=== PATIENT | male | born 1935 | race Caucasian/White ===

== ENCOUNTER → 2017-03-07 | Outpatient (CLI) | payer MEDICARE ==
[2017-03-07 09:18] LABS: Basophils % (A) 0 %; CH 29.8; CHCM 32.2; Eosinophils % (A) 1 %; HCT 52.6 % (39.0-53.0); HDW 2.39; HGB 16.6 gm/dL (13.0-17.5); Luc # (Auto) 0.13; Luc % (Auto) 2; Lymphocytes # (A) 1.4 k/uL (1.0-4.8); Lymphocytes % (A) 19 %; MCH 29.3 pg (25.0-35.0); MCHC 31.6 g/dL (31.0-37.0); MCV 92.7 fL (80.0-100.0); Monocytes # (A) 0.4 k/uL (0-1.0); Monocytes % (A) 5 %; Neutrophils # (A) 5.4 k/uL (1.3-7.7); Neutrophils % (A) 73 %; RBC 5.68 m/uL (4.30-5.90); RDW 13.8 % (11.5-15.5); WBC 7.3 k/uL (3.8-10.6); WBC (Perox) 7.26
[2017-03-07 09:40] LABS: ALT 34 U/L (21-72); AST 24 U/L (17-59); Alkaline Phosphatase 90 U/L (38-126); Anion Gap 11 mmol/L; Blood Urea Nitrogen 15 mg/dL (9-20); Calcium 9.5 mg/dL (8.4-10.2); Carbon Dioxide 22 mmol/L (22-30); Chloride 106 mmol/L (98-107); Cholesterol 239 mg/dL (<200); Glucose 111 mg/dL (74-99); HDL Cholesterol 60 mg/dL (40-60); Non-African American GFR(MDRD) >60 (>60 ml/min/1.73 sqM); Potassium 4.6 mmol/L (3.5-5.1); Sodium 139 mmol/L (137-145); Total Bilirubin 0.7 mg/dL (0.2-1.3); Triglycerides 100 mg/dL (<150)
== END | disposition home or self-care (01) ==
LOC: LABWHC1 08:35
PROVIDERS: ATTEND Internal Medicine
DX: E78.5 Hyperlipidemia, unspecified (principal)
CPT/HCPCS: 36415; 80053; 80061; 84439; 84443; 85025

== ENCOUNTER → 2018-10-01 | Outpatient (CLI) | payer MEDICARE ==
[2018-10-01 10:12] LABS: Basophils # (A) 0.1 k/uL (0-0.2); Basophils % (A) 1 %; Eosinophils # (A) 0.5 k/uL (0-0.7); Eosinophils % (A) 5 %; HCT 51.3 % (39.0-53.0); HGB 16.7 gm/dL (13.0-17.5); Lymphocytes # (A) 1.9 k/uL (1.0-4.8); Lymphocytes % (A) 19 %; MCH 30.2 pg (25.0-35.0); MCHC 32.5 g/dL (31.0-37.0); MCV 92.8 fL (80.0-100.0); Mean Platelet Volume 6.9; Monocytes # (A) 0.7 k/uL (0-1.0); Monocytes % (A) 7 %; Neutrophils # (A) 6.6 k/uL (1.3-7.7); Neutrophils % (A) 67 %; Platelet Count 245 k/uL (150-450); RBC 5.53 m/uL (4.30-5.90); RDW 14.1 % (11.5-15.5); WBC 9.9 k/uL (3.8-10.6)
[2018-10-01 16:06] LABS: Albumin 4.1 g/dL (3.80-4.90); Albumin/Globulin Ratio 1.71 (1.20-2.10); Anion Gap 8.7 mmol/L (4.00-12.00); Calcium 8.8 mg/dL (8.7-10.3); Carbon Dioxide 26.3 mmol/L (21.6-31.8); Globulin 2.4 g/dL (2.1-3.7); LDL Cholesterol,Calculated 124.6 mg/dL (0.0-131.0); Potassium 4.1 mmol/L (3.5-5.5); Total Bilirubin 0.7 mg/dL (0.3-1.2); Total Protein 6.5 g/dL (6.2-8.2); VLDL Calculation 24.4 mg/dL (5.00-40.00)
[2018-10-01 16:13] LABS: T4, Free (Free Thyroxine) 1.1 ng/dL (0.80-1.80)
== END ==
LOC: LABWHC1 08:21
PROVIDERS: ATTEND Internal Medicine
DX: Z00.00 Encounter for general adult medical examination without abnormal findings (principal); E78.5 Hyperlipidemia, unspecified; I10 Essential (primary) hypertension
CPT/HCPCS: 36415; 80053; 80061; 84439; 84443; 85025

== ENCOUNTER → 2019-10-07 | Outpatient (CLI) | payer MEDICARE ==
[2019-10-07 08:58] LABS: Basophils % (A) 1 %; Eosinophils # (A) 0.3 k/uL (0-0.7); Eosinophils % (A) 4 %; HCT 50.7 % (39.0-53.0); HGB 16.6 gm/dL (13.0-17.5); Lymphocytes # (A) 1.8 k/uL (1.0-4.8); Lymphocytes % (A) 24 %; MCH 30.6 pg (25.0-35.0); MCHC 32.7 g/dL (31.0-37.0); MCV 93.6 fL (80.0-100.0); Mean Platelet Volume 7.4; Monocytes # (A) 0.4 k/uL (0-1.0); Monocytes % (A) 6 %; Neutrophils # (A) 4.6 k/uL (1.3-7.7); Neutrophils % (A) 63 %; Platelet Count 238 k/uL (150-450); RBC 5.42 m/uL (4.30-5.90); RDW 13.6 % (11.5-15.5); WBC 7.2 k/uL (3.8-10.6)
[2019-10-07 16:09] LABS: African American GFR (CKD) 96.4 (60.0-200.0); Albumin 4.5 g/dL (3.80-4.90); Albumin/Globulin Ratio 1.96 (1.60-3.17); Anion Gap 10.3 mmol/L (4.00-12.00); Calcium 9.3 mg/dL (8.7-10.3); Carbon Dioxide 23.7 mmol/L (21.6-31.8); Chol/HDL Ratio 4.13; Globulin 2.3 g/dL (1.6-3.3); Non-African American GFR(CKD) 83.2 (60.0-200.0); Potassium 4.3 mmol/L (3.5-5.5); Total Bilirubin 0.6 mg/dL (0.2-1.2); Total Protein 6.8 g/dL (6.2-8.2)
[2019-10-07 16:17] LABS: T4, Free (Free Thyroxine) 1.1 ng/dL (0.80-1.80)
== END ==
LOC: LABWHC1 08:15
PROVIDERS: ATTEND Internal Medicine
DX: Z00.00 Encounter for general adult medical examination without abnormal findings (principal); I10 Essential (primary) hypertension; E78.5 Hyperlipidemia, unspecified
CPT/HCPCS: 36415; 80053; 80061; 84439; 84443; 85025

== ENCOUNTER 2019-12-12 15:28 | Emergency (ER) | payer MEDICARE ==
[2019-12-12 15:38] VITALS: BP 155/80; PULSE 88; TEMP 98
[2019-12-12] MEDS ORDERED: LIDOCAINE 1% INJ 10MG/ML (20 ML MDV) SQ ONE (15:54)
[2019-12-12] MEDS ORDERED: DIPH,PERTUS(ACELL)TETVAC-LF 0.5 ML VIAL IM ONE (15:54)
--- NOTE | 2019-12-12 16:34 | ED ---
Wound/Laceration HPI - General Chief Complaint: Wound/Laceration Stated Complaint: Cheek laceration Time Seen by Provider: 12/12/19 15:44 Source: patient Mode of arrival: ambulatory Limitations: no limitations - History of Present Illness Initial Comments: Patient is an 84-year-old male presenting to emergency Department with complaints of a small laceration on the right side of his cheek. Patient states he was sawing some wood when a piece flew off and hit him on the right side of his cheek, just underneath his right eye. He states there was no foreign objects in his right eye. He has no other injuries at this time. He denies being on blood thinners. He is controlled at this time with a bandage. Patient is unsure of his last tetanus vaccine but admits it has been close to 20 years. Patient has no other complaints. Upon arrival to the ER his vital signs are stable. - Related Data Home Medications Medication Instructions Recorded Confirmed Albuterol Sulfate [Proair Hfa] 2 puff INHALATION BID 04/08/14 08/01/16 Fluticasone Propionate [Flovent 1 puff INHALATION DIRECTED PRN 04/08/14 08/01/16 Diskus] Fluticasone/Salmeterol [Advair 1 puff INHALATION BID 04/08/14 08/01/16 100-50 Diskus] Montelukast [Singulair] 10 mg PO HS 04/08/14 08/01/16 Tamsulosin HCl 0.4 mg PO DAILY 04/08/14 08/01/16 Ferrous Sulfate [Feosol] 325 mg PO BID 07/31/16 07/31/16 Naproxen Sodium [Aleve] 220 mg PO HS PRN 07/31/16 08/01/16 diphenhydrAMINE [Benadryl] 50 mg PO HS PRN 07/31/16 08/01/16 Allergies Allergy/AdvReac Type Severity Reaction Status Date / Time No Known Allergies Allergy Verified 07/31/16 10:31 Review of Systems ROS Statement: Those systems with pertinent positive or pertinent negative responses have been documented in the HPI. ROS Other: All systems not noted in ROS Statement are negative. Past Medical History Past Medical History: Asthma, Prostate Disorder Additional Past Medical History / Comment(s): spouse states "was passing blood with stools,hx hemorrhoids",HIATAL HERNIA, SARCOIDOSIS,enlarged prostate History of Any Multi-Drug Resistant Organisms: None Reported Past Surgical History: Appendectomy, Orthopedic Surgery Additional Past Surgical History / Comment(s): RT ROTATOR CUFF, LYMPH NODE BX Past Anesthesia/Blood Transfusion Reactions: No Reported Reaction Past Psychological History: No Psychological Hx Reported Smoking Status: Never smoker Past Alcohol Use History: None Reported Past Drug Use History: None Reported - Past Family History Mother Family Medical History: No Reported History Father Family Medical History: No Reported History General Exam - General Exam Comments Initial Comments: GENERAL: Well-appearing, well-nourished and in no acute distress. HEAD: Atraumatic, normocephalic. EYES: Pupils equal round and reactive to light, extraocular movements intact, sclera anicteric, conjunctiva are normal. ENT: TMs normal, nares patent, oropharynx clear without exudates. Moist mucous membranes. NECK: Normal range of motion, supple without lymphadenopathy or JVD. LUNGS: Breath sounds clear to auscultation bilaterally and equal. No wheezes rales or rhonchi. HEART: Regular rate and rhythm without murmurs, rubs or gallops. ABDOMEN: Soft, nontender, normoactive bowel sounds. No guarding, no rebound. No masses appreciated. EXTREMITIES: Normal range of motion, no pitting or edema. NEUROLOGICAL: Normal speech, normal gait. PSYCH: Normal mood, normal affect. SKIN: Warm, Dry, normal turgor, no rashes. Patient has a 0.5 cm laceration to the lateral aspect of the right cheek below the right eye. Bleeding is controlled at this time. Limitations: no limitations Course Vital Signs 12/12/19 12/12/19 15:34 16:35 Temperature 98.0 F Pulse Rate 88 Respiratory 18 16 Rate Blood Pressure 155/80 O2 Sat by Pulse 96 Oximetry Procedures - Laceration Laceration #1 Consent Obtained: verbal consent Indication: laceration Site: face (Right cheek) Size (cm): 0 (0.5) Description: linear Depth: simple, single layer Anesthetic Used: lidocaine 1% Anesthesia Technique: local infiltration Amount (mls): 2 Pre-repair: irrigated extensively Type of Sutures: nylon Size of Sutures: 5-0 Number of Sutures: 1 Technique: simple, interrupted Patient Tolerated Procedure: well Medical Decision Making - Medical Decision Making Patient is an 84-year-old male presenting with a 0.5 cm laceration to his right cheek after a piece of wood flew at home from his saw. He has no other injuries. Wound was irrigated and closed with one, 5 0-0 suture. Patient tolerated procedure well. Patient's tetanus vaccine was also updated today. Patient will have suture removed in 7-10 days. Return parameters were discussed with the patient and he verbalized understanding. He is stable for discharge. Disposition Clinical Impression: Laceration of right cheek without complication Disposition: HOME SELF-CARE Condition: Stable Instructions (If sedation given, give patient instructions): Care For Your Stitches (ED) Additional Instructions: Please return to the Emergency Department if symptoms worsen or any other concerns. Stitch needs to be removed in 7-10 days. Keep wound covered while working. Is patient prescribed a controlled substance at d/c from ED?: No Referrals: Mitesh Chris MD [Primary Care Provider] - 1-2 days
[2019-12-12 16:39] VITALS: RESP 16
== END 2019-12-12 16:35 | disposition home or self-care (01) ==
LOC: EC 15:28
DX: S01.411A Laceration without foreign body of right cheek and temporomandibular area, initial encounter (principal); Z23 Encounter for immunization; J45.909 Unspecified asthma, uncomplicated; Z79.899 Other long term (current) drug therapy; Z79.51 Long term (current) use of inhaled steroids; W20.8XXA Other cause of strike by thrown, projected or falling object, initial encounter
CPT/HCPCS: 99282; 90471; 12011; 90715; J2001

== ENCOUNTER 2019-12-31 16:13 | Inpatient (IN) | payer MEDICARE ==
[2019-12-31] MEDS ORDERED: PANTOPRAZOLE 40 MG/10 ML VIAL IVP STA (16:22)
--- NOTE | 2019-12-31 16:50 | ED ---
General Adult HPI - General Chief complaint: GI Bleed Stated complaint: poss GI bleed Time Seen by Provider: 12/31/19 16:22 Source: patient, RN notes reviewed, old records reviewed Mode of arrival: ambulatory Limitations: no limitations - History of Present Illness Initial comments: 84 yo male presenting with rectal bleeding. Patient had 5 episodes over the past 24 hours of rectal bleeding describes as very dark red, black. Denies significant abdominal pain. No history of peptic ulcer disease. Patient believes his last colonoscopy was approximately 5 years ago and reports this was normal. He is not on any anticoagulation or antiplatelet medication. No vomiting. No fever. No dyspnea. - Related Data Home Medications Medication Instructions Recorded Confirmed Albuterol Sulfate [Proair Hfa] 2 puff INHALATION BID 04/08/14 08/01/16 Fluticasone Propionate [Flovent 1 puff INHALATION DIRECTED PRN 04/08/14 08/01/16 Diskus] Fluticasone/Salmeterol [Advair 1 puff INHALATION BID 04/08/14 08/01/16 100-50 Diskus] Montelukast [Singulair] 10 mg PO HS 04/08/14 08/01/16 Tamsulosin HCl 0.4 mg PO DAILY 04/08/14 08/01/16 Ferrous Sulfate [Feosol] 325 mg PO BID 07/31/16 07/31/16 Naproxen Sodium [Aleve] 220 mg PO HS PRN 07/31/16 08/01/16 diphenhydrAMINE [Benadryl] 50 mg PO HS PRN 07/31/16 08/01/16 Allergies Allergy/AdvReac Type Severity Reaction Status Date / Time No Known Allergies Allergy Verified 12/31/19 16:18 Review of Systems ROS Statement: Those systems with pertinent positive or pertinent negative responses have been documented in the HPI. ROS Other: All systems not noted in ROS Statement are negative. Past Medical History Past Medical History: Asthma, Hyperlipidemia, Prostate Disorder Additional Past Medical History / Comment(s): spouse states "was passing blood with stools,hx hemorrhoids",HIATAL HERNIA, SARCOIDOSIS,enlarged prostate, History of Any Multi-Drug Resistant Organisms: None Reported Past Surgical History: Appendectomy, Orthopedic Surgery Additional Past Surgical History / Comment(s): RT ROTATOR CUFF, LYMPH NODE BX Past Anesthesia/Blood Transfusion Reactions: No Reported Reaction Past Psychological History: No Psychological Hx Reported Smoking Status: Never smoker Past Alcohol Use History: None Reported Past Drug Use History: None Reported - Past Family History Mother Family Medical History: No Reported History Father Family Medical History: No Reported History General Exam Limitations: no limitations General appearance: alert, in no apparent distress Head exam: Present: atraumatic, normocephalic Eye exam: Present: normal appearance, PERRL ENT exam: Present: normal exam, mucous membranes dry Neck exam: Present: normal inspection. Absent: tenderness, meningismus Respiratory exam: Present: normal lung sounds bilaterally. Absent: respiratory distress, wheezes Cardiovascular Exam: Present: normal rhythm, tachycardia GI/Abdominal exam: Present: soft. Absent: distended, tenderness, guarding Rectal exam: Present: black stool, bloody stool, hemorrhoids (No active bleeding from hemorrhoids) Extremities exam: Present: normal inspection, normal capillary refill Neurological exam: Present: alert, oriented X3, CN II-XII intact. Absent: motor sensory deficit Psychiatric exam: Present: normal affect, normal mood Skin exam: Present: warm, dry, intact. Absent: cyanosis, diaphoretic Course Vital Signs 12/31/19 12/31/19 12/31/19 16:14 16:18 17:18 Temperature 97.5 F L Pulse Rate 110 H 90 85 Respiratory 18 20 Rate Blood Pressure 123/73 O2 Sat by Pulse 94 L 97 96 Oximetry 12/31/19 12/31/19 12/31/19 17:21 17:30 18:00 Temperature Pulse Rate 87 90 Respiratory Rate Blood Pressure 128/90 105/81 O2 Sat by Pulse 95 96 96 Oximetry 12/31/19 12/31/19 18:18 18:30 Temperature Pulse Rate 83 85 Respiratory Rate Blood Pressure 126/69 O2 Sat by Pulse 97 96 Oximetry Medical Decision Making - Medical Decision Making 84-year-old male with GI bleed, 5 episodes of dark red to black stool over the past 24 hours. No anticoagulation. Vital signs do reveal some tachycardia, stable blood pressure. Patient has had no bleeding while in the emergency department. He is started on proton pump inhibitor as some of the stool is melanotic. He's admitted to Dr. Quiñonez service with both press service reader and pulmonology on consult. Currently his hemoglobin is stable, initial CBC did show from cytopenia with a platelet count of 8, this was immediately repeated and was a lab abnormality patient has normal platelets. Hemoglobin will be tren ded. - Lab Data Result diagrams: 12/31/19 17:45 12/31/19 17:15 Lab Results 12/31/19 12/31/19 12/31/19 Range/Units 16:40 16:48 16:48 WBC 3.6 L (3.8-10.6) k/uL RBC 4.69 (4.30-5.90) m/uL Hgb 14.4 (13.0-17.5) gm/dL Hct 43.4 (39.0-53.0) % MCV 92.5 (80.0-100.0) fL MCH 30.7 (25.0-35.0) pg MCHC 33.2 (31.0-37.0) g/dL RDW 13.3 (11.5-15.5) % Plt Count 8 L* (150-450) k/uL Neutrophils % 58 % Lymphocytes % 30 % Monocytes % 6 % Eosinophils % 5 % Basophils % 0 % Neutrophils # 2.1 (1.3-7.7) k/uL Lymphocytes # 1.1 (1.0-4.8) k/uL Monocytes # 0.2 (0-1.0) k/uL Eosinophils # 0.2 (0-0.7) k/uL Basophils # 0.0 (0-0.2) k/uL Manual Slide Review Performed PT (9.0-12.0) sec INR (<1.2) APTT (22.0-30.0) sec Sodium (137-145) mmol/L Potassium (3.5-5.1) mmol/L Chloride (98-107) mmol/L Carbon Dioxide (22-30) mmol/L Anion Gap mmol/L BUN (9-20) mg/dL Creatinine (0.66-1.25) mg/dL Est GFR (CKD-EPI)AfAm (>60 ml/min/1.73 sqM) Est GFR (CKD-EPI)NonAf (>60 ml/min/1.73 sqM) Glucose (74-99) mg/dL Plasma Lactic Acid Gareth (0.7-2.0) mmol/L Calcium (8.4-10.2) mg/dL Magnesium (1.6-2.3) mg/dL Total Bilirubin (0.2-1.3) mg/dL AST (17-59) U/L ALT (4-49) U/L Alkaline Phosphatase (38-126) U/L Total Protein (6.3-8.2) g/dL Albumin (3.5-5.0) g/dL Stool Occult Blood Positive (Negative) Blood Type Blood Type Confirm A Negative Blood Type Recheck Bld Type Recheck Status Antibody Screen Spec Expiration Date 12/31/19 12/31/19 12/31/19 Range/Units 16:48 16:48 17:15 WBC (3.8-10.6) k/uL RBC (4.30-5.90) m/uL Hgb (13.0-17.5) gm/dL Hct (39.0-53.0) % MCV (80.0-100.0) fL MCH (25.0-35.0) pg MCHC (31.0-37.0) g/dL RDW (11.5-15.5) % Plt Count (150-450) k/uL Neutrophils % % Lymphocytes % % Monocytes % % Eosinophils % % Basophils % % Neutrophils # (1.3-7.7) k/uL Lymphocytes # (1.0-4.8) k/uL Monocytes # (0-1.0) k/uL Eosinophils # (0-0.7) k/uL Basophils # (0-0.2) k/uL Manual Slide Review PT (9.0-12.0) sec INR (<1.2) APTT (22.0-30.0) sec Sodium 136 L (137-145) mmol/L Potassium 4.5 (3.5-5.1) mmol/L Chloride 105 (98-107) mmol/L Carbon Dioxide 25 (22-30) mmol/L Anion Gap 6 mmol/L BUN 16 (9-20) mg/dL Creatinine 0.78 (0.66-1.25) mg/dL Est GFR (CKD-EPI)AfAm >90 (>60 ml/min/1.73 sqM) Est GFR (CKD-EPI)NonAf 84 (>60 ml/min/1.73 sqM) Glucose 117 H (74-99) mg/dL Plasma Lactic Acid Gareth 1.6 (0.7-2.0) mmol/L Calcium 9.1 (8.4-10.2) mg/dL Magnesium 2.0 (1.6-2.3) mg/dL Total Bilirubin 0.6 (0.2-1.3) mg/dL AST 25 (17-59) U/L ALT 20 (4-49) U/L Alkaline Phosphatase 74 (38-126) U/L Total Protein 6.8 (6.3-8.2) g/dL Albumin 3.9 (3.5-5.0) g/dL Stool Occult Blood (Negative) Blood Type A Negative Blood Type Confirm Blood Type Recheck No Previous Record Bld Type Recheck Status CABO Indicated Antibody Screen NEGATIVE Spec Expiration Date 01/03/2020 - 234712/31/19 12/31/19 Range/Units 17:45 18:05 WBC 7.4 (3.8-10.6) k/uL RBC 4.75 (4.30-5.90) m/uL Hgb 14.4 (13.0-17.5) gm/dL Hct 43.5 (39.0-53.0) % MCV 91.6 (80.0-100.0) fL MCH 30.4 (25.0-35.0) pg MCHC 33.1 (31.0-37.0) g/dL RDW 13.3 (11.5-15.5) % Plt Count 230 D (150-450) k/uL Neutrophils % 63 % Lymphocytes % 24 % Monocytes % 7 % Eosinophils % 4 % Basophils % 0 % Neutrophils # 4.7 (1.3-7.7) k/uL Lymphocytes # 1.8 (1.0-4.8) k/uL Monocytes # 0.5 (0-1.0) k/uL Eosinophils # 0.3 (0-0.7) k/uL Basophils # 0.0 (0-0.2) k/uL Manual Slide Review PT 10.8 (9.0-12.0) sec INR 1.1 (<1.2) APTT 24.5 (22.0-30.0) sec Sodium (137-145) mmol/L Potassium (3.5-5.1) mmol/L Chloride (98-107) mmol/L Carbon Dioxide (22-30) mmol/L Anion Gap mmol/L BUN (9-20) mg/dL Creatinine (0.66-1.25) mg/dL Est GFR (CKD-EPI)AfAm (>60 ml/min/1.73 sqM) Est GFR (CKD-EPI)NonAf (>60 ml/min/1.73 sqM) Glucose (74-99) mg/dL Plasma Lactic Acid Gareth (0.7-2.0) mmol/L Calcium (8.4-10.2) mg/dL Magnesium (1.6-2.3) mg/dL Total Bilirubin (0.2-1.3) mg/dL AST (17-59) U/L ALT (4-49) U/L Alkaline Phosphatase (38-126) U/L Total Protein (6.3-8.2) g/dL Albumin (3.5-5.0) g/dL Stool Occult Blood (Negative) Blood Type Blood Type Confirm Blood Type Recheck Bld Type Recheck Status Antibody Screen Spec Expiration Date Critical Care Time Critical Care Time: Yes Total Critical Care Time: 35 Disposition Clinical Impression: Melena, Hematochezia Disposition: ADMITTED IP TO THIS [facility] Condition: Stable Is patient prescribed a controlled substance at d/c from ED?: No Referrals: Mitesh Chris MD [Primary Care Provider] - 1-2 days Decision to Admit Reason: Admit from EC Decision Date: 12/31/19 Decision Time: 18:38
[2019-12-31 17:23] LABS: Basophils % (A) 0 %; Eosinophils # (A) 0.2 k/uL (0-0.7); Eosinophils % (A) 5 %; HCT 43.4 % (39.0-53.0); HGB 14.4 gm/dL (13.0-17.5); Lymphocytes # (A) 1.1 k/uL (1.0-4.8); Lymphocytes % (A) 30 %; MCH 30.7 pg (25.0-35.0); MCHC 33.2 g/dL (31.0-37.0); MCV 92.5 fL (80.0-100.0); Mean Platelet Volume 15.1; Monocytes # (A) 0.2 k/uL (0-1.0); Monocytes % (A) 6 %; Neutrophils # (A) 2.1 k/uL (1.3-7.7); Neutrophils % (A) 58 %; RBC 4.69 m/uL (4.30-5.90); RDW 13.3 % (11.5-15.5); WBC 3.6 k/uL (3.8-10.6)
[2019-12-31 17:32] LABS: Platelet Count 8 k/uL (150-450)
[2019-12-31 17:50] LABS: ALT 20 U/L (4-49); AST 25 U/L (17-59); African American GFR (CKD) >90 (>60 ml/min/1.73 sqM); Albumin 3.9 g/dL (3.5-5.0); Alkaline Phosphatase 74 U/L (38-126); Anion Gap 6 mmol/L; Blood Urea Nitrogen 16 mg/dL (9-20); Calcium 9.1 mg/dL (8.4-10.2); Carbon Dioxide 25 mmol/L (22-30); Chloride 105 mmol/L (98-107); Glucose 117 mg/dL (74-99); Non-African American GFR(CKD) 84 (>60 ml/min/1.73 sqM); Potassium 4.5 mmol/L (3.5-5.1); Sodium 136 mmol/L (137-145); Total Bilirubin 0.6 mg/dL (0.2-1.3); Total Protein 6.8 g/dL (6.3-8.2)
[2019-12-31 18:00] LABS: Basophils % (A) 0 %; Eosinophils # (A) 0.3 k/uL (0-0.7); Eosinophils % (A) 4 %; HCT 43.5 % (39.0-53.0); HGB 14.4 gm/dL (13.0-17.5); Lymphocytes # (A) 1.8 k/uL (1.0-4.8); Lymphocytes % (A) 24 %; MCH 30.4 pg (25.0-35.0); MCHC 33.1 g/dL (31.0-37.0); MCV 91.6 fL (80.0-100.0); Mean Platelet Volume 7.5; Monocytes # (A) 0.5 k/uL (0-1.0); Monocytes % (A) 7 %; Neutrophils # (A) 4.7 k/uL (1.3-7.7); Neutrophils % (A) 63 %; RBC 4.75 m/uL (4.30-5.90); RDW 13.3 % (11.5-15.5); WBC 7.4 k/uL (3.8-10.6)
[2019-12-31] MEDS ORDERED: NALOXONE 0.4 MG/ML 1 ML VIAL IV PRN (18:08)
[2019-12-31 18:20] LABS: Platelet Count 230 k/uL (150-450)
[2019-12-31] MEDS: SODIUM CHLORIDE 0.9% 1,000 ML IV SCH (18:22)
[2019-12-31 18:31] LABS: INR 1.1 (<1.2); Partial Thromboplastin Time 24.5 sec (22.0-30.0); Prothrombin Time 10.8 sec (9.0-12.0)
[2019-12-31 23:53] LABS: Basophils % (A) 0 %; Eosinophils # (A) 0.3 k/uL (0-0.7); Eosinophils % (A) 3 %; HCT 39.9 % (39.0-53.0); HGB 13.1 gm/dL (13.0-17.5); Lymphocytes # (A) 2.3 k/uL (1.0-4.8); Lymphocytes % (A) 27 %; MCH 30.7 pg (25.0-35.0); MCHC 32.8 g/dL (31.0-37.0); MCV 93.8 fL (80.0-100.0); Mean Platelet Volume 7.8; Monocytes # (A) 0.5 k/uL (0-1.0); Monocytes % (A) 6 %; Neutrophils # (A) 5.1 k/uL (1.3-7.7); Neutrophils % (A) 61 %; Platelet Count 219 k/uL (150-450); RBC 4.25 m/uL (4.30-5.90); RDW 13.3 % (11.5-15.5); WBC 8.3 k/uL (3.8-10.6)
[2020-01-01] MEDS: PANTOPRAZOLE 40 MG/10 ML VIAL IVP SCH ×3 (00:40→20:36)
[2020-01-01 07:08] LABS: Basophils % (A) 1 %; Eosinophils # (A) 0.2 k/uL (0-0.7); Eosinophils % (A) 3 %; HCT 39.5 % (39.0-53.0); HGB 12.5 gm/dL (13.0-17.5); Lymphocytes # (A) 1.6 k/uL (1.0-4.8); Lymphocytes % (A) 22 %; MCHC 31.7 g/dL (31.0-37.0); MCV 94.8 fL (80.0-100.0); Mean Platelet Volume 7.9; Monocytes # (A) 0.4 k/uL (0-1.0); Monocytes % (A) 6 %; Neutrophils # (A) 4.9 k/uL (1.3-7.7); Neutrophils % (A) 67 %; Platelet Count 200 k/uL (150-450); RBC 4.17 m/uL (4.30-5.90); RDW 13.5 % (11.5-15.5); WBC 7.4 k/uL (3.8-10.6)
[2020-01-01 07:21] LABS: ALT 17 U/L (4-49); AST 22 U/L (17-59); African American GFR (CKD) >90 (>60 ml/min/1.73 sqM); Albumin 3.2 g/dL (3.5-5.0); Alkaline Phosphatase 62 U/L (38-126); Anion Gap 6 mmol/L; Blood Urea Nitrogen 16 mg/dL (9-20); Calcium 8.1 mg/dL (8.4-10.2); Carbon Dioxide 23 mmol/L (22-30); Chloride 108 mmol/L (98-107); Glucose 119 mg/dL (74-99); Non-African American GFR(CKD) 83 (>60 ml/min/1.73 sqM); Potassium 4.1 mmol/L (3.5-5.1); Sodium 137 mmol/L (137-145); Total Bilirubin 0.8 mg/dL (0.2-1.3); Total Protein 5.8 g/dL (6.3-8.2)
--- NOTE | 2020-01-01 11:24 | CONS ---
CONSULTATION DATE OF SERVICE: 01/01/2020. REQUESTING PHYSICIAN: Dr. Chris. REASON FOR CONSULTATION: Acute GI bleed. HISTORY OF PRESENT ILLNESS: The patient is an 84 -year-old white male who came to the emergency room complaining of dark red stools that started on night. He woke up at 2:00 am in the morning and had some dark maroon-colored stools followed by multiple episodes. He came to the emergency room yesterday evening and had about another 3 episodes of dark maroon stools. He denies any associated abdominal pain. He reports no nausea, vomiting. He never had these symptoms in the past. He denies any significant change in his bowel habits. His last colonoscopy was in [address] Bobby that showed diverticulosis and some internal hemorrhoids. He has been taking Aleve every day for the last 8 months for degenerative joint disease. No prior history of peptic ulcer disease. His hemoglobin was 12.2 g/dL at the time of admission to the hospital. PAST MEDICAL HISTORY: Significant for hypertension, degenerative joint disease, hyperlipidemia, prostate disorder. MEDICATIONS: At home include albuterol and Flovent, Advair, Aleve, Feosol, tamsulosin and Singulair. ALLERGIES: None. SOCIAL HISTORY: No smoking. No alcohol use. FAMILY HISTORY: Unremarkable. PAST SURGICAL HISTORY: Appendectomy, right shoulder surgery. FAMILY HISTORY: Unremarkable. REVIEW OF SYSTEMS: CARDIOPULMONARY: No chest pain or shortness of breath. GENITOURINARY: No dysuria or hematuria. MUSCULOSKELETAL: Unremarkable. SKIN unremarkable. ENDOCRINE unremarkable. Psychiatric unremarkable. NEUROLOGY unremarkable. ENT/vision unremarkable. CONSTITUTIONAL: No recent weight loss. No fever, chills, night sweats. PHYSICAL EXAMINATION: Blood pressure 107/51, pulse is 76. Temperature 97.7. HEENT examination unremarkable. Conjunctivae pink. Sclerae anicteric. Oral cavity no lesions. NECK: No JVD or lymph node enlargement. CHEST: Clear to auscultation. HEART: Regular rate and rhythm. ABDOMEN: Soft, it was nontender. Nondistended. Bowel sounds are positive. No organomegaly. EXTREMITIES: No pedal edema. SKIN: No rashes. NEUROLOGIC: Alert and oriented x3. No focal deficits. LABS: Done at the time of admission to the hospital: WBC 7.1, hemoglobin 14.4, platelets normal. Today hemoglobin is down to 12.5. PTT INR is within normal limits. BUN and creatinine are within normal limits. Basic metabolic panel is normal. IMPRESSION: This is a patient who presents to the hospital with maroon colored stool for the last 2 days duration. He had about 6 or 7 episodes since night. He has been taking Aleve twice daily for 8 months for degenerative joint disease. His last colonoscopy was done by Dr. Bobby in 2015 that showed diverticulosis and hemorrhoids. At this time, it is unclear if we are dealing with an upper GI source or a colonic source of bleeding but patient is hemodynamically stable. His last bowel movement was last night. RECOMMENDATIONS: I had a lengthy discussion with the patient regarding further management. At this time, since it is unclear as to the source of bleeding, I will proceed with an upper endoscopy as well as colonoscopy tomorrow. I discussed with him risks, benefits, and complications of the procedure. He is agreeable to it. Thank you for this consultation. MMMATT / IJN: [id number] /
[2020-01-01] MEDS ORDERED: ALBUTEROL NEBULIZED 2.5 MG/3 ML INHALATION PRN (13:07)
[2020-01-01] MEDS: SODIUM CHLORIDE 0.9% 1,000 ML IV SCH (13:18)
--- NOTE | 2020-01-01 15:27 | P.HPIM ---
History of Present Illness patient is a pleasant 84-year-old gentleman uses naproxen twice a day and regular basis at home came in with complaints of multiple dark stools for last 3 days. Most of them are dark maroon stools some of which are red in color. De nied any pretty blood per rectum. Patient denied any abdominal pain denied any nausea vomiting. Patient's hemoglobinis 14.4. Patient was started on IV fluids is admitted for GI bleed.patient denied any fever chills. Review of Systems REVIEW OF SYSTEMS: CONSTITUTIONAL: No fever, no malaise, no fatigue. HEENT: No recent visual problems or hearing problems. Denied any sore throat. CARDIOVASCULAR: No chest pain, orthopnea, PND, no palpitations, no syncope. PULMONARY: No shortness of breath, no cough, no hemoptysis. GASTROINTESTINAL:as mentioned in HPI NEUROLOGICAL: No headaches, no weakness, no numbness. HEMATOLOGICAL: Denies any bleeding or petechiae. GENITOURINARY: Denies any burning micturition, frequency, or urgency. MUSCULOSKELETAL/RHEUMATOLOGICAL: Denies any joint pain, swelling, or any muscle pain. ENDOCRINE: Denies any polyuria or polydipsia. The rest of the 14-point review of systems is negative. Past Medical History Past Medical History: Asthma, Hyperlipidemia, Prostate Disorder Additional Past Medical History / Comment(s): spouse states "was passing blood with stools,hx hemorrhoids",HIATAL HERNIA, SARCOIDOSIS,enlarged prostate, History of Any Multi-Drug Resistant Organisms: None Reported Past Surgical History: Appendectomy, Orthopedic Surgery Additional Past Surgical History / Comment(s): RT ROTATOR CUFF, LYMPH NODE BX Past Anesthesia/Blood Transfusion Reactions: No Reported Reaction Past Psychological History: No Psychological Hx Reported Smoking Status: Never smoker Past Alcohol Use History: None Reported Past Drug Use History: None Reported - Past Family History Mother Family Medical History: No Reported History Father Family Medical History: No Reported History Medications and Allergies Home Medications Medication Instructions Recorded Confirmed Type Albuterol Sulfate [Proair Hfa] 2 puff INHALATION RT-QID PRN 04/08/14 12/31/19 History Fluticasone/Salmeterol [Advair 1 puff INHALATION RT-BID 04/08/14 12/31/19 History 100-50 Diskus] Montelukast [Singulair] 10 mg PO HS 04/08/14 12/31/19 History Tamsulosin HCl 0.4 mg PO BID 04/08/14 12/31/19 History Ferrous Sulfate [Feosol] 325 mg PO BID 07/31/16 12/31/19 History Naproxen Sodium [Aleve] 220 mg PO HS PRN 07/31/16 12/31/19 History Simvastatin [Zocor] 20 mg PO HS 12/31/19 12/31/19 History Allergies Allergy/AdvReac Type Severity Reaction Status Date / Time No Known Allergies Allergy Verified 12/31/19 19:55 Physical Exam Vitals: Vital Signs Temp Pulse Pulse Resp BP BP Pulse Ox 01/01/20 12:00 79 20 108/61 96 01/01/20 08:00 97.7 F 78 20 111/57 97 01/01/20 04:00 97.6 F 76 16 107/57 97 01/01/20 00:00 77 16 98/61 96 12/31/19 21:00 97.5 F L 85 16 139/77 96 12/31/19 20:00 83 18 105/55 95 12/31/19 19:30 83 17 110/70 97 12/31/19 19:00 84 18 103/69 96 12/31/19 18:30 85 126/69 96 12/31/19 18:18 83 97 12/31/19 18:00 90 105/81 96 12/31/19 17:30 87 128/90 96 12/31/19 17:21 95 12/31/19 17:18 85 96 12/31/19 16:18 90 20 97 12/31/19 16:14 97.5 F L 110 H 18 123/73 94 L Intake and Output 01/01/20 01/01/20 01/01/20 06:59 14:59 22:59 Intake Total 350 Balance 350 Intake: Intake, IV Titration 350 Amount Sodium Chloride 0.9% 1, 350 000 ml @ 50 mls/hr IV . [facility] Rx#:[id number] Other: # Voids 1 2 Weight 77.5 kg PHYSICAL EXAMINATION: GENERAL: The patient is alert and oriented x3, not in any acute distress. Well developed, well nourished. HEENT: Pupils are round and equally reacting to light. EOMI. No scleral icterus. No conjunctival pallor. Normocephalic, atraumatic. No pharyngeal erythema. No t hyromegaly. CARDIOVASCULAR: S1 and S2 present. No murmurs, rubs, or gallops. PULMONARY: Chest is clear to auscultation, no wheezing or crackles. ABDOMEN: Soft, nontender, nondistended, normoactive bowel sounds. No palpable organomegaly. MUSCULOSKELETAL: No joint swelling or deformity. EXTREMITIES: No cyanosis, clubbing, or pedal edema. NEUROLOGICAL: Gross neurological examination did not reveal any focal deficits. SKIN: No rashes. Results CBC & Chem 7: 01/01/20 06:51 01/01/20 06:51 Labs: Abnormal Lab Results - Last 24 Hours (Table) 12/31/19 12/31/19 12/31/19 Range/Units 16:48 17:15 23:42 WBC 3.6 L (3.8-10.6) k/uL RBC 4.25 L (4.30-5.90) m/uL Hgb (13.0-17.5) gm/dL Plt Count 8 L* (150-450) k/uL Sodium 136 L (137-145) mmol/L Chloride (98-107) mmol/L Glucose 117 H (74-99) mg/dL Calcium (8.4-10.2) mg/dL Total Protein (6.3-8.2) g/dL Albumin (3.5-5.0) g/dL 01/01/20 01/01/20 Range/Units 06:51 06:51 WBC (3.8-10.6) k/uL RBC 4.17 L (4.30-5.90) m/uL Hgb 12.5 L (13.0-17.5) gm/dL Plt Count (150-450) k/uL Sodium (137-145) mmol/L Chloride 108 H (98-107) mmol/L Glucose 119 H (74-99) mg/dL Calcium 8.1 L (8.4-10.2) mg/dL Total Protein 5.8 L (6.3-8.2) g/dL Albumin 3.2 L (3.5-5.0) g/dL Thrombosis Risk Factor Assmnt - Choose All That Apply Any of the Below Risk Factors Present?: No Other Risk Factors: Yes Each Risk Factor Represents 3 Points: Age 75 years or older Other congenital or acquired thrombophilia - If yes, enter type in comment: No Thrombosis Risk Factor Assessment Total Risk Factor Score: 3 Thrombosis Risk Factor Assessment Level: Moderate Risk Assessment and Plan Plan: acute blood loss anemia from probably upper GI bleed: Patient was started on Protonix twice a day which will be continued, nonsteroidal anti-inflammatories were discontinued and patient was counseled that the patient probably need to just stay with extra strength Tylenol for back pain and arthritis. Patient will undergo upper GI endoscopy and colonoscopy please refer to gastroenterology documentation regarding this. -asthma without any acute exacerbation patient will be resumed on his home regimen of inhaled steroids inhalational treatments -Hyperlipidemia -Benign prostatic hypertrophy
[2020-01-01] MEDS ORDERED: PEG 3350-NA SULF,BICARB,CL/KCL 4,000 ML BOTTLE PO ONE (16:00)
[2020-01-01] MEDS: TAMSULOSIN 0.4 MG CAP.ER.24H PO SCH ×2 (16:44→20:35)
[2020-01-01] MEDS: ATORVASTATIN 10 MG TAB PO SCH (20:36)
[2020-01-01] MEDS: MONTELUKAST 10 MG TAB PO SCH (20:36)
[2020-01-01] MEDS ORDERED: FERROUS SULFATE 325 MG TAB PO SCH (21:00)
[2020-01-01] MEDS: SYMBICORT 80-4.5 MCG INHALER INHALATION SCH (21:08)
[2020-01-02] MEDS: SODIUM CHLORIDE 0.9% 1,000 ML IV SCH ×2 (06:29→11:26)
[2020-01-02] MEDS: SYMBICORT 80-4.5 MCG INHALER INHALATION SCH ×2 (07:22→18:51)
[2020-01-02] MEDS ORDERED: PROPOFOL 10 MG/ML 20 ML VIAL IV ONE (08:46)
[2020-01-02] MEDS ORDERED: IV FLUID CONTINUATION 800 ML IV ONE (08:46)
[2020-01-02] MEDS ORDERED: LIDOCAINE 1% INJ 10MG/ML (20 ML MDV) ONE (08:46)
--- NOTE | 2020-01-02 09:23 | P.PCN ---
Date of Procedure: 01/02/20 Procedure(s) Performed: Brief history: Patient is a pleasant 82-year-old white male admitted hospital with GI bleed. He had multiple episodes of maroon/dark-colored stools for 2 days. He was admitted hospital with a hemoglobin of 14 and dropped to 12 g/dL. He is hence scheduled for a upper endoscopy as well as colonoscopy as a part of evaluation of acute GI bleed. Procedure performed: Esophagogastroduodenoscopy with biopsy Colonoscopy with snare polypectomy Preoperative diagnosis: Acute GI bleed Anesthesia: MAC Procedure: After informed consent was obtained from the patient was brought into the endoscopy unit and IV sedation was administered by anesthesia under continuous monitoring. Initially upper endoscopy was done. The Olympus GF 160 video endoscope was inserted inserted into the mouth and esophagus intubated without any difficulty and was gradually advanced into the stomach and duodenum with [id number] difficulty and carefully examined. The bulb and second part of the duodenum appeared normal. The scope was then withdrawn into the stomach adequately insufflated with air and upon careful examination the antrum had mild gastritis and biopsies were done from this area. The ulcerations identified. No active upper GI bleed seen. The body, of the stomach had a J-shaped configuration. Mucosa of the cardia and fundus appeared normal. The scope was then withdrawn into the esophagus. Small hiatal hernia noted. The GE junction was located at 38 cm to the incisors. It appeared regular with no erythema erosions or ulcerations. Rest of the esophagus appeared normal. Patient tolerated the procedure well. At this time the patient continued to remain sedation. Initial digital rectal examination was normal. Olympus CF 160 video colonoscope was then inserted into the rectum and gradually advanced to the cecum without any difficulty. Careful examination was performed as the scope was gradually being withdrawn. The prep was fair. There was old blood noted throughout the entire colon and thorough irrigation was performed. Terminal ileum was intubated and 20 cm visualized which appeared normal with no blood seen. The cecum, appeared normal. In the ascending colon there was a 5-6 cm polyp that was removed by snare polypectomy. The ascending colon appeared normal. In the transverse colon there was a 1 cm broad-based polyp removed by snare polypectomy. Mucosa of the descending colon, sigmoid colon and rectum appeared normal. There were moderate left sided diverticulosis seen. Retroflexion was performed in the rectum and no lesions were noted. Patient tolerated the procedure well. Impression: 1. Upper endoscopy revealed a small hiatal hernia, J shaped stomach and mild antral gastritis. 2. Colonoscopy revealed 5-6 mid ascending colon polyp and 1 cm proximal transverse colon polyp status post polypectomy and diffuse left-sided diver ticulosis with some old blood noted throughout the colon. Recommendations: Findings of this examination were discussed with the patient . Recent GI bleed possibly diverticular in nature. We'll start him on a full liquid diet and watch him closely. Repeat CBC in the morning.
[2020-01-02] MEDS: PANTOPRAZOLE 40 MG/10 ML VIAL IVP SCH ×2 (09:39→20:15)
[2020-01-02] MEDS: TAMSULOSIN 0.4 MG CAP.ER.24H PO SCH ×2 (09:39→20:15)
--- NOTE | 2020-01-02 10:38 | P.PN ---
Subjective Patient is admitted for possible upper GI bleed patient underwent upper GI endoscopy and colonoscopy. Patient had a polypectomy today patient had some red blood stools today. Upper GI endoscopy did show antral gastritis. Constitutional: Denied any fatigue denied any fever. Cardio vascular: denied any chest pain, palpitations Gastrointestinal denied any nausea vomiting Pulmonary: Denied any shortness of breath cough Neurologic denied any new focal deficits All inpatient medications were reviewed and appropriate changes in these medications as dictated in the interval history and assessment and plan. Objective - Vital Signs Vital signs: Vital Signs Temp 98.3 F 01/02/20 08:00 Pulse 98 01/02/20 08:00 Resp 20 01/02/20 08:00 BP 151/82 01/02/20 08:00 Pulse Ox 95 01/02/20 08:00 Intake & Output 01/01/20 01/02/20 01/02/20 18:59 06:59 18:59 Intake Total 400 Output Total 360 300 Balance -360 100 Weight 80.4 kg Intake: IV 400 Output: Urine 360 300 Other: # Voids 4 1 1 - Exam PHYSICAL EXAMINATION: GENERAL: The patient is alert and oriented x3, not in any acute distress. Well developed, well nourished. HEENT: Pupils are round and equally reacting to light. EOMI. No scleral icterus. No conjunctival pallor. Normocephalic, atraumatic. No pharyngeal erythema. No thyromegaly. CARDIOVASCULAR: S1 and S2 present. No murmurs, rubs, or gallops. PULMONARY: Chest is clear to auscultation, no wheezing or crackles. ABDOMEN: Soft, nontender, nondistended, normoactive bowel sounds. No palpable organomegaly. MUSCULOSKELETAL: No joint swelling or deformity. EXTREMITIES: No cyanosis, clubbing, or pedal edema. NEUROLOGICAL: Gross neurological examination did not reveal any focal deficits. SKIN: No rashes. - Labs CBC & Chem 7: 01/01/20 06:51 01/01/20 06:51 Assessment and Plan Plan: acute blood loss anemia from probably upper GI bleed: Patient still had some blood in the stools today continue on Protonix gastritis and upper GI endoscopy and a polyp was found which was removed from the ascending colon and transverse colon. There is some left-sided diverticulosis as well., nonsteroidal anti- inflammatories were discontinued As patient had blood in the stools today we'll continue to monitor today for patient has normal stools tomorrow patient will be discharged tomorrow -asthma without any acute exacerbation patient will be resumed on his home regimen of inhaled steroids inhalational treatments -Hyperlipidemia -Benign prostatic hypertrophy
[2020-01-02] MEDS: MONTELUKAST 10 MG TAB PO SCH (20:15)
[2020-01-02] MEDS: ATORVASTATIN 10 MG TAB PO SCH (20:15)
[2020-01-03 07:00] LABS: HCT 29.9 % (39.0-53.0); MCH 30.6 pg (25.0-35.0); MCHC 32.2 g/dL (31.0-37.0); Platelet Count 154 k/uL (150-450); RBC 3.15 m/uL (4.30-5.90); RDW 13.8 % (11.5-15.5)
[2020-01-03 07:08] LABS: Calcium 7.3 mg/dL (8.4-10.2); Potassium 3.9 mmol/L (3.5-5.1)
[2020-01-03 07:22] LABS: HGB 9.6 gm/dL (13.0-17.5)
[2020-01-03] MEDS: SYMBICORT 80-4.5 MCG INHALER INHALATION SCH ×2 (08:45→20:41)
[2020-01-03] MEDS: PANTOPRAZOLE 40 MG/10 ML VIAL IVP SCH ×2 (10:19→20:20)
[2020-01-03] MEDS: SODIUM CHLORIDE 0.9% 1,000 ML IV SCH ×3 (10:19→23:21)
[2020-01-03] MEDS: TAMSULOSIN 0.4 MG CAP.ER.24H PO SCH ×2 (10:20→20:19)
--- NOTE | 2020-01-03 10:21 | P.PN ---
Subjective Patient is admitted for possible upper GI bleed patient underwent upper GI endoscopy and colonoscopy. Patient had a polypectomy today patient had some red blood stools today. Upper GI endoscopy did show antral gastritis. 01/03/2020 Patient's hemoglobin has gone down but no active bleeding at this time this drop in hemoglobin is secondary to his GI bleed from admission. Patient had normal loose stools. No dark stools or blood in the stools at this time. Patient had only 1 bowel movement today morning. 's creatinine although went up from 0.9-4.1 nephrology will be consulted Constitutional: Denied any fatigue denied any fever. Cardio vascular: denied any chest pain, palpitations Gastrointestinal denied any nausea vomiting Pulmonary: Denied any shortness of breath cough Neurologic denied any new focal deficits All inpatient medications were reviewed and appropriate changes in these medications as dictated in the interval history and assessment and plan. Objective - Vital Signs Vital signs: Vital Signs Temp 98.2 F 01/03/20 08:30 Pulse 88 01/03/20 08:30 Resp 18 01/03/20 08:30 BP 118/59 01/03/20 08:30 Pulse Ox 96 01/03/20 08:30 Intake & Output 01/02/20 01/03/20 01/03/20 18:59 06:59 18:59 Intake Total 1050 600 236 Output Total 300 380 Balance 750 220 236 Weight 81.2 kg Intake: IV 400 600 Sodium Chloride 0.9% 1, 600 000 ml @ 75 mls/hr IV . [id number] [facility] Rx#:[id number] Oral 650 236 Output: Urine 300 380 Other: Voiding Method Toilet # Voids 1 0 - Exam PHYSICAL EXAMINATION: GENERAL: The patient is alert and oriented x3, not in any acute distress. Well developed, well nourished. HEENT: Pupils are round and equally reacting to light. EOMI. No scleral icterus. No conjunctival pallor. Normocephalic, atraumatic. No pharyngeal erythema. No thyromegaly. CARDIOVASCULAR: S1 and S2 present. No murmurs, rubs, or gallops. PULMONARY: Chest is clear to auscultation, no wheezing or crackles. ABDOMEN: Soft, nontender, nondistended, normoactive bowel sounds. No palpable organomegaly. MUSCULOSKELETAL: No joint swelling or deformity. EXTREMITIES: No cyanosis, clubbing, or pedal edema. NEUROLOGICAL: Gross neurological examination did not reveal any focal deficits. SKIN: No rashes. - Labs CBC & Chem 7: 01/03/20 06:02 01/03/20 06:02 Labs: Abnormal Lab Results - Last 24 Hours (Table) 01/03/20 01/03/20 Range/Units 06:02 06:02 RBC 3.15 L (4.30-5.90) m/uL Hgb 9.6 L D (13.0-17.5) gm/dL Hct 29.9 L (39.0-53.0) % Chloride 109 H (98-107) mmol/L Carbon Dioxide 20 L (22-30) mmol/L BUN 24 H (9-20) mg/dL Creatinine 4.18 H (0.66-1.25) mg/dL Glucose 103 H (74-99) mg/dL Calcium 7.3 L (8.4-10.2) mg/dL Assessment and Plan Plan: acute blood loss anemia from probably upper GI bleed: Patient still had some blood in the stools today continue on Protonix gastritis and upper GI endoscopy and a polyp was found which was removed from the ascending colon and transverse colon. There is some left-sided diverticulosis as well., nonsteroidal anti- inflammatories were discontinued. No more GI bleed at this time -asthma without any acute exacerbation patient will be resumed on his home regimen of inhaled steroids inhalational treatments -Hyperlipidemia -Benign prostatic hypertrophy -Acute renal failure etiology is not clear: Nephrology be consulted further workup with ultrasound of the kidney and urine testing
--- NOTE | 2020-01-03 10:35 | P.CNPUL ---
History of Present Illness Consult date: 01/03/20 Reason for consult: other Chief complaint: Dark red stools, GI bleeding History of present illness: 84-year-old white male patient who follows with Dr. Vargas for primary care services, and has history of mild intermittent bronchial asthma, ALLERGIC rhinitis, hyperlipidemia, and past history of sarcoidosis, who presented to the emergency department on 12/31/2019 for evaluation of dark red to black stools, multiple episodes starting on night. Patient regularly takes 2 Aleve for shoulder arthritis. He states he had a similar episode of dark red blood stools about a year ago but did not seek medical attention, and he only had a couple episodes then which resolved on its own. Patient went to see Dr. Vargas in the office and was directed to come to the emergency department. At any chest pain, denied any shortness of breath, denied any lightheadedness, he had a total of 5 episodes of dark red bloods stools at home. Admission blood work showed a myoglobin of 14.4, normal white count, INR was 1.1, platelet count was 8, however on subsequent redraw his platelet count was 230, serum sodium was 136, the rest of the electrolytes and renal profile was within normal limits, LFTs were within normal limits, and we'll call stool was positive for blood. Patient was started on PPI therapy, he underwent EGD and colonoscopy. Upper endoscopy revealed a small hiatal hernia, J-shaped stomach and mild antral gastritis. Colonoscopy revealed ascending colon polyp, and proximal transverse colon polyp patient had polypectomy. There was diffuse left-sided diverticulosis with some blood. Patient has not had any further bleeding, today's labs reveal hemoglobin of 13.1, white blood cell count 8.3, however there was acute rise in patient's creatinine, from 0.81 2.18 on today's labs, would be out of 24. Currently patient's asthma is under good control, and he is on Singulair, and Symbicort Review of Systems All systems: negative Constitutional: Denies chills, Denies fever Eyes: denies blurred vision, denies pain Ears, nose, mouth and throat: Denies headache, Denies sore throat Cardiovascular: Denies chest pain, Denies shortness of breath Respiratory: Denies cough Gastrointestinal: Reports hematochezia, Denies abdominal pain, Denies diarrhea, Denies nausea, Denies vomiting Musculoskeletal: Denies myalgias Integumentary: Denies pruritus, Denies rash Neurological: Denies numbness, Denies weakness Psychiatric: Denies anxiety, Denies depression Endocrine: Denies fatigue, Denies weight change Past Medical History Past Medical History: Asthma, Hyperlipidemia, Prostate Disorder Additional Past Medical History / Comment(s): spouse states "was passing blood with stools,hx hemorrhoids",HIATAL HERNIA, SARCOIDOSIS,enlarged prostate, History of Any Multi-Drug Resistant Organisms: None Reported Past Surgical History: Appendectomy, Orthopedic Surgery Additional Past Surgical History / Comment(s): RT ROTATOR CUFF, LYMPH NODE BX Past Anesthesia/Blood Transfusion Reactions: No Reported Reaction Past Psychological History: No Psychological Hx Reported Smoking Status: Never smoker Past Alcohol Use History: None Reported Past Drug Use History: None Reported - Past Family History Mother Family Medical History: No Reported History Father Family Medical History: No Reported History Medications and Allergies Home Medications Medication Instructions Recorded Confirmed Type Albuterol Sulfate [Proair Hfa] 2 puff INHALATION RT-QID PRN 04/08/14 12/31/19 History Fluticasone/Salmeterol [Advair 1 puff INHALATION RT-BID 04/08/14 12/31/19 History 100-50 Diskus] Montelukast [Singulair] 10 mg PO HS 04/08/14 12/31/19 History Tamsulosin HCl 0.4 mg PO BID 04/08/14 12/31/19 History Ferrous Sulfate [Feosol] 325 mg PO BID 07/31/16 12/31/19 History Simvastatin [Zocor] 20 mg PO HS 12/31/19 12/31/19 History Omeprazole [PriLOSEC] 40 mg PO DONTE-IVONEKFST #30 capsule. 01/03/20 Rx Allergies Allergy/AdvReac Type Severity Reaction Status Date / Time No Known Allergies Allergy Verified 12/31/19 19:55 Physical Exam Vitals: Vital Signs Temp Pulse Resp BP Pulse Ox 01/03/20 08:30 98.2 F 88 18 118/59 96 01/03/20 04:00 98.6 F 94 18 105/57 96 01/03/20 00:00 98.4 F 89 18 109/55 95 01/02/20 20:21 98.8 F 91 18 118/60 96 01/02/20 16:00 92 20 112/61 94 L 01/02/20 12:00 97 20 120/66 94 L Intake and Output 01/02/20 01/03/20 01/03/20 22:59 06:59 14:59 Intake Total 240 600 236 Output Total 380 Balance 240 220 236 Intake: IV 600 Sodium Chloride 0.9% 1, 600 000 ml @ 75 mls/hr IV . [id number] [facility] Rx#:[id number] Oral 240 236 Output: Urine 380 Other: Voiding Method Toilet Toilet # Voids 1 0 Weight 81.2 kg GENERAL EXAM: Alert, very pleasant, 84-year-old white male, on room air,, comfortable in no apparent distress. HEAD: Normocephalic/atraumatic. EYES: Normal reaction of pupils, equal size. Conjunctiva pink, sclera white. NOSE: Clear with pink turbinates. THROAT: No erythema or exudates. NECK: No masses, no JVD, no thyroid enlargement, no adenopathy. CHEST: No chest wall deformity. Symmetrical expansion. LUNGS: Equal air entry with no crackles, wheeze, rhonchi or dullness. CVS: Regular rate and rhythm, normal S1 and S2, no gallops, no murmurs, no rubs ABDOMEN: Soft, nontender. No hepatosplenomegaly, normal bowel sounds, no gua rding or rigidity. EXTREMITIES: No clubbing, no edema, no cyanosis, 2+ pulses and upper and lower extremities. MUSCULOSKELETAL: Muscle strength and tone normal. SPINE: No scoliosis or deformity SKIN: No rashes CENTRAL NERVOUS SYSTEM: Alert and oriented -3. No focal deficits, tone is normal in all 4 extremities. PSYCHIATRIC: Alert and oriented -3. Appropriate affect. Intact judgment and insight. Results - Laboratory Findings CBC and BMP: 01/03/20 06:02 01/03/20 06:02 PT/INR, D-dimer PT 10.8 sec (9.0-12.0) 12/31/19 18:05 INR 1.1 (<1.2) 12/31/19 18:05 Abnormal lab findings: Abnormal Labs 12/31/19 12/31/19 12/31/19 16:48 17:15 23:42 WBC 3.6 L RBC 4.25 L Hgb Hct Plt Count 8 L* Sodium 136 L Chloride Carbon Dioxide BUN Creatinine Glucose 117 H Calcium Total Protein Albumin 01/01/20 01/01/20 01/03/20 06:51 06:51 06:02 WBC RBC 4.17 L 3.15 L Hgb 12.5 L 9.6 L D Hct 29.9 L Plt Count Sodium Chloride 108 H Carbon Dioxide BUN Creatinine Glucose 119 H Calcium 8.1 L Total Protein 5.8 L Albumin 3.2 L 01/03/20 06:02 WBC RBC Hgb Hct Plt Count Sodium Chloride 109 H Carbon Dioxide 20 L BUN 24 H Creatinine 4.18 H Glucose 103 H Calcium 7.3 L Total Protein Albumin Assessment and Plan Plan: Assessment: #1. Acute GI blood loss anemia, patient presented with multiple episodes of black and dark red stools, EGD and colonoscopy revealed antral gastritis, and colon polyps, and left-sided diverticulosis #2. Acute kidney injury, possibly related to ATN, rule out obstructive uropathy, and possibly related to NSAIDs #3. Mild intermittent bronchial asthma, under good control, not currently active #4. Hyperlipidemia #5. Osteoarthritis #6. History of sarcoidosis #7. BPH on Flomax #8. Nonsmoker #9. ALLERGIC rhinitis Plan: Continue Symbicort and Singulair, patient's asthma is not currently active, there has been no further bleeding since yesterday, today's hemoglobin is 9.6, patient remains on IV fluids and PPI therapy, there has been no acute rise in patient's creatinine, renal ultrasound has been ordered, patient is on IV fluids, will defer to attending for management of the renal failure. I performed a history & physical examination of the patient and discussed their management with my nurse practitioner, Emilie Fields. I reviewed the nurse practitioner's note and agree with the documented findings and plan of care. Lung sounds are positive for clear breath sounds. The findings and the impression was discussed with the patient. I attest to the documentation by the nurse practitioner. Time with Patient: Greater than 30
--- NOTE | 2020-01-03 11:18 | P.NPCON ---
History of Present Illness - Reason for Consult acute renal failure - History of Present Illness Reason for consultation: Acute kidney injury History of present illness: Patient is a 84-year-old male seen in renal consultation for acute kidney injury. Patient's baseline creatinine is near 1 and is up to 4.18 today. Patient presented to the hospital with rectal bleeding. Patient states he noticed dark stool starting . He underwent EGD and colonoscopy on January 01 which revealed old blood in the colon but no acute bleeding. Patient's hemoglobin is 9.6 today. Patient states he had a bowel movement this morning without any active bleeding. He does admit to taking Aleve about 2 tabs daily for the last 2 years. No history of diabetes. No family history of renal disease. Patient states he also has history of BPH and follows with urology outpatient. Patient states he is maintained on Flomax outpatient. He states his urine output this admission has been on the lower side. He denies any hematuria or dysuria. No fever or chills. No vomiting or diarrhea. Hemodynamically stable. Vital signs are stable. General: The patient appeared well nourished and normally developed. HEENT: Head exam is unremarkable. Neck is without jugular venous distension. LUNGS: Lungs are clear to auscultation and percussion. Breath sounds decreased. HEART: Rate and Rhythm are regular. First and second heart sounds normal. No murmurs, rubs or gallops. ABDOMEN: Abdominal exam reveals normal bowel sounds. Non-tender and non- distended. No evidence of peritonitis. EXTREMITITES: No clubbing, cyanosis, or edema. Past Medical History Past Medical History: Asthma, Hyperlipidemia, Prostate Disorder Additional Past Medical History / Comment(s): spouse states "was passing blood with stools,hx hemorrhoids",HIATAL HERNIA, SARCOIDOSIS,enlarged prostate, History of Any Multi-Drug Resistant Organisms: None Reported Past Surgical History: Appendectomy, Orthopedic Surgery Additional Past Surgical History / Comment(s): RT ROTATOR CUFF, LYMPH NODE BX Past Anesthesia/Blood Transfusion Reactions: No Reported Reaction Past Psychological History: No Psychological Hx Reported Smoking Status: Never smoker Past Alcohol Use History: None Reported Past Drug Use History: None Reported - Past Family History Mother Family Medical History: No Reported History Father Family Medical History: No Reported History Medications and Allergies Home Medications Medication Instructions Recorded Confirmed Type Albuterol Sulfate [Proair Hfa] 2 puff INHALATION RT-QID PRN 04/08/14 12/31/19 History Fluticasone/Salmeterol [Advair 1 puff INHALATION RT-BID 04/08/14 12/31/19 History 100-50 Diskus] Montelukast [Singulair] 10 mg PO HS 04/08/14 12/31/19 History Tamsulosin HCl 0.4 mg PO BID 04/08/14 12/31/19 History Ferrous Sulfate [Feosol] 325 mg PO BID 07/31/16 12/31/19 History Simvastatin [Zocor] 20 mg PO HS 12/31/19 12/31/19 History Omeprazole [PriLOSEC] 40 mg PO DONTE-DERIC #30 capsule. 01/03/20 Rx Allergies Allergy/AdvReac Type Severity Reaction Status Date / Time No Known Allergies Allergy Verified 12/31/19 19:55 Physical Exam Vitals: Vital Signs Temp Pulse Resp BP Pulse Ox 01/03/20 08:30 98.2 F 88 18 118/59 96 01/03/20 04:00 98.6 F 94 18 105/57 96 01/03/20 00:00 98.4 F 89 18 109/55 95 01/02/20 20:21 98.8 F 91 18 118/60 96 01/02/20 16:00 92 20 112/61 94 L 01/02/20 12:00 97 20 120/66 94 L Intake and Output 01/02/20 01/03/20 01/03/20 22:59 06:59 14:59 Intake Total 240 600 236 Output Total 380 Balance 240 220 236 Intake: IV 600 Sodium Chloride 0.9% 1, 600 000 ml @ 75 mls/hr IV . [id number] [facility] Rx#:[id number] Oral 240 236 Output: Urine 380 Other: Voiding Method Toilet Toilet # Voids 1 0 Weight 81.2 kg Results - Lab Results Most recent lab results Calcium 7.3 mg/dL (8.4-10.2) L 01/03/20 06:02 Magnesium 2.0 mg/dL (1.6-2.3) 01/01/20 06:51 01/03/20 06:02 01/03/20 06:02 Assessment and Plan Plan: Assessment: 1. Acute kidney injury. Suspect urinary retention or obstructive uropathy. No significant hypotension. 2. Metabolic acidosis secondary to acute kidney injury. 3. GI bleed status post EGD and colonoscopy this admission. GI following. Plan: Perform straight catheterization now. Maintain Flomax. Follow-up kidney ultrasound. Maintain normal saline at 75 mL an hour. Repeat electrolyzes in the morning. Check UA. Thank you for the consultation. I will continue to follow the patient with you during his hospital stay.
--- NOTE | 2020-01-03 11:24 | US ---
EXAMINATION TYPE: US kidneys/renal and bladder DATE OF EXAM: 01/03/2020 COMPARISON: NONE CLINICAL HISTORY: acute kidney injury; hematochezia from taking Aleve per patient; enlarged prostate per patient history EXAM MEASUREMENTS: Right Kidney: 11.8 x 6.4 x 6.4 cm Left Kidney: 11.4 x 5.2 x 5.7 cm Post Void Residual Volume: NA as patient is unable to void Right Kidney: mild pelvic caliectasis noted, crescent shaped hypoechoic area noted adjacent to latera l cortex suggestive of sonographic "sweat sign" for renal failure Left Kidney: superior cortical simple cyst seen = 1.7 x 1.7 x 1.5cm; hyperechoic parallel lines noted inferior pole suggests vascular wall calcifications Bladder: appears well distended and patient stated is unable to void, but feels urge to void. Bilateral Jets seen: not seen Incidental findings of gallstones are noted. Kidneys show normal cortical medullary differentiation. IMPRESSION: Simple cyst left kidney. Incidental note of cholelithiasis.
[2020-01-03 12:57] LABS: Appearance,Urine Clear (Clear); Bilirubin,Urine Negative (Negative); Blood,Urine Moderate (Negative); Color,Urine Light Yellow; Glucose,Urine (UA) 1+ (Negative); Ketones,Urine Negative (Negative); Leukocyte Esterase,Urine Negative (Negative); Mucus,Urine Rare /hpf; Nitrite,Urine Negative (Negative); Protein,Urine Negative (Negative); RBC,Urine 116 /hpf (0-5); Specific Gravity,Urine 1.008 (1.001-1.035); Urobilinogen,Urine <2.0 mg/dL (<2.0); WBC,Urine 1 /hpf (0-5)
--- NOTE | 2020-01-03 16:37 | PN ---
PROGRESS NOTE DATE OF DICTATION: 01/03/2020 This patient is an 84-year-old pleasant white male admitted to the hospital with acute GI bleed. He underwent an EGD and colonoscopy by me yesterday. Upper endoscopy revealed mild gastritis. Colonoscopy revealed left-sided diverticulosis as well as a small colon polyp that was removed. The patient is doing better. He did not have any further episodes of bleeding. He did have some urinary retention and had a Richardson catheter placed yesterday. He denies any abdominal pain. No nausea, vomiting. No bowel movements all day today. PHYSICAL EXAMINATION: He appears comfortable, in no apparent distress. Vital signs are stable. Blood pressure is 118/59, pulse rate 88, temperature 98.2. HEENT examination unremarkable. Conjunctivae pink. Sclerae anicteric. Oral cavity no lesions. NECK: No JVD or lymph node enlargement. CHEST: Clear to auscultation. HEART: Regular rate and rhythm. ABDOMEN: Soft. It was non-tender, non-distended. Bowel sounds are positive. No organomegaly. EXTREMITIES: No pedal edema. SKIN: No rashes. NEUROLOGIC: Alert and oriented x3. No focal deficits. LABS: Labs from today show WBC 8, hemoglobin 9.5, platelets normal. Basic metabolic panel showed a BUN of 24 and creatinine 4.18. IMPRESSION: 1. Acute gastrointestinal bleed, possibly diverticular in nature. He is status post EGD and colonoscopy that was done yesterday which revealed mild antral gastritis and colon polyps as well as diffuse left-sided diverticulosis which appeared the source of bleeding. The patient is doing well. He has no further episodes of bleeding. Hemoglobin at 9.6 g/dL. 2. Elevated BUN and creatinine. He had a urinary catheter placed yesterday and Nephrology has been consulted. RECOMMENDATIONS: 1. Monitor CBC on a daily basis. 2. Advance diet as tolerated. 3. Await biopsy results. Will follow with you closely. Thank you for this consultation. MMODL / IJN: [id number] /
[2020-01-03] MEDS: MONTELUKAST 10 MG TAB PO SCH (20:19)
[2020-01-03] MEDS: ATORVASTATIN 10 MG TAB PO SCH (20:20)
[2020-01-04 07:36] LABS: Calcium 7.5 mg/dL (8.4-10.2); Magnesium 2.2 mg/dL (1.6-2.3); Potassium 3.8 mmol/L (3.5-5.1)
[2020-01-04] MEDS: SYMBICORT 80-4.5 MCG INHALER INHALATION SCH (07:38)
[2020-01-04] MEDS: TAMSULOSIN 0.4 MG CAP.ER.24H PO SCH (08:32)
[2020-01-04] MEDS: PANTOPRAZOLE 40 MG/10 ML VIAL IVP SCH (08:32)
[2020-01-04 09:02] VITALS: BP 125/72; PULSE 87; RESP 18; TEMP 97.9
--- NOTE | 2020-01-04 09:03 | P.PN ---
Subjective Progress Note Date: 01/04/20 84-year-old white male patient who follows with Dr. Vargas for primary care services, and has history of mild intermittent bronchial asthma, ALLERGIC rhinitis, hyperlipidemia, and past history of sarcoidosis, who presented to the emergency department on 12/31/2019 for evaluation of dark red to black stools, multiple episodes starting on night. Patient regularly takes 2 Aleve for shoulder arthritis. He states he had a similar episode of dark red blood stools about a year ago but did not seek medical attention, and he only had a couple episodes then which resolved on its own. Patient went to see Dr. Vargas in the office and was directed to come to the emergency department. Denies any chest pain, denied shortness of breath, denied any lightheadedness, he had a total of 5 episodes of dark red bloods stools at home. Admission blood work showed a myoglobin of 14.4, normal white count, INR was 1.1, platelet count was 8, however on subsequent redraw his platelet count was 230, serum sodium was 136, the rest of the electrolytes and renal profile was within normal limits, LFTs were within normal limits, and occult stool was positive for blood. Patient was started on PPI therapy, he underwent EGD and colonoscopy. Upper endoscopy revealed a small hiatal hernia, J-shaped stomach and mild antral gastritis. Colonoscopy revealed ascending colon polyp, and proximal transverse colon polyp patient had polypectomy. There was diffuse left-sided diverticulosis with some blood. Patient has not had any further bleeding, today's labs reveal hemoglobin of 13.1, white blood cell count 8.3, however there was acute rise in patient's creatinine, from 0.81 2.18 on today's labs, would be out of 24. Currently patient's asthma is under good control, and he is on Singulair, and Symbicort On 01/04/2020 patient seen in follow-up on [facility], she is resting comfortably in bed, in no acute distress, denies any dyspnea, room air pulse ox is 95%. Lung sounds reveal minimal crackles at the bilateral bases, no rhonchi, no wheezing, afebrile, hemodynamically stable, there has been no further bleeding overnight, today's labs have been reviewed, CBC has not resulted yet, BMP was done showing sodium of 139, potassium is 3.8, chloride is 110, CO2 is 25, BUN is 12, and creatinine is 1.22, renal profile significantly improved with insertion of Richardson catheter and IV fluids, nephrology is following. Ultrasound of kidneys and bladder showed simple cyst in the left kidney, an incidental note of cholelithiasis. Of note yesterday patient developed urinary retention, requiring placement of Richardson catheter with immediate return of 900 mL of urine Richardson catheter has been left overnight, and patient has produced over 2100 mL and urine output. Abdomen soft nontender, no nausea vomiting or diarrhea, patient is tolerating regular diet. Objective - Vital Signs Vital signs: Vital Signs Temp 98.2 F 01/04/20 01:45 Pulse 82 01/04/20 01:45 Resp 16 01/03/20 20:00 BP 112/67 01/04/20 01:45 Pulse Ox 95 01/04/20 01:45 Intake & Output 01/03/20 01/04/20 01/04/20 18:59 06:59 18:59 Intake Total 836 Output Total 1600 500 Balance -764 -500 Weight 81.3 kg Intake: Intake, IV Titration 600 Amount Sodium Chloride 0.9% 1, 600 000 ml @ 75 mls/hr IV . [id number] [facility] Rx#:[id number] Oral 236 Output: Urine 1600 500 Other: Voiding Method Indwelling Catheter # Voids 450 - Exam GENERAL EXAM: Alert, very pleasant, 84-year-old white male, on room air,, comfortable in no apparent distress. HEAD: Normocephalic/atraumatic. EYES: Normal reaction of pupils, equal size. Conjunctiva pink, sclera white. NOSE: Clear with pink turbinates. THROAT: No erythema or exudates. NECK: No masses, no JVD, no thyroid enlargement, no adenopathy. CHEST: No chest wall deformity. Symmetrical expansion. LUNGS: Equal air entry with no crackles, wheeze, rhonchi or dullness. CVS: Regular rate and rhythm, normal S1 and S2, no gallops, no murmurs, no rubs ABDOMEN: Soft, nontender. No hepatosplenomegaly, normal bowel sounds, no guarding or rigidity. EXTREMITIES: No clubbing, no edema, no cyanosis, 2+ pulses and upper and lower extremities. MUSCULOSKELETAL: Muscle strength and tone normal. SPINE: No scoliosis or deformity SKIN: No rashes CENTRAL NERVOUS SYSTEM: Alert and oriented -3. No focal deficits, tone is normal in all 4 extremities. PSYCHIATRIC: Alert and oriented -3. Appropriate affect. Intact judgment and insight. - Labs CBC & Chem 7: 01/03/20 06:02 01/04/20 06:55 Labs: Abnormal Lab Results - Last 24 Hours (Table) 01/03/20 01/04/20 Range/Units 12:20 06:55 Chloride 110 H (98-107) mmol/L Calcium 7.5 L (8.4-10.2) mg/dL Urine Glucose (UA) 1+ H (Negative) Urine Blood Moderate H (Negative) Urine RBC 116 H (0-5) /hpf Urine Mucus Rare H (None) /hpf Assessment and Plan Plan: Assessment: #1. Acute GI blood loss anemia, patient presented with multiple episodes of black and dark red stools, EGD and colonoscopy revealed antral gastritis, and colon polyps, and left-sided diverticulosis #2. Acute kidney injury related to urinary retention, improved with placement of Richardsno catheter and IV fluids #3. Mild intermittent bronchial asthma, under good control, not currently active #4. Hyperlipidemia #5. Osteoarthritis #6. History of sarcoidosis #7. BPH on Flomax #8. Nonsmoker #9. ALLERGIC rhinitis Plan: Renal profile has significantly improved, nephrology is following, Richardson remains in place, and patient produced 2100 mL and urine output overnight, there has been no further episodes of bleeding in the last 48 hours, remains on PPI therapy, today's CBC is pending, hemodynamically stable, no shortness of breath, no chest pain, asthma stable at this time, from pulmonary perspective patient can be considered for discharge home today. Is a possibility patient may need to go home with a Richardson catheter in place, we'll defer to the attending and nephrology for this decision, and patient usually follows with Dr. Mills from urology I performed a history & physical examination of the patient and discussed their management with my nurse practitioner, Emilie Fields. I reviewed the nurse practitioner's note and agree with the documented findings and plan of care. Lung sounds are positive for clear breath sounds. The findings and the impression was discussed with the patient. I attest to the documentation by the nurse practitioner. Time with Patient: Less than 30
--- NOTE | 2020-01-04 10:49 | P.PN ---
Subjective Patient is seen in follow-up for acute kidney injury. Etiology is urinary retention. He had a Richardson catheter inserted yesterday with 1.6 L of urine obtained immediately. Renal function is better today. No chest pain or shortness of breath. Vital signs are stable. General: The patient appeared well nourished and normally developed. HEENT: Head exam is unremarkable. Neck is without jugular venous distension. LUNGS: Lungs are clear to auscultation and percussion. Breath sounds decreased. HEART: Rate and Rhythm are regular. First and second heart sounds normal. No murmurs, rubs or gallops. ABDOMEN: Abdominal exam reveals normal bowel sounds. Non-tender and non- distended. No evidence of peritonitis. EXTREMITITES: No clubbing, cyanosis, or edema. Objective - Vital Signs Vital signs: Vital Signs Temp 97.9 F 01/04/20 09:02 Pulse 87 01/04/20 09:02 Resp 18 01/04/20 09:02 BP 125/72 01/04/20 09:02 Pulse Ox 96 01/04/20 09:02 Intake & Output 01/03/20 01/04/20 01/04/20 18:59 06:59 18:59 Intake Total 836 Output Total 1600 500 500 Balance -764 -500 -500 Weight 81.3 kg Intake: Intake, IV Titration 600 Amount Sodium Chloride 0.9% 1, 600 000 ml @ 75 mls/hr IV . [id number] [facility] Rx#:[id number] Oral 236 Output: Urine 1600 500 500 Other: Voiding Method Indwelling Catheter Indwelling Catheter # Voids 450 # Bowel Movements 2 - Labs CBC & Chem 7: 01/03/20 06:02 01/04/20 06:55 Labs: Abnormal Lab Results - Last 24 Hours (Table) 01/03/20 01/04/20 Range/Units 12:20 06:55 Chloride 110 H (98-107) mmol/L Calcium 7.5 L (8.4-10.2) mg/dL Urine Glucose (UA) 1+ H (Negative) Urine Blood Moderate H (Negative) Urine RBC 116 H (0-5) /hpf Urine Mucus Rare H (None) /hpf Assessment and Plan Plan: Assessment: 1. Acute kidney injury secondary to urinary retention. Status post Richardson catheter placement. Renal function better. Creatinine peaked at 4.18 this admission is 1.22 today. No hydronephrosis noted on kidney ultrasound. No proteinuria on UA. 2. Metabolic acidosis secondary to acute kidney injury. Resolved. 3. GI bleed status post EGD and colonoscopy this admission. GI following. Plan: Maintain Flomax. Discontinue Richardson catheter and monitor serial postvoid residuals closely. If has persistent retention, will re-insert Richardson catheter.
[2020-01-04] MEDS: SODIUM CHLORIDE 0.9% 1,000 ML IV SCH (11:52)
--- NOTE | 2020-01-04 12:31 | PN ---
PROGRESS NOTE DATE OF SERVICE: 01/04/2020 Patient is an 84-year-old white male admitted to the hospital with acute GI bleed. He had an EGD, colonoscopy done by me 2 days ago that showed mild gastritis and a small colon polyp and decreased diverticulosis. Patient is doing better. The bleeding has completely stopped. Hemoglobin is stable at 9.6 g/dL. He had elevated BUN and creatinine yesterday. He had a Richardson catheter placed and since the Richardson catheter was removed, BUN and creatinine has normalized. He denies any symptoms. PHYSICAL EXAMINATION: Appears comfortable. Blood pressure 135/72, pulse is 87, temperature 97.9. HEENT: Examination unremarkable. Conjunctivae are pink. Sclerae nonicteric. Oral cavity no lesions. NECK: No JVD or lymph node enlargement.. CHEST: Clear to auscultation. HEART: Regular rate and rhythm. ABDOMEN: Soft, bowel sounds are positive. EXTREMITIES: No pedal edema. SKIN: No rashes. NEUROLOGIC: Alert and oriented x3. No focal deficits. LABS: BUN 12, creatinine 1.2. Rest of the labs are within normal limits. IMPRESSION: 1. Acute gastrointestinal bleed, possibly diverticular in nature. The hemoglobin stable at 9.6 g/dL. No further episodes of bleeding. 2. Obstructive uropathy with elevated BUN and creatinine. He had Richardson catheter placed and subsequently removed and his BUN and creatinine have normalized. RECOMMENDATION: 1. Monitor CBC daily. 2. If the patient is discharged home and follow up in the office in 2 weeks. Thank you for this consultation. MMODL / IJN: [id number] /
--- NOTE | 2020-01-04 14:10 | P.DS ---
Providers Date of admission: 01/02/20 12:03 Attending physician: Evon Quiñonez Consults: 12/31/19 18:08 Consult Physician Routine Consulting Provider: Mitesh Chris Consult Reason/Comments: GI bleed Do you want consulting provider notified?: Yes Consult Physician Routine Consulting Provider: Sanjuana Jones Consult Reason/Comments: GI Bleed Do you want consulting provider notified?: Yes 01/03/20 10:16 Consult Physician Routine Consulting Provider: Stevo Diehl Consult Reason/Comments: elevated creatinine Do you want consulting provider notified?: Yes Primary care physician: Mitesh [facility] Course: Patient is admitted for possible upper GI bleed patient underwent upper GI endoscopy and colonoscopy. Patient had a polypectomy today patient had some red blood stools today. Upper GI endoscopy did show antral gastritis. 01/03/2020 Patient's hemoglobin has gone down but no active bleeding at this time this drop in hemoglobin is secondary to his GI bleed from admission. Patient had normal loose stools. No dark stools or blood in the stools at this time. Patient had only 1 bowel movement today morning. 's creatinine although went up from 0.9-4.1 nephrology will be consulted 01/04/2020 Patient doesn't have any more GI bleed her his creatinine has come down to 1.2. Patient had obstructive uropathy from a prostate disease. Patient's a Richardson catheter was removed if he is able to urinate will check the post well developed residuals and if they're okay patient will be discharged today are as patient is will have a Richardson catheter and will follow-up with urology as an outpatient. Patient's renal failure secondary to urinary retention PHYSICAL EXAMINATION: GENERAL: The patient is alert and oriented x3, not in any acute distress. Well developed, well nourished. HEENT: Pupils are round and equally reacting to light. EOMI. No scleral icterus. No conjunctival pallor. Normocephalic, atraumatic. No pharyngeal erythema. No thyromegaly. CARDIOVASCULAR: S1 and S2 present. No murmurs, rubs, or gallops. PULMONARY: Chest is clear to auscultation, no wheezing or crackles. ABDOMEN: Soft, nontender, nondistended, normoactive bowel sounds. No palpable organomegaly. MUSCULOSKELETAL: No joint swelling or deformity. EXTREMITIES: No cyanosis, clubbing, or pedal edema. NEUROLOGICAL: Gross neurological examination did not reveal any focal deficits. SKIN: No rashes. Assessment and Plan Plan: acute blood loss anemia from probably upper GI bleed: Patient still had some blood in the stools today continue on Protonix gastritis and upper GI endoscopy and a polyp was found which was removed from the ascending colon and transverse colon. There is some left-sided diverticulosis as well., nonsteroidal anti- inflammatories were discontinued. No more GI bleed at this time -asthma without any acute exacerbation patient will be resumed on his home regimen of inhaled steroids inhalational treatments -Hyperlipidemia -Benign prostatic hypertrophy -Acute renal failure secondary to obstructive uropathy. improved serum creatinine and renal failure resolved patient will be discharged today with the above-mentioned plan Patient Condition at Discharge: Stable Plan - Discharge Summary New Discharge Prescriptions: New Omeprazole [PriLOSEC] 40 mg PO AC-BRKFST #30 capsule. Discontinued Naproxen Sodium [Aleve] 220 mg PO HS PRN PRN Reason: Pain No Action Tamsulosin HCl 0.4 mg PO BID Fluticasone/Salmeterol [Advair 100-50 Diskus] 1 puff INHALATION RT-BID Albuterol Sulfate [Proair Hfa] 2 puff INHALATION RT-QID PRN PRN Reason: Shortness Of Breath Montelukast [Singulair] 10 mg PO HS Ferrous Sulfate [Feosol] 325 mg PO BID Simvastatin [Zocor] 20 mg PO HS Discharge Medication List Albuterol Sulfate [Proair Hfa] 2 puff INHALATION RT-QID PRN 04/08/14 [History] Fluticasone/Salmeterol [Advair 100-50 Diskus] 1 puff INHALATION RT-BID 04/08/14 [History] Montelukast [Singulair] 10 mg PO HS 04/08/14 [History] Tamsulosin HCl 0.4 mg PO BID 04/08/14 [History] Ferrous Sulfate [Feosol] 325 mg PO BID 07/31/16 [History] Simvastatin [Zocor] 20 mg PO HS 12/31/19 [History] Omeprazole [PriLOSEC] 40 mg PO AC-BRKFST #30 capsule. 01/03/20 [Rx] Follow up Appointment(s)/Referral(s): Mitesh Chris MD [Primary Care Provider] - 01/13/20 9:45 am () Sanjuana Jones MD [STAFF PHYSICIAN] - 01/06/20 3:00 pm () Patient Instructions/Handouts: Gastrointestinal Bleeding (DC), Melena (GEN) Activity/Diet/Wound Care/Special Instructions: Heart Healthy diet Activity limited until follow up
== END 2020-01-04 15:41 | disposition home or self-care (01) | DRG 378 ==
LOC: EC 16:13 → INTOOBSV 18:10 → 3SCARD 18:10 → OBSVTOIN 01-02 12:03 → 4SSUR 01-03 23:03
PROVIDERS: ADMIT Hospitalist; ATTEND Hospitalist
PROC: 0DBK8ZZ Excision of Ascending Colon, Via Natural or Artificial Opening Endoscopic (ICD-10-PCS; principal; 2020-01-02 08:30)
PROC: 0DBL8ZZ Excision of Transverse Colon, Via Natural or Artificial Opening Endoscopic (ICD-10-PCS; principal; 2020-01-02 08:30)
PROC: 0DB78ZX Excision of Stomach, Pylorus, Via Natural or Artificial Opening Endoscopic, Diagnostic (ICD-10-PCS; principal; 2020-01-02 08:30)
DX: K57.31 Diverticulosis of large intestine without perforation or abscess with bleeding (principal); D62 Acute posthemorrhagic anemia; E87.2 Acidosis; N13.8 Other obstructive and reflux uropathy; N17.9 Acute kidney failure, unspecified; K29.71 Gastritis, unspecified, with bleeding; D86.9 Sarcoidosis, unspecified; E78.5 Hyperlipidemia, unspecified; I10 Essential (primary) hypertension; J45.909 Unspecified asthma, uncomplicated; K44.9 Diaphragmatic hernia without obstruction or gangrene; K63.5 Polyp of colon; K80.20 Calculus of gallbladder without cholecystitis without obstruction; M19.019 Primary osteoarthritis, unspecified shoulder; N28.1 Cyst of kidney, acquired; N40.1 Benign prostatic hyperplasia with lower urinary tract symptoms; Z79.51 Long term (current) use of inhaled steroids; Z79.899 Other long term (current) drug therapy; Z87.19 Personal history of other diseases of the digestive system
CPT/HCPCS: 36415; 43239; 45385; 76770; 80048; 80053; 81001; 82272; 82570; 83605; 83735; 84300; 85025; 85027; 85610; 85730; 86850; 86900; 86901; 87205; 88305; 94640; 96374; 99285

== ENCOUNTER 2020-02-18 18:59 | Emergency (ER) | payer MEDICARE ==
--- NOTE | 2020-02-18 19:47 | ED ---
General Adult HPI - General Chief complaint: Urogenital Stated complaint: Catheter issues Time Seen by Provider: 02/18/20 19:05 Source: patient, RN notes reviewed, old records reviewed Mode of arrival: ambulatory Limitations: no limitations - History of Present Illness Initial comments: This is an 84-year-old male who presents emergency department stating that he has not been to urinate since this morning. Patient states he had a procedure on his prostate last week and today the catheter was removed and since that time he's been unable to urinate. Patient states she has some suprapubic pressure. Patient denies any fever chills. Patient denies any other symptoms at this time. - Related Data Home Medications Medication Instructions Recorded Confirmed Albuterol Sulfate [Proair Hfa] 2 puff INHALATION RT-QID PRN 04/08/14 12/31/19 Fluticasone/Salmeterol [Advair 1 puff INHALATION RT-BID 04/08/14 12/31/19 100-50 Diskus] Montelukast [Singulair] 10 mg PO HS 04/08/14 12/31/19 Tamsulosin HCl 0.4 mg PO BID 04/08/14 12/31/19 Ferrous Sulfate [Feosol] 325 mg PO BID 07/31/16 12/31/19 Simvastatin [Zocor] 20 mg PO HS 12/31/19 12/31/19 Previous Rx's Medication Instructions Recorded Omeprazole [PriLOSEC] 40 mg PO AC-BRKFST #30 capsule. 01/03/20 Allergies Allergy/AdvReac Type Severity Reaction Status Date / Time No Known Allergies Allergy Verified 02/18/20 19:03 Review of Systems ROS Statement: Those systems with pertinent positive or pertinent negative responses have been documented in the HPI. ROS Other: All systems not noted in ROS Statement are negative. Past Medical History Past Medical History: Asthma, Hyperlipidemia, Prostate Disorder Additional Past Medical History / Comment(s): spouse states "was passing blood with stools,hx hemorrhoids",HIATAL HERNIA, SARCOIDOSIS,enlarged prostate, History of Any Multi-Drug Resistant Organisms: None Reported Past Surgical History: Appendectomy, Orthopedic Surgery, Prostate Surgery Additional Past Surgical History / Comment(s): RT ROTATOR CUFF, LYMPH NODE BX Past Anesthesia/Blood Transfusion Reactions: No Reported Reaction Past Psychological History: No Psychological Hx Reported Smoking Status: Never smoker Past Alcohol Use History: None Reported Past Drug Use History: None Reported - Past Family History Mother Family Medical History: No Reported History Father Family Medical History: No Reported History General Exam - General Exam Comments Initial Comments: GENERAL: Patient is well-developed and well-nourished. Patient is nontoxic and well- hydrated and is in no acute distress. ENT: Neck is soft and supple. No significant lymphadenopathy is noted. Oropharynx is clear. Moist mucous membranes. Neck has full range of motion without eliciting any pain. EYES: The sclera were anicteric and conjunctiva were pink and moist. Extraocular movements were intact and pupils were equal round and reactive to light. Eyelids were unremarkable. ABDOMEN: Patient has some suprapubic distention SKIN: Skin is clear with no lesions or rashes and otherwise unremarkable. NEUROLOGIC: Patient is alert and oriented x3. Cranial nerves II through XII are grossly intact. Motor and sensory are also intact. Normal speech, volume and content. Symmetrical smile. MUSCULOSKELETAL: Normal extremities with adequate strength and full range of motion. No lower extremity swelling or edema. No calf tenderness. LYMPHATICS: No significant lymphadenopathy is noted PSYCHIATRIC: Normal psychiatric evaluation. Limitations: no limitations Course Vital Signs 02/18/20 19:01 Temperature 97.4 F L Pulse Rate 105 H Respiratory 18 Rate Blood Pressure 135/58 O2 Sat by Pulse 97 Oximetry Medical Decision Making - Medical Decision Making A Richardson catheter was placed patient 600+ cc of urine out. Patient felt much better. Disposition Clinical Impression: Urinary retention Disposition: HOME SELF-CARE Condition: Good Instructions (If sedation given, give patient instructions): Urinary Retention in Men (ED) Is patient prescribed a controlled substance at d/c from ED?: No Referrals: Mitesh Chris MD [Primary Care Provider] - 1-2 days Time of Disposition: 20:28
[2020-02-18 20:53] VITALS: BP 128/59; PULSE 89; RESP 17; TEMP 97.6
== END 2020-02-18 20:42 | disposition home or self-care (01) ==
LOC: EC 18:59
DX: R33.9 Retention of urine, unspecified (principal); J45.909 Unspecified asthma, uncomplicated; E78.5 Hyperlipidemia, unspecified; Z79.51 Long term (current) use of inhaled steroids; Z79.899 Other long term (current) drug therapy
CPT/HCPCS: 51702; 99284

== ENCOUNTER 2020-03-05 16:52 | Observation (INO) | payer MEDICARE ==
[2020-03-05] MEDS ORDERED: SODIUM CHLORIDE 0.9% 500 ML 500 ML IV ONE (17:26)
--- NOTE | 2020-03-05 17:37 | ED ---
Male Urogenital HPI <Edson Lamar - Last Filed: 03/05/20 19:28> - General Source: patient Mode of arrival: wheelchair Limitations: no limitations <Claudine Church - Last Filed: 03/05/20 20:18> - General Chief complaint: Urogenital Stated complaint: catheter issues Time Seen by Provider: 03/05/20 17:22 - History of Present Illness Initial comments: 84-year-old male patient presents to the emergency department today for evaluation of urinary retention and suprapubic discomfort. Patient states that this started early this morning and has persisted throughout the afternoon. States he has been passing small amounts of urine containing blood for the last few hours. Patient states her last couple of hours he has been feeling dizzy. Patient did have a croup at the end of January, states that he had his Richardson catheter removed about a week ago. Patient states he was urinating well up until today. Does not take any blood thinning medications. Denies any fever or chills. Denies any flank pain. Patient denies any recent rash, cough, shortness of breath, chest pain, nausea, vomiting, diarrhea, constipation, numbness, tingling, headache, visual changes, or any other complaints. (Claudine Church) - Related Data Home Medications Medication Instructions Recorded Confirmed Albuterol Sulfate [Proair Hfa] 2 puff INHALATION RT-QID PRN 04/08/14 12/31/19 Fluticasone/Salmeterol [Advair 1 puff INHALATION RT-BID 04/08/14 12/31/19 100-50 Diskus] Montelukast [Singulair] 10 mg PO HS 04/08/14 12/31/19 Tamsulosin HCl 0.4 mg PO BID 04/08/14 12/31/19 Ferrous Sulfate [Feosol] 325 mg PO BID 07/31/16 12/31/19 Simvastatin [Zocor] 20 mg PO HS 12/31/19 12/31/19 Previous Rx's Medication Instructions Recorded Omeprazole [PriLOSEC] 40 mg PO AC-BRKFST #30 capsule. 01/03/20 Allergies Allergy/AdvReac Type Severity Reaction Status Date / Time No Known Allergies Allergy Verified 03/05/20 16:58 Review of Systems ROS Other: All systems not noted in ROS Statement are negative. <Edson Lamar - Last Filed: 03/05/20 19:28> ROS Other: All systems not noted in ROS Statement are negative. <Claudine Church - Last Filed: 03/05/20 20:18> ROS Statement: Those systems with pertinent positive or pertinent negative responses have been documented in the HPI. Past Medical History Past Medical History: Asthma, Hyperlipidemia, Prostate Disorder Additional Past Medical History / Comment(s): spouse states "was passing blood with stools,hx hemorrhoids",HIATAL HERNIA, SARCOIDOSIS,enlarged prostate, History of Any Multi-Drug Resistant Organisms: None Reported Past Surgical History: Appendectomy, Orthopedic Surgery, Prostate Surgery Additional Past Surgical History / Comment(s): RT ROTATOR CUFF, LYMPH NODE BX Past Anesthesia/Blood Transfusion Reactions: No Reported Reaction Past Psychological History: No Psychological Hx Reported Smoking Status: Never smoker Past Alcohol Use History: None Reported Past Drug Use History: None Reported - Past Family History Mother Family Medical History: No Reported History Father Family Medical History: No Reported History <Claudine Church - Last Filed: 03/05/20 20:18> General Exam Limitations: no limitations General appearance: alert, in no apparent distress, other (This is a well- developed, well-nourished elderly male patient in no acute distress. Vital signs upon presentation are temperature 98.2F, pulse 66, respirations 18, blood pressure 78/51, pulse ox 98% on room air.) Eye exam: Present: normal appearance, PERRL, EOMI. Absent: scleral icterus, conjunctival injection, periorbital swelling Respiratory exam: Present: normal lung sounds bilaterally. Absent: respiratory distress, wheezes, rales, rhonchi, stridor Cardiovascular Exam: Present: regular rate, normal rhythm, normal heart sounds. Absent: systolic murmur, diastolic murmur, rubs, gallop, clicks GI/Abdominal exam: Present: soft, tenderness (Suprapubic), normal bowel sounds. Absent: distended, guarding, rebound, rigid Back exam: Present: normal inspection. Absent: CVA tenderness (R), CVA tenderness (L) Neurological exam: Present: alert, oriented X3, CN II-XII intact Psychiatric exam: Present: normal affect, normal mood Skin exam: Present: warm, dry, intact, normal color. Absent: rash <Claudine Church - Last Filed: 03/05/20 20:18> Course <Edson Lamar - Last Filed: 03/05/20 19:28> Vital Signs 03/05/20 03/05/20 03/05/20 16:53 17:08 17:45 Temperature 98.2 F Pulse Rate 66 101 H Pulse Rate [ 96 Sitting Pulse Oximetery] Pulse Rate [ 99 Standing Pulse Oximetery] Pulse Rate [ 104 H Supine Pulse Oximetery] Respiratory 18 18 Rate Blood Pressure 78/51 117/71 Blood Pressure 96/65 [Right Arm Sitting] Blood Pressure 101/56 [Right Arm Standing] Blood Pressure 110/64 [Right Arm Supine] O2 Sat by Pulse 98 99 Oximetry - Reevaluation(s) Reevaluation #1: 03/05/20 19:28 [facility] supervision: I pursued evaluation this patient patient did demonstrate evidence of urinary retention. He does have an elevated white blood cell count he does have a left shift he does have evidence of a lot of blood in his urine. Unclear whether this is infectious etiology he did have a hypotensive episode. Patient will be admitted [facility] (Edson Lamar) Medical Decision Making - Lab Data Result diagrams: 03/05/20 17:40 03/05/20 17:40 <Edson Lamar - Last Filed: 03/05/20 19:28> - Lab Data Result diagrams: 03/05/20 17:40 03/05/20 17:40 - EKG Data -: EKG Interpreted by Pa <Claudine Church - Last Filed: 03/05/20 20:18> - Medical Decision Making 84-year-old male patient who underwent transurethral removal of the prostate at the end of January presents to the emergency department today for evaluation of urinary retention and dizziness. Physical examination did reveal suprapubic discomfort. On arrival blood pressure was decreased in the 70s systolic. Did have a mild orthostatic reaction with orthostatic pressures. Labs are drawn, he is given IV fluids, Richardson catheter was inserted. Patient did have presence of hematuria. Labs reviewed and did reveal elevated white blood cell count is 17,000. Urinalysis showed greater than 182 red cells and white cells. This was sent for culture. Patient is afebrile. With leukocytosis as well as findings and the urine there is concern for urinary tract infections we'll start Rocephin. Labs also revealed an elevated blood sugar, patient has no current diagnosis of diabetes. We will admit to the hospital for further evaluation and monitoring of his blood pressures as well as IV antibiotics for possible UTI. Patient is agreeable with this plan. (Claudine Church) - Lab Data Lab Results 03/05/20 03/05/20 03/05/20 Range/Units 17:40 17:40 17:40 WBC 17.0 H (3.8-10.6) k/uL RBC 4.69 (4.30-5.90) m/uL Hgb 13.1 D (13.0-17.5) gm/dL Hct 43.0 (39.0-53.0) % MCV 91.8 (80.0-100.0) fL MCH 28.0 (25.0-35.0) pg MCHC 30.5 L (31.0-37.0) g/dL RDW 14.7 (11.5-15.5) % Plt Count 330 D (150-450) k/uL Neutrophils % 87 % Lymphocytes % 8 % Monocytes % 4 % Eosinophils % 1 % Basophils % 0 % Neutrophils # 14.8 H (1.3-7.7) k/uL Lymphocytes # 1.3 (1.0-4.8) k/uL Monocytes # 0.6 (0-1.0) k/uL Eosinophils # 0.2 (0-0.7) k/uL Basophils # 0.1 (0-0.2) k/uL Hypochromasia Slight PT 10.6 (9.0-12.0) sec INR 1.0 (<1.2) APTT 21.6 L (22.0-30.0) sec Sodium 135 L (137-145) mmol/L Potassium 4.2 (3.5-5.1) mmol/L Chloride 104 (98-107) mmol/L Carbon Dioxide 21 L (22-30) mmol/L Anion Gap 10 mmol/L BUN 13 (9-20) mg/dL Creatinine 0.88 (0.66-1.25) mg/dL Est GFR (CKD-EPI)AfAm >90 (>60 ml/min/1.73 sqM) Est GFR (CKD-EPI)NonAf 80 (>60 ml/min/1.73 sqM) Glucose 196 H (74-99) mg/dL Calcium 8.9 (8.4-10.2) mg/dL Total Bilirubin 0.4 (0.2-1.3) mg/dL AST 22 (17-59) U/L ALT 15 (4-49) U/L Alkaline Phosphatase 90 (38-126) U/L Total Protein 6.8 (6.3-8.2) g/dL Albumin 3.6 (3.5-5.0) g/dL Urine Color Urine Appearance (Clear) Urine RBC (0-5) /hpf Urine WBC (0-5) /hpf Blood Type Blood Type Recheck Bld Type Recheck Status Antibody Screen Spec Expiration Date 03/05/20 03/05/20 Range/Units 17:40 19:00 WBC (3.8-10.6) k/uL RBC (4.30-5.90) m/uL Hgb (13.0-17.5) gm/dL Hct (39.0-53.0) % MCV (80.0-100.0) fL MCH (25.0-35.0) pg MCHC (31.0-37.0) g/dL RDW (11.5-15.5) % Plt Count (150-450) k/uL Neutrophils % % Lymphocytes % % Monocytes % % Eosinophils % % Basophils % % Neutrophils # (1.3-7.7) k/uL Lymphocytes # (1.0-4.8) k/uL Monocytes # (0-1.0) k/uL Eosinophils # (0-0.7) k/uL Basophils # (0-0.2) k/uL Hypochromasia PT (9.0-12.0) sec INR (<1.2) APTT (22.0-30.0) sec Sodium (137-145) mmol/L Potassium (3.5-5.1) mmol/L Chloride (98-107) mmol/L Carbon Dioxide (22-30) mmol/L Anion Gap mmol/L BUN (9-20) mg/dL Creatinine (0.66-1.25) mg/dL Est GFR (CKD-EPI)AfAm (>60 ml/min/1.73 sqM) Est GFR (CKD-EPI)NonAf (>60 ml/min/1.73 sqM) Glucose (74-99) mg/dL Calcium (8.4-10.2) mg/dL Total Bilirubin (0.2-1.3) mg/dL AST (17-59) U/L ALT (4-49) U/L Alkaline Phosphatase (38-126) U/L Total Protein (6.3-8.2) g/dL Albumin (3.5-5.0) g/dL Urine Color Red Urine Appearance Bloody (Clear) Urine RBC >182 H (0-5) /hpf Urine WBC >182 H (0-5) /hpf Blood Type A Negative Blood Type Recheck A Neg Bld Type Recheck Status No Antibody Screen NEGATIVE Spec Expiration Date 03/08/2020 - 2340 - EKG Data EKG Comments: EKG obtained at 1745 shows sinus tachycardia with occasional premature ventricular complexes. Ventricular is rate 104, WA interval 148, QRS duration 84, QT 378, QTC 497. No evidence of ST elevation or depression. (Claudine Church) Disposition <Edson Lamar - Last Filed: 03/05/20 19:28> Decision to Admit Reason: Admit from EC Decision Date: 03/05/20 Decision Time: 19:35 <Claudine Church - Last Filed: 03/05/20 20:18> Clinical Impression: Hematuria, Urinary retention, Hypotension, Hyperglycemia Disposition: ADMITTED IP TO THIS [facility] Condition: Serious
[2020-03-05 17:57] LABS: Basophils # (A) 0.1 k/uL (0-0.2); Basophils % (A) 0 %; Eosinophils # (A) 0.2 k/uL (0-0.7); Eosinophils % (A) 1 %; Hypochromasia Slight; Lymphocytes # (A) 1.3 k/uL (1.0-4.8); Lymphocytes % (A) 8 %; MCHC 30.5 g/dL (31.0-37.0); MCV 91.8 fL (80.0-100.0); Mean Platelet Volume 7.8; Monocytes # (A) 0.6 k/uL (0-1.0); Monocytes % (A) 4 %; Neutrophils # (A) 14.8 k/uL (1.3-7.7); Neutrophils % (A) 87 %; RBC 4.69 m/uL (4.30-5.90); RDW 14.7 % (11.5-15.5)
[2020-03-05 18:02] LABS: HGB 13.1 gm/dL (13.0-17.5); Platelet Count 330 k/uL (150-450)
[2020-03-05 18:13] LABS: Prothrombin Time 10.6 sec (9.0-12.0)
[2020-03-05 18:16] LABS: ALT 15 U/L (4-49); AST 22 U/L (17-59); African American GFR (CKD) >90 (>60 ml/min/1.73 sqM); Albumin 3.6 g/dL (3.5-5.0); Alkaline Phosphatase 90 U/L (38-126); Anion Gap 10 mmol/L; Blood Urea Nitrogen 13 mg/dL (9-20); Calcium 8.9 mg/dL (8.4-10.2); Carbon Dioxide 21 mmol/L (22-30); Chloride 104 mmol/L (98-107); Glucose 196 mg/dL (74-99); Non-African American GFR(CKD) 80 (>60 ml/min/1.73 sqM); Potassium 4.2 mmol/L (3.5-5.1); Sodium 135 mmol/L (137-145); Total Bilirubin 0.4 mg/dL (0.2-1.3); Total Protein 6.8 g/dL (6.3-8.2)
[2020-03-05 18:46] LABS: Partial Thromboplastin Time 21.6 sec (22.0-30.0)
[2020-03-05 19:21] LABS: RBC,Urine >182 /hpf (0-5); WBC,Urine >182 /hpf (0-5)
[2020-03-05 19:22] LABS: Appearance,Urine Bloody (Clear); Color,Urine Red
[2020-03-05] MEDS ORDERED: NALOXONE 0.4 MG/ML 1 ML VIAL IV PRN (19:32)
[2020-03-05] MEDS ORDERED: ACETAMINOPHEN TAB 325 MG TAB PO PRN (19:32)
[2020-03-05] MEDS: SODIUM CHLORIDE 0.9% 1,000 ML IV SCH (20:13)
[2020-03-05 21:36] LABS: Glucose,Whole Blood 145 mg/dL (75-99)
[2020-03-05] MEDS ORDERED: ALBUTEROL NEBULIZED 2.5 MG/3 ML INHALATION PRN (21:36)
[2020-03-05] MEDS ORDERED: Acetaminophen-Codeine 300-30mg TAB PO PRN (21:36)
[2020-03-05] MEDS ORDERED: FINASTERIDE 5 MG TAB PO SCH (22:00)
[2020-03-05] MEDS: FERROUS SULFATE 325 MG TAB PO SCH (22:09)
[2020-03-05] MEDS: ATORVASTATIN 10 MG TAB PO SCH (22:09)
[2020-03-05] MEDS: TAMSULOSIN 0.4 MG CAP.ER.24H PO SCH (22:09)
[2020-03-06 07:04] LABS: Glucose,Whole Blood 136 mg/dL (75-99)
[2020-03-06 07:17] LABS: Basophils % (A) 0 %; Eosinophils # (A) 0.1 k/uL (0-0.7); Eosinophils % (A) 1 %; HGB 11.4 gm/dL (13.0-17.5); Hypochromasia Slight; Lymphocytes # (A) 1.5 k/uL (1.0-4.8); Lymphocytes % (A) 17 %; MCH 28.7 pg (25.0-35.0); MCHC 31.6 g/dL (31.0-37.0); MCV 90.9 fL (80.0-100.0); Mean Platelet Volume 7.3; Monocytes # (A) 0.4 k/uL (0-1.0); Monocytes % (A) 5 %; Neutrophils # (A) 6.5 k/uL (1.3-7.7); Neutrophils % (A) 75 %; Platelet Count 291 k/uL (150-450); RBC 3.95 m/uL (4.30-5.90); RDW 14.2 % (11.5-15.5); WBC 8.6 k/uL (3.8-10.6)
[2020-03-06] MEDS: TAMSULOSIN 0.4 MG CAP.ER.24H PO SCH ×2 (07:22→20:33)
[2020-03-06] MEDS: FINASTERIDE 5 MG TAB PO SCH (07:22)
[2020-03-06] MEDS: FERROUS SULFATE 325 MG TAB PO SCH ×2 (07:22→20:33)
[2020-03-06] MEDS: SYMBICORT 80-4.5 MCG INHALER INHALATION SCH ×2 (07:25→19:11)
[2020-03-06 08:47] LABS: African American GFR (CKD) >90 (>60 ml/min/1.73 sqM); Anion Gap 8 mmol/L; Blood Urea Nitrogen 12 mg/dL (9-20); Calcium 7.9 mg/dL (8.4-10.2); Carbon Dioxide 21 mmol/L (22-30); Chloride 106 mmol/L (98-107); Glucose 127 mg/dL (74-99); Non-African American GFR(CKD) 82 (>60 ml/min/1.73 sqM); Potassium 4.2 mmol/L (3.5-5.1); Sodium 135 mmol/L (137-145)
[2020-03-06] MEDS: SODIUM CHLORIDE 0.9% 1,000 ML IV SCH ×2 (08:50→20:33)
--- NOTE | 2020-03-06 10:02 | P.GSCN ---
History of Present Illness Consult date: 03/06/20 Reason for Consult: gross hematuria and urinary retention History of present illness: Mr Hernandez is an 84-year-old male admitted to the hospital with urinary retention and gross hematuria. c. He underwent TURP in January for urinary retention. He developed urinary retention post TURP required a quesada placement on 02/17. catheter was subsequently removed, and he was able to void spontaneously. He indicated for the past week he is been having weak stream and dribbling with urination. He also noticed gross hematuria with clots that past 1-2 days.In the ED he was complaing of dizzness which resolved since hospital admission. Catheter was placed in the ED overnight and his PVR was 380 mL. Overnight patient catheter was clogged and he required multiple irrigation since. . Review of Systems - Constitutional Denies fever, Denies weight loss - Cardiovascular Denies chest pain, Denies shortness of breath - Respiratory Denies cough, Denies 7 - Gastrointestinal Reports abdominal pain, Denies nausea, Denies vomiting - Genitourinary Reports hematuria, Reports urinary retention, Denies dysuria - Integumentary Denies rash, Denies unusual bruising - Neurological Denies headaches, Denies syncope Past Medical History Past Medical History: Asthma, Hyperlipidemia, Prostate Disorder Additional Past Medical History / Comment(s): spouse states "was passing blood with stools,hx hemorrhoids",HIATAL HERNIA, SARCOIDOSIS,enlarged prostate, History of Any Multi-Drug Resistant Organisms: None Reported Past Surgical History: Appendectomy, Orthopedic Surgery, Prostate Surgery Additional Past Surgical History / Comment(s): RT ROTATOR CUFF, LYMPH NODE BX Past Anesthesia/Blood Transfusion Reactions: No Reported Reaction Past Psychological History: No Psychological Hx Reported Smoking Status: Never smoker Past Alcohol Use History: None Reported Past Drug Use History: None Reported - Past Family History Mother Family Medical History: No Reported History Father Family Medical History: No Reported History Medications and Allergies Home Medications Medication Instructions Recorded Confirmed Type Albuterol Sulfate [Proair Hfa] 2 puff INHALATION RT-QID PRN 04/08/14 03/05/20 History Fluticasone/Salmeterol [Advair 1 puff INHALATION RT-BID 04/08/14 03/05/20 History 100-50 Diskus] Tamsulosin HCl 0.4 mg PO BID 04/08/14 03/05/20 History Ferrous Sulfate [Feosol] 325 mg PO BID 07/31/16 03/05/20 History Simvastatin [Zocor] 20 mg PO HS 12/31/19 03/05/20 History Acetaminophen-Codeine 300-30mg 1 tab PO Q3H PRN 03/05/20 03/05/20 History [Tylenol w/codeine #3] Finasteride [Proscar] 5 mg PO DAILY 03/05/20 03/05/20 History Allergies Allergy/AdvReac Type Severity Reaction Status Date / Time No Known Allergies Allergy Verified 03/05/20 20:31 Surgical - Exam Vital Signs Temp Pulse Resp BP Pulse Ox 98.2 F 66 18 78/51 98 03/05/20 16:53 03/05/20 16:53 03/05/20 16:53 03/05/20 16:53 03/05/20 16:53 - General well developed, well nourished, no distress - Eyes normal ocular movement - Respiratory normal expansion, normal respiratory effort - Abdomen Abdomen: soft, tender (suprapubic), no distended - Genitourinary uncircumcised phallus quesada with dark red urine testicles non-tender - Psychiatric oriented to time, oriented to person, oriented to place, speech is normal Results - Labs 03/06/20 06:09 03/06/20 06:09 Abnormal Lab Results - Last 24 Hours (Table) 03/05/20 03/05/20 03/05/20 Range/Units 17:40 17:40 17:40 WBC 17.0 H (3.8-10.6) k/uL RBC (4.30-5.90) m/uL Hgb (13.0-17.5) gm/dL Hct (39.0-53.0) % MCHC 30.5 L (31.0-37.0) g/dL Neutrophils # 14.8 H (1.3-7.7) k/uL APTT 21.6 L (22.0-30.0) sec Sodium 135 L (137-145) mmol/L Carbon Dioxide 21 L (22-30) mmol/L Glucose 196 H (74-99) mg/dL POC Glucose (mg/dL) (75-99) mg/dL Calcium (8.4-10.2) mg/dL Urine RBC (0-5) /hpf Urine WBC (0-5) /hpf 03/05/20 03/05/20 03/06/20 Range/Units 19:00 21:31 06:09 WBC (3.8-10.6) k/uL RBC 3.95 L (4.30-5.90) m/uL Hgb 11.4 L (13.0-17.5) gm/dL Hct 36.0 L (39.0-53.0) % MCHC (31.0-37.0) g/dL Neutrophils # (1.3-7.7) k/uL APTT (22.0-30.0) sec Sodium (137-145) mmol/L Carbon Dioxide (22-30) mmol/L Glucose (74-99) mg/dL POC Glucose (mg/dL) 145 H (75-99) mg/dL Calcium (8.4-10.2) mg/dL Urine RBC >182 H (0-5) /hpf Urine WBC >182 H (0-5) /hpf 03/06/20 03/06/20 Range/Units 06:09 07:03 WBC (3.8-10.6) k/uL RBC (4.30-5.90) m/uL Hgb (13.0-17.5) gm/dL Hct (39.0-53.0) % MCHC (31.0-37.0) g/dL Neutrophils # (1.3-7.7) k/uL APTT (22.0-30.0) sec Sodium 135 L (137-145) mmol/L Carbon Dioxide 21 L (22-30) mmol/L Glucose 127 H (74-99) mg/dL POC Glucose (mg/dL) 136 H (75-99) mg/dL Calcium 7.9 L (8.4-10.2) mg/dL Urine RBC (0-5) /hpf Urine WBC (0-5) /hpf Microbiology - Last 24 Hours (Table) 03/05/20 19:00 Urine Culture - Preliminary Urine,Voided Diabetes panel 03/05/20 03/06/20 Range/Units 17:40 06:09 Sodium 135 L 135 L (137-145) mmol/L Potassium 4.2 4.2 (3.5-5.1) mmol/L Chloride 104 106 (98-107) mmol/L Carbon Dioxide 21 L 21 L (22-30) mmol/L BUN 13 12 (9-20) mg/dL Creatinine 0.88 0.82 (0.66-1.25) mg/dL Glucose 196 H 127 H (74-99) mg/dL Calcium 8.9 7.9 L (8.4-10.2) mg/dL AST 22 (17-59) U/L ALT 15 (4-49) U/L Alkaline Phosphatase 90 (38-126) U/L Total Protein 6.8 (6.3-8.2) g/dL Albumin 3.6 (3.5-5.0) g/dL Calcium panel 03/05/20 03/06/20 Range/Units 17:40 06:09 Calcium 8.9 7.9 L (8.4-10.2) mg/dL Albumin 3.6 (3.5-5.0) g/dL Pituitary panel 03/05/20 03/06/20 Range/Units 17:40 06:09 Sodium 135 L 135 L (137-145) mmol/L Potassium 4.2 4.2 (3.5-5.1) mmol/L Chloride 104 106 (98-107) mmol/L Carbon Dioxide 21 L 21 L (22-30) mmol/L BUN 13 12 (9-20) mg/dL Creatinine 0.88 0.82 (0.66-1.25) mg/dL Glucose 196 H 127 H (74-99) mg/dL Calcium 8.9 7.9 L (8.4-10.2) mg/dL Adrenal panel 03/05/20 03/06/20 Range/Units 17:40 06:09 Sodium 135 L 135 L (137-145) mmol/L Potassium 4.2 4.2 (3.5-5.1) mmol/L Chloride 104 106 (98-107) mmol/L Carbon Dioxide 21 L 21 L (22-30) mmol/L BUN 13 12 (9-20) mg/dL Creatinine 0.88 0.82 (0.66-1.25) mg/dL Glucose 196 H 127 H (74-99) mg/dL Calcium 8.9 7.9 L (8.4-10.2) mg/dL Total Bilirubin 0.4 (0.2-1.3) mg/dL AST 22 (17-59) U/L ALT 15 (4-49) U/L Alkaline Phosphatase 90 (38-126) U/L Total Protein 6.8 (6.3-8.2) g/dL Albumin 3.6 (3.5-5.0) g/dL Assessment and Plan Assessment: 84 yo male S/P TURP in january by Dr Covarrubias, He presents to the hospital with urinary retention and gross hematuria. Plan: -catheter was upsized to 22 Fr with 30 cc in balloon. catheter irrigating with minimal clots. -Irrigate quesada catheter q 4 hours -Repeat CBC tonight -f/u on urine culture
[2020-03-06 11:49] LABS: Glucose,Whole Blood 113 mg/dL (75-99)
[2020-03-06 12:18] LABS: Basophils % (A) 0 %; Eosinophils # (A) 0.1 k/uL (0-0.7); Eosinophils % (A) 2 %; HCT 33.9 % (39.0-53.0); HGB 10.9 gm/dL (13.0-17.5); Hypochromasia Slight; Lymphocytes # (A) 1.4 k/uL (1.0-4.8); Lymphocytes % (A) 19 %; MCH 29.1 pg (25.0-35.0); MCHC 32.2 g/dL (31.0-37.0); MCV 90.3 fL (80.0-100.0); Mean Platelet Volume 7.4; Monocytes # (A) 0.3 k/uL (0-1.0); Monocytes % (A) 4 %; Neutrophils # (A) 5.3 k/uL (1.3-7.7); Neutrophils % (A) 74 %; Platelet Count 289 k/uL (150-450); RBC 3.75 m/uL (4.30-5.90); RDW 14.2 % (11.5-15.5); WBC 7.3 k/uL (3.8-10.6)
[2020-03-06 17:35] LABS: Glucose,Whole Blood 120 mg/dL (75-99)
[2020-03-06 19:53] LABS: Glucose,Whole Blood 153 mg/dL (75-99)
[2020-03-06 19:56] VITALS: RESP 18
[2020-03-06] MEDS: ATORVASTATIN 10 MG TAB PO SCH (20:33)
--- NOTE | 2020-03-06 22:02 | P.HPIM ---
History of Present Illness H&P Date: 03/06/20 Chief Complaint: Urinary Retention Patient is a 82-year-old male with a known history of asthma, hyperlipidemia, BPH status post TURP in January 2020 for urinary retention presents to ER with complaints of suprapubic discomfort and urinary retention. Patient started having symptoms yesterday morning and persistent throughout the afternoon. Patient is also complaining passing small blood clots as well. Patient has been feeling dizzy and came to ER. Patient had TURP in January and subsequently requiring Richardson catheter for urinary retention and was removed about a week ago. Patient has been urinating well until after the date of admission. Otherwise patient denied any complaints of fever or chills. Denied any flank pain or abdominal pain. Mainly suprapubic discomfort. No chest pain or shortness of breath. No fever no chills. No nausea vomiting or diarrhea. Denied any headache or dizziness or lightheadedness. No leg weakness. Patient was Richardson catheter in the ER. Patient was having blood-tinged urine which is clearing up now. Patient was irrigated overnight. Laboratory data showed WBC 17.0, hemoglobin 13.1 down to 11.4 Sodium 135, potassium 4.2, chloride 104, bicarb 21, blood sugar 196 Urinalysis showed bloody with greater than 182 RBCs and greater than 182 WBCs. COVID-19 negative. EKG showed sinus tachycardia with PACs. Review of Systems Constitutional: Patient denies any fever or chills . No generalized weakness or weight loss. Abdomen: Patient denied nausea vomiting and diarrhea and abdominal pain. Cardiovascular: Patient denies any chest pain or short of breath no palpitations. Respiratory: patient denied any cough is from production. No shortness of breath Neurologic: Patient denied any numbness or tingling. Musculoskeletal: Patient denies any complaints of joint swelling or deformity. Skin: Negative Psychiatric: Negative Endocrine: No heat or cold intolerance. No recent weight gain. Genitourinary: No dysuria . + hematuria. All other 14 point ROS negative except the above Past Medical History Past Medical History: Asthma, Hyperlipidemia, Prostate Disorder Additional Past Medical History / Comment(s): spouse states "was passing blood with stools,hx hemorrhoids",HIATAL HERNIA, SARCOIDOSIS,enlarged prostate, History of Any Multi-Drug Resistant Organisms: None Reported Past Surgical History: Appendectomy, Orthopedic Surgery, Prostate Surgery Additional Past Surgical History / Comment(s): RT ROTATOR CUFF, LYMPH NODE BX Past Anesthesia/Blood Transfusion Reactions: No Reported Reaction Past Psychological History: No Psychological Hx Reported Smoking Status: Never smoker Past Alcohol Use History: None Reported Past Drug Use History: None Reported - Past Family History Mother Family Medical History: No Reported History Father Family Medical History: No Reported History Medications and Allergies Home Medications Medication Instructions Recorded Confirmed Type Albuterol Sulfate [Proair Hfa] 2 puff INHALATION RT-QID PRN 04/08/14 03/05/20 History Fluticasone/Salmeterol [Advair 1 puff INHALATION RT-BID 04/08/14 03/05/20 History 100-50 Diskus] Tamsulosin HCl 0.4 mg PO BID 04/08/14 03/05/20 History Ferrous Sulfate [Feosol] 325 mg PO BID 07/31/16 03/05/20 History Simvastatin [Zocor] 20 mg PO HS 12/31/19 03/05/20 History Acetaminophen-Codeine 300-30mg 1 tab PO Q3H PRN 03/05/20 03/05/20 History [Tylenol w/codeine #3] Finasteride [Proscar] 5 mg PO DAILY 03/05/20 03/05/20 History Allergies Allergy/AdvReac Type Severity Reaction Status Date / Time No Known Allergies Allergy Verified 03/05/20 20:31 Physical Exam Vitals: Vital Signs Temp Pulse Pulse Pulse Pulse Resp BP 03/06/20 04:35 98 F 83 17 03/05/20 21:26 97.9 F 98 20 03/05/20 20:21 98.8 F 93 17 101/66 03/05/20 17:45 96 99 104 H 03/05/20 17:08 101 H 18 117/71 03/05/20 16:53 98.2 F 66 18 78/51 BP BP BP Pulse Ox 03/06/20 04:35 100/60 98 03/05/20 21:26 123/76 96 03/05/20 20:21 98 03/05/20 17:45 96/65 101/56 110/64 03/05/20 17:08 99 03/05/20 16:53 98 Intake and Output 03/05/20 03/06/20 03/06/20 22:59 06:59 14:59 Intake Total 50 Output Total 389 100 Balance -339 -100 Intake: Intake, IV Titration 50 Amount cefTRIAXone 1 gm In 50 Sodium Chloride 0.9% 50 ml @ 100 mls/hr IVPB ONCE ONE Rx#:[id number] Output: Urine 100 Post Void Residual 389 Other: Voiding Method Indwelling Catheter Indwelling Catheter # Voids 1 Weight 78.018 kg PHYSICAL EXAMINATION: Patient is lying in the bed comfortably, no acute distress, awake alert and oriented.. HEENT: Normocephalic. Neck is supple. Pupils reactive. Nostrils clear. Oral cavity is moist. Ears reveal no drainage. Neck reveals no JVD, carotid bruits, or thyromegaly. CHEST EXAMINATION: Trachea is central. Symmetrical expansion. bilaleral fine crackes. no wheezing. CARDIAC: Normal S1, S2 with no gallops. No murmurs ABDOMEN: Soft. Bowel sounds normal. No organomegaly. No abdominal bruits. Extremities: reveal no edema. No clubbing or cyanosis. Neurologically awake, alert, oriented x3 with well-coordinated movements. No focal deficits noted Skin: No rash or skin lesions. Psychiatric: Coperative. Nonsuicidal Musculoskeletal: No joint swelling or deformity. Normal range of motion. Results CBC & Chem 7: 03/06/20 11:55 03/06/20 06:09 Labs: Abnormal Lab Results - Last 24 Hours (Table) 03/05/20 03/05/20 03/05/20 Range/Units 17:40 17:40 17:40 WBC 17.0 H (3.8-10.6) k/uL RBC (4.30-5.90) m/uL Hgb (13.0-17.5) gm/dL Hct (39.0-53.0) % MCHC 30.5 L (31.0-37.0) g/dL Neutrophils # 14.8 H (1.3-7.7) k/uL APTT 21.6 L (22.0-30.0) sec Sodium 135 L (137-145) mmol/L Carbon Dioxide 21 L (22-30) mmol/L Glucose 196 H (74-99) mg/dL POC Glucose (mg/dL) (75-99) mg/dL Calcium (8.4-10.2) mg/dL Urine RBC (0-5) /hpf Urine WBC (0-5) /hpf 03/05/20 03/05/20 03/06/20 Range/Units 19:00 21:31 06:09 WBC (3.8-10.6) k/uL RBC 3.95 L (4.30-5.90) m/uL Hgb 11.4 L (13.0-17.5) gm/dL Hct 36.0 L (39.0-53.0) % MCHC (31.0-37.0) g/dL Neutrophils # (1.3-7.7) k/uL APTT (22.0-30.0) sec Sodium (137-145) mmol/L Carbon Dioxide (22-30) mmol/L Glucose (74-99) mg/dL POC Glucose (mg/dL) 145 H (75-99) mg/dL Calcium (8.4-10.2) mg/dL Urine RBC >182 H (0-5) /hpf Urine WBC >182 H (0-5) /hpf 03/06/20 03/06/20 Range/Units 06:09 07:03 WBC (3.8-10.6) k/uL RBC (4.30-5.90) m/uL Hgb (13.0-17.5) gm/dL Hct (39.0-53.0) % MCHC (31.0-37.0) g/dL Neutrophils # (1.3-7.7) k/uL APTT (22.0-30.0) sec Sodium 135 L (137-145) mmol/L Carbon Dioxide 21 L (22-30) mmol/L Glucose 127 H (74-99) mg/dL POC Glucose (mg/dL) 136 H (75-99) mg/dL Calcium 7.9 L (8.4-10.2) mg/dL Urine RBC (0-5) /hpf Urine WBC (0-5) /hpf Microbiology - Last 24 Hours (Table) 03/05/20 19:00 Urine Culture - Preliminary Urine,Voided Thrombosis Risk Factor Assmnt - DVT/VTE Prophylaxis DVT/VTE Prophylaxis: Mechanical Prophylaxis ordered - Choose All That Apply Any of the Below Risk Factors Present?: No Other Risk Factors: Yes Each Risk Factor Represents 3 Points: Age 75 years or older Other congenital or acquired thrombophilia - If yes, enter type in comment: No Thrombosis Risk Factor Assessment Total Risk Factor Score: 3 Thrombosis Risk Factor Assessment Level: Moderate Risk Assessment and Plan Assessment: Acute urinary retention status post Richardson catheter placement. Hematuria Acute urinary tract infection Acute blood loss anemia second hematuria Recent TURP followed by Richardson catheter placement and removal 1 week ago Asthma stable Hyperlipidemia DVT prophylaxis with SCDs Plan: Patient is being continued on IV hydration and continue with bladder irrigation as needed. Urology is on board. Continue with ceftriaxone at this time. Monitor H&H. Follow-up closely and further recommendations based on the clinical course. Time with Patient: Greater than 30
[2020-03-07 06:54] LABS: Glucose,Whole Blood 103 mg/dL (75-99)
[2020-03-07] MEDS: TAMSULOSIN 0.4 MG CAP.ER.24H PO SCH (08:16)
[2020-03-07] MEDS: FINASTERIDE 5 MG TAB PO SCH (08:16)
[2020-03-07] MEDS: FERROUS SULFATE 325 MG TAB PO SCH (08:16)
--- NOTE | 2020-03-07 10:54 | P.PN ---
Subjective Progress Note Date: 03/07/20 Principal diagnosis: gross hematuria Urine is clear this am, denies any abdominal pain. Pain is controlled Objective - Vital Signs Vital signs: Vital Signs Temp 98.5 F 03/07/20 05:00 Pulse 80 03/07/20 05:00 Resp 18 03/07/20 05:00 BP 119/60 03/07/20 05:00 Pulse Ox 98 03/07/20 05:00 Intake & Output 03/06/20 03/07/20 03/07/20 18:59 06:59 18:59 Intake Total 930 Output Total 300 800 450 Balance -300 130 -450 Intake: Intake, IV Titration 450 Amount Sodium Chloride 0.9% 1, 400 000 ml @ 75 mls/hr IV . [id number] KINZA Rx#:[id number] cefTRIAXone 1 gm In 50 Sodium Chloride 0.9% 50 ml @ 100 mls/hr IVPB Q24H KINZA Rx#:[id number] Oral 480 Output: Urine 300 800 450 Uretheral (Quesada) 800 Other: Voiding Method Indwelling Catheter Indwelling Catheter Indwelling Catheter - Constitutional General appearance: Present: no acute distress - Genitourinary Genitourinary Comment(s): urine is clear - Psychiatric Psychiatric: Present: A&O x's 3, appropriate affect - Labs CBC & Chem 7: 03/06/20 11:55 03/06/20 06:09 Labs: Abnormal Lab Results - Last 24 Hours (Table) 03/06/20 03/06/20 03/06/20 Range/Units 11:24 11:55 17:34 RBC 3.75 L (4.30-5.90) m/uL Hgb 10.9 L (13.0-17.5) gm/dL Hct 33.9 L (39.0-53.0) % POC Glucose (mg/dL) 113 H 120 H (75-99) mg/dL 03/06/20 03/07/20 Range/Units 19:50 06:53 RBC (4.30-5.90) m/uL Hgb (13.0-17.5) gm/dL Hct (39.0-53.0) % POC Glucose (mg/dL) 153 H 103 H (75-99) mg/dL Microbiology - Last 24 Hours (Table) 03/05/20 19:00 Urine Culture - Preliminary Urine,Voided Gram Neg Bacilli Assessment and Plan Assessment: 84 yo male S/P TURP in january by Dr Covarrubias, He presents to the hospital with urinary retention and gross hematuria. urine is clear this am. Urine culture from 03/03 showing Klebsiella Pneumonia. Plan: -Ok for discharge with quesada from urology standpoint -Abx for 7 days given his positive urine culture
[2020-03-07] MEDS: SYMBICORT 80-4.5 MCG INHALER INHALATION SCH (11:00)
[2020-03-07 11:24] LABS: Glucose,Whole Blood 98 mg/dL (75-99)
[2020-03-07 11:42] VITALS: BP 105/60; PULSE 77; TEMP 97.2
[2020-03-07] MEDS: SODIUM CHLORIDE 0.9% 1,000 ML IV SCH (15:43)
== END 2020-03-07 16:47 | disposition home or self-care (01) ==
LOC: EC 16:52 → 5NMEDONC 19:27
PROVIDERS: ADMIT Hospitalist; ATTEND Hospitalist
DX: R31.0 Gross hematuria (principal); R33.8 Other retention of urine; D62 Acute posthemorrhagic anemia; N39.0 Urinary tract infection, site not specified; B96.1 Klebsiella pneumoniae [K. pneumoniae] as the cause of diseases classified elsewhere; J45.909 Unspecified asthma, uncomplicated; R73.9 Hyperglycemia, unspecified; I49.3 Ventricular premature depolarization; R00.0 Tachycardia, unspecified; E78.5 Hyperlipidemia, unspecified; D86.9 Sarcoidosis, unspecified; K64.9 Unspecified hemorrhoids; K44.9 Diaphragmatic hernia without obstruction or gangrene; D72.829 Elevated white blood cell count, unspecified; I95.9 Hypotension, unspecified; R42 Dizziness and giddiness; Z79.51 Long term (current) use of inhaled steroids; Z79.899 Other long term (current) drug therapy; Z90.49 Acquired absence of other specified parts of digestive tract; Z90.79 Acquired absence of other genital organ(s)
CPT/HCPCS: 96361 ×3; 96365; 96366; 99284; 51798; 36415; 94640 ×3; 93005; 86900; 86901; 80053; 80048; 85025 ×2; 85610; 85730; 86850; 81001; 87086; 87077; 87186; 87635; G0378 ×3; S0138 ×2; J0696 ×2; 51702

== ENCOUNTER → 2020-06-12 | Outpatient (CLI) | payer MEDICARE ==
[2020-06-12 17:20] LABS: Basophils # (A) 0.1 k/uL (0-0.2); Basophils % (A) 0 %; Eosinophils # (A) 0.3 k/uL (0-0.7); Eosinophils % (A) 2 %; HCT 43.1 % (39.0-53.0); HGB 13.2 gm/dL (13.0-17.5); Hypochromasia Slight; Lymphocytes # (A) 1.6 k/uL (1.0-4.8); Lymphocytes % (A) 8 %; MCH 26.9 pg (25.0-35.0); MCHC 30.7 g/dL (31.0-37.0); MCV 87.6 fL (80.0-100.0); Mean Platelet Volume 8.9; Monocytes # (A) 1.4 k/uL (0-1.0); Monocytes % (A) 7 %; Neutrophils # (A) 16.5 k/uL (1.3-7.7); Neutrophils % (A) 82 %; Platelet Count 522 k/uL (150-450); RBC 4.92 m/uL (4.30-5.90); RDW 14.7 % (11.5-15.5); WBC 20.2 k/uL (3.8-10.6)
[2020-06-13 00:35] LABS: Erythrocyte Sedimentation Rate 63 mm/Hr (0-20)
[2020-06-13 01:58] LABS: African American GFR (CKD) 95.7 (60.0-200.0); Albumin 3.4 g/dL (3.80-4.90); Albumin/Globulin Ratio 1.13 (1.60-3.17); Anion Gap 12.5 mmol/L (4.00-12.00); BUN/Creat Ratio 18.75 Ratio (12.00-20.00); Calcium 8.6 mg/dL (8.7-10.3); Carbon Dioxide 22.5 mmol/L (21.6-31.8); Non-African American GFR(CKD) 82.6 (60.0-200.0); Potassium 4.9 mmol/L (3.5-5.5); Total Bilirubin 0.5 mg/dL (0.2-1.2); Total Protein 6.4 g/dL (6.2-8.2)
[2020-06-13 02:05] LABS: T4, Free (Free Thyroxine) 1.2 ng/dL (0.80-1.80)
== END | disposition home or self-care (01) ==
LOC: LABWHC1 14:19
PROVIDERS: ATTEND Internal Medicine
DX: R00.0 Tachycardia, unspecified (principal); R63.4 Abnormal weight loss
CPT/HCPCS: 36415; 80053; 84439; 84443; 85025; 85652; 86038

== ENCOUNTER 2020-06-16 09:47 | Inpatient (IN) | payer MEDICARE ==
[2020-06-16] MEDS ORDERED: SODIUM CHLORIDE 0.9% 500 ML 500 ML IV STA (10:23)
--- NOTE | 2020-06-16 10:26 | ED ---
General Adult HPI - General Chief complaint: Weakness Stated complaint: Not sleeping or eating Time Seen by Provider: 06/16/20 09:57 Source: patient, RN notes reviewed, old records reviewed Mode of arrival: wheelchair Limitations: no limitations - History of Present Illness Initial comments: 85-year-old male presenting with weight loss, poor appetite, insomnia. Patient states he symptoms have been ongoing for several weeks and worsening significantly over the past one week. He states he's had significant weight loss in the past one week he has been eating normal strength nothing. He denies chest pain or dyspnea. Denies abdominal pain. He complains of bilateral lower extremity pain as well as tingling. Denies focal numbness or weakness. Denies headache. - Related Data Home Medications Medication Instructions Recorded Confirmed Albuterol Sulfate [Proair Hfa] 2 puff INHALATION RT-QID PRN 04/08/14 06/16/20 Fluticasone/Salmeterol [Advair 2 puff INHALATION RT-BID 04/08/14 06/16/20 100-50 Diskus] Ferrous Sulfate [Iron (65 MG 325 mg PO DAILY 07/31/16 06/16/20 Elemental)] Simvastatin [Zocor] 20 mg PO HS 12/31/19 06/16/20 Fluticasone Nasal Elizabeth [Flonase 1 spr EA NOSTRIL DAILY 06/16/20 06/16/20 Nasal Elizabeth] Megestrol [Megace] 400 mg PO DAILY 06/16/20 06/16/20 Melatonin Unknown Dose Gummy 1 tab PO HS 06/16/20 06/16/20 Metoprolol Tartrate [Lopressor] 25 mg PO BID 06/16/20 06/16/20 Montelukast [Singulair] 10 mg PO HS 06/16/20 06/16/20 Multivitamins, Thera [Multivitamin 1 tab PO DAILY 06/16/20 06/16/20 (formulary)] Allergies Allergy/AdvReac Type Severity Reaction Status Date / Time No Known Allergies Allergy Verified 06/16/20 10:34 Review of Systems ROS Statement: Those systems with pertinent positive or pertinent negative responses have been documented in the HPI. ROS Other: All systems not noted in ROS Statement are negative. Past Medical History Past Medical History: Asthma, Hyperlipidemia, Prostate Disorder Additional Past Medical History / Comment(s): hemorrhoids,HIATAL HERNIA, BEN COIDOSIS,enlarged prostate, History of Any Multi-Drug Resistant Organisms: None Reported Past Surgical History: Appendectomy, Orthopedic Surgery, Prostate Surgery Additional Past Surgical History / Comment(s): RT ROTATOR CUFF, LYMPH NODE BX Past Anesthesia/Blood Transfusion Reactions: No Reported Reaction Past Psychological History: No Psychological Hx Reported Smoking Status: Never smoker Past Alcohol Use History: None Reported Past Drug Use History: None Reported - Past Family History Mother Family Medical History: No Reported History Father Family Medical History: No Reported History General Exam Limitations: no limitations General appearance: alert, in no apparent distress Head exam: Present: atraumatic, normocephalic Eye exam: Present: normal appearance, PERRL ENT exam: Present: mucous membranes dry Neck exam: Present: normal inspection Respiratory exam: Present: normal lung sounds bilaterally. Absent: respiratory distress, wheezes Cardiovascular Exam: Present: normal rhythm, tachycardia GI/Abdominal exam: Present: soft. Absent: distended, tenderness, guarding Extremities exam: Present: normal inspection, normal capillary refill, other (Bilateral pedal pulses, 2+ and symmetric). Absent: pedal edema, joint swelling, calf tenderness Neurological exam: Present: alert, oriented X3, CN II-XII intact. Absent: motor sensory deficit Psychiatric exam: Present: normal affect, normal mood Skin exam: Present: warm, dry, intact. Absent: cyanosis, diaphoretic Course Vital Signs 06/16/20 09:50 Temperature 98.4 F Pulse Rate 123 H Respiratory 18 Rate Blood Pressure 139/84 O2 Sat by Pulse 98 Oximetry EKG Findings - EKG Comments: EKG Findings:: EKG: Sinus tachycardia, rate of 115 NM interval 134, QRS duration 84, QTC 462, no ST segment elevation Medical Decision Making - Medical Decision Making 85-year-old male with weakness, poor appetite. Patient appears dehydrated denying any pain complaints. Workup reveals EKG was sinus tachycardia, chest x- ray negative for acute cardiopulmonary findings. He has significantly elevated white blood cell count 23,000 stable hemoglobin has a normal lactic acid. Denies any infectious complaints no cough, no dysuria. Urinalysis is pending. Patient is started on IV antibiotics awaiting culture results, urinalysis. He w ill be admitted to internal medicine. - Lab Data Result diagrams: 06/16/20 10:45 06/16/20 10:45 Lab Results 06/16/20 06/16/20 06/16/20 Range/Units 10:45 10:45 10:45 WBC 23.3 H (3.8-10.6) k/uL RBC 4.91 (4.30-5.90) m/uL Hgb 13.1 (13.0-17.5) gm/dL Hct 42.4 (39.0-53.0) % MCV 86.3 (80.0-100.0) fL MCH 26.7 (25.0-35.0) pg MCHC 30.9 L (31.0-37.0) g/dL RDW 14.4 (11.5-15.5) % Plt Count 684 H (150-450) k/uL Neutrophils % 88 % Lymphocytes % 4 % Monocytes % 6 % Eosinophils % 1 % Basophils % 0 % Neutrophils # 20.3 H (1.3-7.7) k/uL Lymphocytes # 1.0 (1.0-4.8) k/uL Monocytes # 1.4 H (0-1.0) k/uL Eosinophils # 0.3 (0-0.7) k/uL Basophils # 0.1 (0-0.2) k/uL Hypochromasia Slight PT (9.0-12.0) sec INR (<1.2) APTT (22.0-30.0) sec Sodium 134 L (137-145) mmol/L Potassium 5.2 H (3.5-5.1) mmol/L Chloride 105 (98-107) mmol/L Carbon Dioxide 18 L (22-30) mmol/L Anion Gap 11 mmol/L BUN 16 (9-20) mg/dL Creatinine 0.64 L (0.66-1.25) mg/dL Est GFR (CKD-EPI)AfAm >90 (>60 ml/min/1.73 sqM) Est GFR (CKD-EPI)NonAf >90 (>60 ml/min/1.73 sqM) Glucose 169 H (74-99) mg/dL Plasma Lactic Acid Gareth 1.3 (0.7-2.0) mmol/L Calcium 8.4 (8.4-10.2) mg/dL Magnesium 2.5 H (1.6-2.3) mg/dL Total Bilirubin 1.3 (0.2-1.3) mg/dL AST 43 (17-59) U/L ALT 27 (4-49) U/L Alkaline Phosphatase 144 H (38-126) U/L Creatine Kinase 50 L (55-170) U/L Total Protein 6.3 (6.3-8.2) g/dL Albumin 2.8 L (3.5-5.0) g/dL 06/16/20 Range/Units 11:19 WBC (3.8-10.6) k/uL RBC (4.30-5.90) m/uL Hgb (13.0-17.5) gm/dL Hct (39.0-53.0) % MCV (80.0-100.0) fL MCH (25.0-35.0) pg MCHC (31.0-37.0) g/dL RDW (11.5-15.5) % Plt Count (150-450) k/uL Neutrophils % % Lymphocytes % % Monocytes % % Eosinophils % % Basophils % % Neutrophils # (1.3-7.7) k/uL Lymphocytes # (1.0-4.8) k/uL Monocytes # (0-1.0) k/uL Eosinophils # (0-0.7) k/uL Basophils # (0-0.2) k/uL Hypochromasia PT (9.0-12.0) sec INR (<1.2) APTT (22.0-30.0) sec Sodium (137-145) mmol/L Potassium (3.5-5.1) mmol/L Chloride (98-107) mmol/L Carbon Dioxide (22-30) mmol/L Anion Gap mmol/L BUN (9-20) mg/dL Creatinine (0.66-1.25) mg/dL Est GFR (CKD-EPI)AfAm (>60 ml/min/1.73 sqM) Est GFR (CKD-EPI)NonAf (>60 ml/min/1.73 sqM) Glucose (74-99) mg/dL Plasma Lactic Acid Gareth (0.7-2.0) mmol/L Calcium (8.4-10.2) mg/dL Magnesium (1.6-2.3) mg/dL Total Bilirubin (0.2-1.3) mg/dL AST (17-59) U/L ALT (4-49) U/L Alkaline Phosphatase (38-126) U/L Creatine Kinase (55-170) U/L Total Protein (6.3-8.2) g/dL Albumin (3.5-5.0) g/dL Disposition Clinical Impression: Dehydration, Leukocytosis Disposition: ADMITTED IP TO THIS [facility] Condition: Stable Is patient prescribed a controlled substance at d/c from ED?: No Referrals: Mitesh Chris MD [Primary Care Provider] - 1-2 days Decision to Admit Reason: Admit from EC Decision Date: 06/16/20 Decision Time: 12:47
[2020-06-16 11:05] LABS: Basophils # (A) 0.1 k/uL (0-0.2); Basophils % (A) 0 %; Eosinophils # (A) 0.3 k/uL (0-0.7); Eosinophils % (A) 1 %; HCT 42.4 % (39.0-53.0); HGB 13.1 gm/dL (13.0-17.5); Hypochromasia Slight; Lymphocytes % (A) 4 %; MCH 26.7 pg (25.0-35.0); MCHC 30.9 g/dL (31.0-37.0); MCV 86.3 fL (80.0-100.0); Mean Platelet Volume 7.6; Monocytes # (A) 1.4 k/uL (0-1.0); Monocytes % (A) 6 %; Neutrophils # (A) 20.3 k/uL (1.3-7.7); Neutrophils % (A) 88 %; Platelet Count 684 k/uL (150-450); RBC 4.91 m/uL (4.30-5.90); RDW 14.4 % (11.5-15.5); WBC 23.3 k/uL (3.8-10.6)
[2020-06-16 11:18] LABS: ALT 27 U/L (4-49); AST 43 U/L (17-59); African American GFR (CKD) >90 (>60 ml/min/1.73 sqM); Albumin 2.8 g/dL (3.5-5.0); Alkaline Phosphatase 144 U/L (38-126); Anion Gap 11 mmol/L; Blood Urea Nitrogen 16 mg/dL (9-20); Calcium 8.4 mg/dL (8.4-10.2); Carbon Dioxide 18 mmol/L (22-30); Chloride 105 mmol/L (98-107); Creatine Kinase 50 U/L (55-170); Glucose 169 mg/dL (74-99); Magnesium 2.5 mg/dL (1.6-2.3); Non-African American GFR(CKD) >90 (>60 ml/min/1.73 sqM); Potassium 5.2 mmol/L (3.5-5.1); Sodium 134 mmol/L (137-145); Total Bilirubin 1.3 mg/dL (0.2-1.3); Total Protein 6.3 g/dL (6.3-8.2)
--- NOTE | 2020-06-16 11:27 | XR ---
EXAMINATION TYPE: XR chest 2V DATE OF EXAM: 06/16/2020 COMPARISON: 06/06/2020 HISTORY: Shortness of breath TECHNIQUE: Frontal and lateral views of the chest are obtained. FINDINGS: Scattered senescent parenchymal changes noted. Hyperinflation compatible with COPD. No evidence for infiltrate. No evidence for atelectasis. Heart size is stable. There is a large fixed hiatal hernia. Mediastinal structures are stable and grossly unremarkable. No evidence for hilar prominence. Degenerative changes dorsal spine. IMPRESSION: 1. No evidence for acute pulmonary disease.
[2020-06-16] MEDS ORDERED: cefTRIAXone IN SWFI 1,000 MG/10 ML SYRINGE IVP STA (11:55)
[2020-06-16] MEDS ORDERED: NALOXONE 0.4 MG/ML 1 ML VIAL IV PRN (12:41)
[2020-06-16 12:59] LABS: INR 1.2 (<1.2); Prothrombin Time 11.8 sec (9.0-12.0)
[2020-06-16 13:17] LABS: Appearance,Urine Cloudy (Clear); Bacteria,Urine Rare /hpf; Bilirubin,Urine Negative (Negative); Blood,Urine Negative (Negative); Color,Urine Yellow; Glucose,Urine (UA) 1+ (Negative); Hyaline Casts,Urine 1 /lpf (0-2); Leukocyte Esterase,Urine Negative (Negative); Mucus,Urine Many /hpf; Nitrite,Urine Negative (Negative); PH, Urine 5.5 (5.0-8.0); Protein,Urine 1+ (Negative); RBC,Urine 1 /hpf (0-5); Specific Gravity,Urine 1.024 (1.001-1.035); Squamous Epithelial Cell,Urine 1 /hpf (0-4); WBC,Urine 6 /hpf (0-5)
[2020-06-16 13:31] LABS: Ketones,Urine 2+ (Negative)
--- NOTE | 2020-06-16 15:44 | P.CNPUL ---
History of Present Illness Consult date: 06/16/20 Chief complaint: Leukocytosis, generalized weakness, weight loss History of present illness: This is an 85-year-old male patient who has been followed up in our office and the patient is a combination of medical problems including questionable history of sarcoidosis, diverticulosis of the colon, history of benign prostatic hypertrophy with outflow obstruction, mild asthma, hyperlipidemia and ALLERGIC rhinitis. More recently, the patient was noted to have some weight loss. For that reason, the patient was given 100 mg on a daily basis. The chest x-ray also done in the office showed a large hiatal hernia. The patient presented to the emergency department today with weight loss, poor appetite and insomnia. This been going on for quite some time. He had significant weight loss according to him he has lost approximately 20 pounds and he has been eating and his getting progressively more weak. No chest pain. No shortness of breath. No nausea. No vomiting. No abdominal pain. He complains of lower extremity pain and tingling. No GI bleeding. No headache. No altered mentation. No fever. No chills. Chest x-ray shows a large hiatal hernia and a white cell count was elevated at 23 with a hemoglobin of 13.1 and a platelet count of 654. He had a serum bicarb of 18 with a potassium level of 5.2 and a sodium level of 134. Renal function was normal. The coagulation profile was within normal. UA showed +1 protein, +1 glucose, +2 ketones and 6 WBCs. He is serum protein is down to 2.8 with a total protein level of 6.3. His lactic acid level was normal at 1.3. Calcium level was at 8.4.The patient was in the hospital back in December 2019 for GI bleed. He was taking Aleve. He came in for dark red blood stool and he underwent EGD and colonoscopy. EGD showed hiatal hernia and mild antral gastritis. Colonoscopy revealed ascending colon polyp and proximal transverse colonic polyp and the patient underwent polypectomy. He had diffuse diverticulosis. He was discharged home. Review of Systems Constitutional: Reports poor appetite, Reports weakness, Reports weight loss Eyes: denies as per HPI, denies blurred vision, denies bulging eye, denies d ecreased vision, denies diplopia, denies discharge, denies dry eye, denies irritation, denies itching, denies pain, denies photophobia, denies loss of peripheral vision, denies loss of vision, denies tunnel vision/blind spots Ears: deny: decreased hearing, ear discharge, earache, tinnitus Ears, nose, mouth and throat: Reports as per HPI Breasts: absent: as per HPI, gynecomastia Cardiovascular: Denies chest pain, Denies shortness of breath Respiratory: Reports as per HPI Gastrointestinal: Reports loss of appetite Genitourinary: Reports as per HPI, Reports hematuria, Reports urinary frequency, Reports urinary hesitancy Musculoskeletal: Reports muscle weakness Musculoskeletal: absent: ankle pain, ankle stiffness, ankle swelling Integumentary: Reports as per HPI Psychiatric: Reports as per HPI Endocrine: Reports as per HPI Hematologic/Lymphatic: Reports as per HPI Past Medical History Past Medical History: Asthma, Hyperlipidemia, Prostate Disorder Additional Past Medical History / Comment(s): Hiatal hernia, hemorrhoids, SARCOIDOSIS,enlarged prostate, allergic rhinitis History of Any Multi-Drug Resistant Organisms: None Reported Past Surgical History: Appendectomy, Orthopedic Surgery, Prostate Surgery Additional Past Surgical History / Comment(s): RT ROTATOR CUFF, LYMPH NODE BX , TURP Past Anesthesia/Blood Transfusion Reactions: No Reported Reaction Past Psychological History: No Psychological Hx Reported Smoking Status: Never smoker Past Alcohol Use History: None Reported Past Drug Use History: None Reported - Past Family History Mother Family Medical History: No Reported History Father Family Medical History: No Reported History Medications and Allergies Home Medications Medication Instructions Recorded Confirmed Type Albuterol Sulfate [Proair Hfa] 2 puff INHALATION RT-QID PRN 04/08/14 06/16/20 History Fluticasone/Salmeterol [Advair 2 puff INHALATION RT-BID 04/08/14 06/16/20 History 100-50 Diskus] Ferrous Sulfate [Iron (65 MG 325 mg PO DAILY 07/31/16 06/16/20 History Elemental)] Simvastatin [Zocor] 20 mg PO HS 12/31/19 06/16/20 History Fluticasone Nasal [place] [Flonase 1 spr EA NOSTRIL DAILY 06/16/20 06/16/20 History Nasal [place]] Megestrol [Megace] 400 mg PO DAILY 06/16/20 06/16/20 History Melatonin Unknown Dose Gummy 1 tab PO HS 06/16/20 06/16/20 History Metoprolol Tartrate [Lopressor] 25 mg PO BID 06/16/20 06/16/20 History Montelukast [Singulair] 10 mg PO HS 06/16/20 06/16/20 History Multivitamins, Thera [Multivitamin 1 tab PO DAILY 06/16/20 06/16/20 History (formulary)] Allergies Allergy/AdvReac Type Severity Reaction Status Date / Time No Known Allergies Allergy Verified 06/16/20 10:34 Physical Exam Vitals: Vital Signs Temp Pulse Pulse Resp BP BP Pulse Ox 06/16/20 13:48 97.8 F 60 16 128/75 99 06/16/20 13:24 97 18 120/71 97 06/16/20 09:50 98.4 F 123 H 18 139/84 98 Intake and Output 06/16/20 06/16/20 06/16/20 06:59 14:59 22:59 Other: Weight 70.307 kg The patient appeared well nourished and normally developed. Vital signs as documented. Head exam is unremarkable. No scleral icterus or corneal arcus noted. Neck is without jugular venous distension, thyromegaly, or carotid bruits. Carotid upstrokes are brisk bilaterally. Lungs are clear to auscultation and percussion. Cardiac exam reveals the PMI to be normally sized and situated. Rhythm is regular. First and second heart sounds normal. No murmurs, rubs or gallops. Abdominal exam reveals normal bowel sounds, no masses, no organomegaly and no aortic enlargement. Extremities are nonedematous and both femoral and pedal pulses are normal.Examination of the skin revealed no evidence of significant rashes, suspicious appearing nevi or other concerning lesions. Results - Laboratory Findings CBC and BMP: 06/16/20 10:45 06/16/20 10:45 PT/INR, D-dimer PT 11.8 sec (9.0-12.0) 06/16/20 12:35 INR 1.2 (<1.2) H 06/16/20 12:35 Abnormal lab findings: Abnormal Labs 06/16/20 06/16/20 06/16/20 10:45 10:45 10:45 WBC 23.3 H MCHC 30.9 L Plt Count 684 H Neutrophils # 20.3 H Monocytes # 1.4 H INR Sodium 134 L Potassium 5.2 H Carbon Dioxide 18 L Creatinine 0.64 L Glucose 169 H Magnesium 2.5 H Alkaline Phosphatase 144 H Creatine Kinase 50 L Albumin 2.8 L Urine Protein 1+ H Urine Glucose (UA) 1+ H Urine Ketones 2+ H Urine WBC 6 H Urine Bacteria Rare H Urine Mucus Many H 06/16/20 12:35 WBC MCHC Plt Count Neutrophils # Monocytes # INR 1.2 H Sodium Potassium Carbon Dioxide Creatinine Glucose Magnesium Alkaline Phosphatase Creatine Kinase Albumin Urine Protein Urine Glucose (UA) Urine Ketones Urine WBC Urine Bacteria Urine Mucus Assessment and Plan Plan: 1 unexplained weight loss in addition to loss of appetite and skeletal body aches, rule out paraneoplastic 2 hypoalbuminemia, with inverted albumin to globulin ratio, consider multiple myeloma 3 leukocytosis, unexplained, doubt infectious 4 large hiatal hernia 5 recent hospitalization for GI bleed 6 diverticulosis with tubulovillous adenoma based on a colonoscopy that was done a few months back 7 mild intermittent bronchial asthma 8 questionable history of sarcoidosis and this is remote history and there is no evidence of any ongoing active sarcoidosis for now 9 benign prostatic hypertrophy post TURP 10. ALLERGIC rhinitis Plan Check serum protein electrophoresis and immune of phoresis Proceed with a CAT scan of the chest and abdomen with oral contrast Monitor white cell count Check pro calcitonin level We'll continue to follow
[2020-06-16] MEDS ORDERED: RX INFO: IV CONTRAST WAS GIVEN 1 EACH MISC MISCELLANE PRN (15:46)
[2020-06-16] MEDS: IOPAMIDOL CONTRAST (ORAL USE) VIAL PO PRN ×2 (16:06→16:55)
[2020-06-16] MEDS: SODIUM CHLORIDE 0.9% 1,000 ML IV SCH ×3 (19:01→20:58)
[2020-06-16] MEDS: METOPROLOL TARTRATE 25 MG TAB PO SCH (20:58)
[2020-06-16] MEDS: ATORVASTATIN 10 MG TAB PO SCH (20:58)
[2020-06-16] MEDS: MONTELUKAST 10 MG TAB PO SCH (20:58)
--- NOTE | 2020-06-16 22:40 | CT ---
EXAMINATION TYPE: CT ChestAbdPelvis w con DATE OF EXAM: 06/16/2020 INDICATION: Unexplained weight loss. COMPARISON: 04/13/2014 CT DLP: 991.1 mGycm CONTRAST: Performed with Oral Contrast and with IV Contrast, patient injected with 100 mL of Isovue 300. TECHNIQUE: Axial images at 5 mm thick sections. Reconstructed images in the coronal plane. Delayed images through the kidneys. FINDINGS: CT CHEST: There appears to be a posterior diaphragmatic hernia containing stomach. This was present p reviously and is stable. Portion of the thyroid visualized is normal. No suspicious lung nodules or focal infiltrates are present. No enlarged mediastinal or hilar adenopathy is evident. The ascending aorta diameter at the level of the main pulmonary artery is 3.7 cm. The main pulmonary artery diameter at the bifurcation is 2.[address] ABDOMEN: Liver: Normal Spleen: Normal Pancreas: Normal Adrenal glands: The adrenal glands are normal. Gallbladder: Cholelithiasis Kidneys: No masses are evident. No hydronephrosis is present. Tiny cortical renal cyst on the poste rior medial left upper pole Delayed images were obtained through the kidneys, which remain unremarka ble. Aorta: Vascular calcification is within the aorta. Inferior vena cava: Normal. CT PELVIS: Multiple diverticuli are within the sigmoid colon. No acute diverticulitis is evident. Large fecal shanita amira is at the level of rectum. Oral contrast extends to the descending colon. Appendix: Not visualized. No suspicious inflammatory changes or dilated tubular structures are eviden t. Urinary bladder: Normal. Genitourinary structures: Prostate is normal Osseous structures: No suspicious lytic or sclerotic lesions. Spondylolysis of L5 is present. Degener ative disc changes are present L5-S1. Sacroiliac joint degenerative changes are present. IMPRESSIONS: 1. No suspicious etiology to account for weight loss. 2. Diverticulosis without acute diverticulitis. 3. Spondylolysis of L5. 4. Cholelithiasis. 5. Large diaphragmatic hernia posterior mediastinum containing the stomach, stable from comparison.
[2020-06-17] MEDS ORDERED: HYDROcodone/APAP 5-325MG 1 EACH TAB PO PRN (00:16)
[2020-06-17] MEDS ORDERED: TEMAZEPAM 15 MG CAP PO PRN (00:16)
[2020-06-17] MEDS ORDERED: ALPRAZolam 0.25 MG TAB PO PRN (00:16)
[2020-06-17 01:47] LABS: Appearance,Urine Clear (Clear); Bilirubin,Urine Negative (Negative); Blood,Urine Negative (Negative); Color,Urine Yellow; Glucose,Urine (UA) 1+ (Negative); Ketones,Urine 1+ (Negative); Leukocyte Esterase,Urine Negative (Negative); Nitrite,Urine Negative (Negative); PH, Urine 5.5 (5.0-8.0); Protein,Urine Trace (Negative); Specific Gravity,Urine 1.033 (1.001-1.035)
[2020-06-17 02:44] LABS: Protein, Total 5.4 g/dL (6.2-8.2)
--- NOTE | 2020-06-17 07:15 | HP ---
HISTORY AND PHYSICAL DATE OF SERVICE: 06/17/2020 CHIEF COMPLAINT: Weakness and weight loss. HISTORY OF PRESENT ILLNESS: This is an 85-year-old gentleman with a past medical history of multiple medical problems including asthma, history of hyperlipidemia, history of prostate disorder, hiatal hernia, hemorrhoids, sarcoidosis, allergic rhinitis, appendectomy, DJD being followed by Dr. Chris in the outpatient is complaining of significant weakness and wasting. The patient has lost several pounds of weight recently. Patient also is complaining of loss of appetite and increased satiety. The patient is apparently eating 1 toast and feeling full afterwards. Patient also complaining of bilateral leg pain. The patient was admitted for further evaluation and treatment. Evaluation by Dr. Pond is in progress at this time. The CT scan of the abdomen and pelvis was done which showed cholelithiasis and large diaphragmatic hernia. There is no history of fever, rigors, chills. No history of headache, loss of consciousness or seizures. PAST MEDICAL HISTORY: History asthma, hyperlipidemia, prostate, hiatal hernia, sarcoidosis, enlarged prostate. MEDICATIONS: Simvastatin 20 mg q.h.s., multivitamins, Singulair, Lopressor, melatonin, Megace, Advair HFA, iron, ProAir HFA. ALLERGIES: None. FAMILY HISTORY: No history of heart disease or strokes in the family. SOCIAL HISTORY: No history of smoking. No history of alcohol intake. REVIEW OF SYSTEMS: ENT: No diminished vision or hearing. CARDIOVASCULAR: No angina. RESPIRATORY: No cough. GI: As mentioned earlier. : No dysuria. NERVOUS SYSTEM: No numbness or weakness. ALLERGY/IMMUNOLOGY: No asthma or hayfever. MUSCULOSKELETAL: As mentioned earlier. HEMATOLOGY: No history of anemia. ENDOCRINE: No history of diabetes or hypothyroidism. CONSTITUTIONAL: As mentioned earlier. DERMATOLOGY: Negative. RHEUMATOLOGY: Negative. PSYCHIATRY: As mentioned earlier. PHYSICAL EXAMINATION: GENERAL: Patient is alert and oriented times three. VITAL SIGNS: Pulse 101, blood pressure 120/73, respirations 16, temperature 97.8, pulse ox 97% on room air HEENT: Conjunctivae normal. Oral mucosa is moist. NECK: No jugular venous distention. No carotid bruits. No lymph node enlargement. RESPIRATORY: Breath sounds diminished at the bases. A few scattered rhonchi and crackles. HEART: S1 and S2, muffled. ABDOMEN: Soft, scaphoid, no tenderness. No masses palpable. EXTREMITIES: No edema, no swelling. NERVOUS: Higher functions as mentioned earlier. Moves all four limbs. No focal motor or sensory deficits. LYMPHATICS: No lymph nodes in the neck or axilla. SKIN: No rashes, rash or bleeding. JOINTS: No active deforming arthropathy. NERVOUS SYSTEM: Diffuse wasting present. LABS: WBC 23.3, platelets 684. Sodium 132, potassium 5.2, CO2 is 18, creatinine is 0.64, glucose 169, magnesium is 2.5. Creatinine kinase is 50. Albumin is 2.8. UA shows 6 WBCs and cloudy urine, 2+ ketones, protein is 1+. ASSESSMENT: 1. Weakness and wasting for evaluation, rule out multiple myeloma. 2. Rule out metastatic malignancy. 3. Rule out collagen vascular disorders. 4. Increased WBC of undetermined etiology. 5. Rule out urinary tract infection. 6. Hyponatremia. 7. Hyperkalemia. 8. Decreased CO2 with possibly mild metabolic acidosis. 9. Hypermagnesemia. 10.Hypoalbuminemia with severe protein calorie malnutrition with body mass index of 22.2. 11.Ketonuria. 12.History of asthma. 13.Hyperlipidemia. 14.Prostate disorder. 15.History of hiatal hernia. 16.History hemorrhoids. 17.History of sarcoidosis. 18.History of enlarged prostate. 19.History of allergy rhinitis. 20.History of degenerative joint disease. 21.Cholelithiasis. 22.Sinus tachycardia. 23.FULL CODE. RECOMMENDATIONS AND DISCUSSION: In this 85-year-old gentleman who presented with multiple complex medical issues, we will monitor the patient closely. Continue the current management and continue symptomatic treatment. CT scan has been order. CT scan has been noted. I would recommend a bone scan to complete the workup, sedimentation rate, ESR, MARKELL and rheumatoid factor. I would also recommend blood cultures and 2D echo with Doppler and urine culture. Empiric antibiotics in the form of Rocephin have been initiated. The prognosis is extremely guarded because of multiple complex medical issues. Further recommendations to follow. The EKG which was reviewed personally by me showed sinus tachycardia. We will also check a TSH and free T4 as well to rule out the possibility of any thyroid abnormalities. See orders for details details. MMODL / IJN: [id number] / [facility]
--- NOTE | 2020-06-17 08:09 | CT ---
EXAMINATION TYPE: CT brain wo con DATE OF EXAM: 06/17/2020 COMPARISON: None HISTORY: 85-year-old male confusion, altered mental status TECHNIQUE: Examination was done in axial plane without intravenous contrast. Coronal and sagittal r econstructions performed. CT DLP: 1099.4 mGycm Automated exposure control for dose reduction was used. FINDINGS: There is no evidence of acute intracranial hemorrhage, acute ischemic changes, mass, mass-effect, or extra-axial fluid collection. There is no effacement of cerebral sulci or basal subarachnoid cister ns. There is no hydrocephalus. There is no midline shift. Webb-white matter distinction is preserv ed. Mild patchy periventricular white matter hypodensities. Either perivascular space or small old [place]una r infarct left basal ganglia. Paranasal sinuses and mastoid air cells are pneumatized. Orbits and globes are intact. IMPRESSION: Mild changes of chronic small vessel ischemic disease. No acute intracranial abnormality seen.
[2020-06-17 08:12] LABS: ALT 33 U/L (4-49); AST 41 U/L (17-59); African American GFR (CKD) >90 (>60 ml/min/1.73 sqM); Albumin 2.2 g/dL (3.5-5.0); Alkaline Phosphatase 136 U/L (38-126); Anion Gap 8 mmol/L; Blood Urea Nitrogen 13 mg/dL (9-20); Calcium 7.6 mg/dL (8.4-10.2); Carbon Dioxide 20 mmol/L (22-30); Chloride 106 mmol/L (98-107); Creatine Kinase <20 U/L (55-170); Glucose 122 mg/dL (74-99); Non-African American GFR(CKD) >90 (>60 ml/min/1.73 sqM); Potassium 4.5 mmol/L (3.5-5.1); Sodium 134 mmol/L (137-145); Total Protein 5.2 g/dL (6.3-8.2)
[2020-06-17] MEDS: FERROUS SULFATE 325 MG TAB PO SCH (08:21)
[2020-06-17] MEDS: METOPROLOL TARTRATE 25 MG TAB PO SCH ×2 (08:21→20:21)
[2020-06-17] MEDS: MEGESTROL 400 MG/10 ML CUP PO SCH (08:21)
[2020-06-17] MEDS: MULTIVITAMINS, THERA 1 EACH TAB PO SCH (08:21)
[2020-06-17] MEDS: HEPARIN SODIUM,PORCINE 5,000 UNIT/ML 1 ML VIAL SQ SCH ×2 (08:21→20:21)
[2020-06-17] MEDS: FLUTICASONE 50MCG/SPRAY NASAL 16GM EA NOSTRIL SCH (08:22)
[2020-06-17] MEDS: PANTOPRAZOLE 40 MG/10 ML VIAL IVP SCH ×2 (08:22→20:21)
[2020-06-17] MEDS: ALBUTEROL NEBULIZED 2.5 MG/3 ML INHALATION PRN (08:22)
[2020-06-17] MEDS: SYMBICORT 80-4.5 MCG INHALER INHALATION SCH ×2 (08:23→18:59)
[2020-06-17] MEDS: SODIUM CHLORIDE 0.9% 1,000 ML IV SCH ×3 (08:30→18:38)
[2020-06-17 11:13] LABS: Rheumatoid Factor, Qnt 10 IU/mL (0-15)
[2020-06-17 11:22] LABS: Prostate Specific Antigen 2.2 ng/mL (0.0-6.5)
--- NOTE | 2020-06-17 11:25 | P.PN ---
Subjective Progress Note Date: 06/17/20 Principal diagnosis: Generalized weakness, weight loss This is an 85-year-old male patient who has been followed up in our office and the patient is a combination of medical problems including questionable history of sarcoidosis, diverticulosis of the colon, history of benign prostatic hypertrophy with outflow obstruction, mild asthma, hyperlipidemia and ALLERGIC rhinitis. More recently, the patient was noted to have some weight loss. For that reason, the patient was given 100 mg on a daily basis. The chest x-ray also done in the office showed a large hiatal hernia. The patient presented to the emergency department today with weight loss, poor appetite and insomnia. This been going on for quite some time. He had significant weight loss according to him he has lost approximately 20 pounds and he has been eating and his getting progressively more weak. No chest pain. No shortness of breath. No nausea. No vomiting. No abdominal pain. He complains of lower extremity pain and tingling. No GI bleeding. No headache. No altered mentation. No fever. No chills. Chest x-ray shows a large hiatal hernia and a white cell count was elevated at 23 with a hemoglobin of 13.1 and a platelet count of 654. He had a serum bicarb of 18 with a potassium level of 5.2 and a sodium level of 134. Renal function was normal. The coagulation profile was within normal. UA showed +1 protein, +1 glucose, +2 ketones and 6 WBCs. He is serum protein is down to 2.8 with a total protein level of 6.3. His lactic acid level was normal at 1.3. Calcium level was at 8.4.The patient was in the hospital back in December 2019 for GI bleed. He was taking Aleve. He came in for dark red blood stool and he underwent EGD and colonoscopy. EGD showed hiatal hernia and mild antral gastritis. Colonoscopy revealed ascending colon polyp and proximal transverse colonic polyp and the patient underwent polypectomy. He had diffuse diverticulosis. He was discharged home. The patient is seen today 06/17/2020 in follow-up on the regular medical floor. He is currently resting comfortably in bed. Awake and alert in no acute distress. Maintaining O2 saturations in the mid 90s on room air. He's been afebrile. Hemodynamically stable. Urine culture pending. Sodium 134. Pota ssium 4.5. Creatinine 0.59. AST 41. ALT 33. Alk phos 136. Chronic rhinitis less than 20. C-reactive protein 216. TSH 1.18. Peripheral pulses 1 and 0.35. Rheumatoid factor 10. ESR 91. His 0.9 normal saline at 100 ML's per hour. On empiric anti-medics in the form of ceftriaxone. Continued on Symbicort and albuterol. Computed tomography scan of the chest abdomen and pelvis revealed no suspicious etiology to account for weight loss. Diverticulosis without acute diverticulitis. Spondylolysis of L5. Cholelithiasis. Large diaphragmatic hernia posterior mediastinum containing the stomach stable from comparison. Computed tomography scan of the brain revealed mild chronic changes of chronic small vessel vascular disease. No acute intracranial abnormality seen. Objective - Vital Signs Vital signs: Vital Signs Temp 98.7 F 06/17/20 07:00 Pulse 80 06/17/20 08:36 Resp 16 06/17/20 08:00 BP 127/75 06/17/20 07:00 Pulse Ox 97 06/17/20 07:00 Intake & Output 06/16/20 06/17/20 06/17/20 18:59 06:59 18:59 Intake Total 480 1100 Balance 480 1100 Weight 70.307 kg Intake: Intake, IV Titration 1100 Amount Sodium Chloride 0.9% 1, 1100 000 ml @ 100 mls/hr IV . Q10H [facility] Rx#:[id number] Oral 480 Other: Voiding Method Toilet Toilet Urinal Urinal # Voids 1 3 - Exam The patient is a very pleasant 85-year-old gentleman, on room air, appears well nourished and normally developed. Vital signs as documented. Head exam is unremarkable. No scleral icterus or corneal arcus noted. Neck is without jugular venous distension, thyromegaly, or carotid bruits. Carotid upstrokes are brisk bilaterally. Lungs are clear to auscultation and percussion. Cardiac exam reveals the PMI to be normally sized and situated. Rhythm is regular. First and second heart sounds normal. No murmurs, rubs or gallops. Abdominal exam reveals normal bowel sounds, no masses, no organomegaly and no aortic enlargement. Extremities are nonedematous and both femoral and pedal pulses are normal.Examination of the skin revealed no evidence of significant rashes, suspicious appearing nevi or other concerning lesions. - Labs CBC & Chem 7: 06/16/20 10:45 06/17/20 06:57 Labs: Abnormal Lab Results - Last 24 Hours (Table) 06/16/20 06/16/20 06/16/20 Range/Units 10:45 10:45 12:35 ESR (0-15) mm/hr INR 1.2 H (<1.2) Sodium 134 L (137-145) mmol/L Potassium 5.2 H (3.5-5.1) mmol/L Carbon Dioxide 18 L (22-30) mmol/L Creatinine 0.64 L (0.66-1.25) mg/dL Glucose 169 H (74-99) mg/dL Calcium (8.4-10.2) mg/dL Magnesium 2.5 H (1.6-2.3) mg/dL Alkaline Phosphatase 144 H (38-126) U/L Creatine Kinase 50 L (55-170) U/L C-Reactive Protein (<10.0) mg/L Total Protein (6.3-8.2) g/dL Total Protein (PEP) (6.2-8.2) g/dL Albumin 2.8 L (3.5-5.0) g/dL Procalcitonin (0.02-0.09) ng/mL Urine Protein 1+ H (Negative) Urine Glucose (UA) 1+ H (Negative) Urine Ketones 2+ H (Negative) Urine WBC 6 H (0-5) /hpf Urine Bacteria Rare H (None) /hpf Urine Mucus Many H (None) /hpf 06/16/20 06/16/20 06/17/20 Range/Units 22:02 22:02 01:30 ESR (0-15) mm/hr INR (<1.2) Sodium (137-145) mmol/L Potassium (3.5-5.1) mmol/L Carbon Dioxide (22-30) mmol/L Creatinine (0.66-1.25) mg/dL Glucose (74-99) mg/dL Calcium (8.4-10.2) mg/dL Magnesium (1.6-2.3) mg/dL Alkaline Phosphatase (38-126) U/L Creatine Kinase (55-170) U/L C-Reactive Protein (<10.0) mg/L Total Protein (6.3-8.2) g/dL Total Protein (PEP) 5.4 L (6.2-8.2) g/dL Albumin (3.5-5.0) g/dL Procalcitonin 0.35 H (0.02-0.09) ng/mL Urine Protein Trace H (Negative) Urine Glucose (UA) 1+ H (Negative) Urine Ketones 1+ H (Negative) Urine WBC (0-5) /hpf Urine Bacteria (None) /hpf Urine Mucus (None) /hpf 06/17/20 06/17/20 Range/Units 06:57 06:57 ESR 91 H (0-15) mm/hr INR (<1.2) Sodium 134 L (137-145) mmol/L Potassium (3.5-5.1) mmol/L Carbon Dioxide 20 L (22-30) mmol/L Creatinine 0.59 L (0.66-1.25) mg/dL Glucose 122 H (74-99) mg/dL Calcium 7.6 L (8.4-10.2) mg/dL Magnesium (1.6-2.3) mg/dL Alkaline Phosphatase 136 H (38-126) U/L Creatine Kinase <20 L (55-170) U/L C-Reactive Protein 216.0 H (<10.0) mg/L Total Protein 5.2 L (6.3-8.2) g/dL Total Protein (PEP) (6.2-8.2) g/dL Albumin 2.2 L (3.5-5.0) g/dL Procalcitonin (0.02-0.09) ng/mL Urine Protein (Negative) Urine Glucose (UA) (Negative) Urine Ketones (Negative) Urine WBC (0-5) /hpf Urine Bacteria (None) /hpf Urine Mucus (None) /hpf Microbiology - Last 24 Hours (Table) 06/17/20 01:30 Urine Culture - Preliminary Urine,Voided Assessment and Plan Assessment: 1 unexplained weight loss in addition to loss of appetite and skeletal body aches, rule out paraneoplastic 2 hypoalbuminemia, with inverted albumin to globulin ratio, consider multiple myeloma 3 leukocytosis, unexplained, doubt infectious 4 large hiatal hernia 5 recent hospitalization for GI bleed 6 diverticulosis with tubulovillous adenoma based on a colonoscopy that was done a few months back 7 mild intermittent bronchial asthma 8 questionable history of sarcoidosis and this is remote history and there is no evidence of any ongoing active sarcoidosis for now 9 benign prostatic hypertrophy post TURP 10. ALLERGIC rhinitis Plan The patient was seen and evaluated by Dr. Pond Computed tomography scan of the chest abdomen and pelvis reviewed Computed tomography scan of the brain without acute process Await further lab results We'll continue to follow I, the cosigning physician, performed a history & physical examination of the patient. Lungs sounds are clear. Maintaining good O2 saturations in the 90s on room air. I discussed the assessment and plan of care with my nurse practitioner, Kina Hobbs. I attest to the above note as dictated by her.
--- NOTE | 2020-06-17 12:20 | NM ---
EXAMINATION TYPE: NM bone scan whole body DATE OF EXAM: 06/17/2020 COMPARISON: NONE HISTORY: 85-year-old male with fall one week ago, bilateral lower extremity pain. Patient with a arth ritis of the left shoulder and right rotator cuff surgery several years back. Weight loss. TECHNIQUE: Delayed whole-body scanning was performed following the injection of 23.7 mCi Tc 99m MDP. Images acquired 3 hours post injection. FINDINGS: Some degenerative changes at the left greater than right shoulders. Scattered degenerative change of the left greater than right knees. No focal intense abnormal activity identified. No suspicious distr ibution of activity to suggest osseous metastatic disease. IMPRESSION: Scattered degenerative tracer activity particularly at the shoulders and left greater than right knee s.
[2020-06-17 12:26] VITALS: BMI 22.2
--- NOTE | 2020-06-17 14:50 | ECHOF ---
Referral Reason:high wbc MEASUREMENTS -------- HEIGHT: 152.4 cm WEIGHT: 70.3 kg BP: RVIDd: 3.4 cm (< 3.3) IVSd: 1.0 cm (0.6 - 1.1) LVIDd: 4.3 cm (3.9 - 5.3) LVPWd: 1.0 cm (0.6 - 1.1) IVSs: 1.2 cm LVIDs: 3.2 cm LVPWs: 1.4 cm LA Diam: 3.5 cm (2.7 - 3.8) Ao Diam: 2.8 cm (2.0 - 3.7) AV Cusp: 1.9 cm (1.5 - 2.6) LA Diam: 3.9 cm (2.7 - 3.8) MV EXCURSION: 20.824 mm (> 18.000) MV EF SLOPE: 65 mm/s (70 - 150) EPSS: 0.2 cm MV E Vijay: 0.58 m/s MV DecT: 225 ms MV A Vijay: 0.91 m/s MV E/A Ratio: 0.64 RAP: 5.00 mmHg RVSP: 31.31 mmHg FINDINGS -------- Sinus rhythm. This was a technically good study. LV size, wall thickness and systolic function are normal, with an EF greater than 55%. The left pernell tricular size is normal. The right ventricle is normal in size. The left atrial size is normal. The right atrial size is normal. The aortic valve is trileaflet, and appears structurally normal. No aortic stenosis or regurgitation. Mild mitral regurgitation is present. Mild tricuspid regurgitation present. Right ventricular systolic pressure is normal at < 35 mmHg. There is no pulmonic regurgitation present. The aortic root size is normal. There is no pericardial effusion. CONCLUSIONS -------- 1. LV size, wall thickness and systolic function are normal, with an EF greater than 55%. 2. The left ventricular size is normal. 3. The right ventricle is normal in size. 4. The left atrial size is normal. 5. The right atrial size is normal. 6. Mild mitral regurgitation is present. 7. Mild tricuspid regurgitation present. COMBINE MECHANIC: Jaimie Alejandro RDCS
--- NOTE | 2020-06-17 17:32 | PN ---
PROGRESS NOTE DATE OF SERVICE: 06/17/2020 INTERVAL HISTORY: This 85-year-old gentleman who was admitted with weakness and wasting, being closely monitored. Multiple myeloma needs to be ruled out, as well as the paraneoplastic syndrome associated with metastatic malignancy. However, the bone scan is negative. CT scan abdomen and pelvis and brain also did not show any significant acute abnormality at this time. The patient is on empiric antibiotics for possible UTI. Patient has urinary incontinence. PAST MEDICAL HISTORY: Reviewed. REVIEW OF SYSTEMS: CARDIOVASCULAR: No angina or palpitations. RESPIRATORY SYSTEM: As mentioned earlier. GI: As mentioned earlier. GI: As mentioned earlier. NERVOUS SYSTEM: No numbness. Generalized weakness present. CURRENT MEDICATIONS: Reviewed include [place] 5 mg q.6 p.r.n., Ventolin, Xanax, Lipitor, Symbicort, Rocephin 1 gram, iron sulfate, Flonase, heparin, Megace, lopressor, Narcan, Protonix, Restoril. PHYSICAL EXAM: GENERAL: Patient is alert, oriented x3. VITAL SIGNS: Pulse is 83. Blood pressure 118/66, respirations 16, temperature 97.8, pulse ox 97 percent on room air. HEENT: Conjunctivae normal. NECK: No jugular venous distention. RESPIRATORY: Breath sounds diminished at the bases. No rhonchi, no crackles. HEART: S1 and S2, muffled. ABDOMEN: Soft, scaphoid, no tenderness. EXTREMITIES: Minimal weakness of the proximal muscles and wasting also present. NERVOUS: As noted. LABS: Sodium is 130, potassium 4.4, CRP is 216. ESR is 91. UA noted. Procalcitonin 0.35. WBC is not available. Rheumatoid factor is 10. ASSESSMENT: 1. Weakness and wasting for evaluation, rule out multiple myeloma. 2. Rule out proximal myopathy and paraneoplastic syndrome. 3. Rule out collagen vascular disorders. 4. Increased WBC possibly secondary to urinary tract infection. 5. Acute urinary tract infection present on admission. 6. Hyponatremia. 7. Hyperkalemia. 8. Decreased CO2 with possible mild metabolic acidosis. 9. Hypermagnesemia. 10.Hypoalbuminemia with severe protein calorie malnutrition with body mass index of 22.2. 11.Acute anuria. 12.History of asthma. 13.Hyperlipidemia. 14.History of prostate disorder. 15.History of hiatal hernia. 16.History of hemorrhoids. 17.History of sarcoidosis. 18.History of enlarged prostate. 19.History of allergy rhinitis. 20.History of degenerative joint disease. 21.History of cholelithiasis. 22.Sinus tachycardia. 23.FULL CODE. RECOMMENDATIONS AND DISCUSSION: Recommend to continue current management, continue to monitor and symptomatic. Otherwise, at this time, I would recommend to continue with current medications. Continue with antibiotics. Otherwise, I would still recommend full GI workup including endoscopes. GI has been consulted. Otherwise we will continue to monitor. Repeat labs will be ordered. Guarded prognosis because of multiple complex medical issues. Further recommendations to follow. The patient's rheumatoid factor is normal. TSH is also normal. C-reactive protein and ESR is elevated. MMODL / IJN: [id number] /
[2020-06-17] MEDS: ATORVASTATIN 10 MG TAB PO SCH (20:21)
[2020-06-17] MEDS: MONTELUKAST 10 MG TAB PO SCH (20:21)
[2020-06-18] MEDS: SODIUM CHLORIDE 0.9% 1,000 ML IV SCH ×3 (02:35→20:13)
[2020-06-18] MEDS ORDERED: ACETAMINOPHEN TAB 325 MG TAB PO PRN (02:51)
[2020-06-18] MEDS: SYMBICORT 80-4.5 MCG INHALER INHALATION SCH ×2 (07:28→20:44)
[2020-06-18] MEDS: ALBUTEROL NEBULIZED 2.5 MG/3 ML INHALATION PRN (07:28)
[2020-06-18] MEDS: FERROUS SULFATE 325 MG TAB PO SCH (07:45)
[2020-06-18] MEDS: MEGESTROL 400 MG/10 ML CUP PO SCH (07:46)
[2020-06-18] MEDS: HEPARIN SODIUM,PORCINE 5,000 UNIT/ML 1 ML VIAL SQ SCH ×2 (07:46→20:13)
[2020-06-18] MEDS: MULTIVITAMINS, THERA 1 EACH TAB PO SCH (07:46)
[2020-06-18] MEDS: PANTOPRAZOLE 40 MG/10 ML VIAL IVP SCH ×2 (07:46→20:13)
[2020-06-18] MEDS: METOPROLOL TARTRATE 25 MG TAB PO SCH ×2 (07:46→20:13)
[2020-06-18] MEDS: FLUTICASONE 50MCG/SPRAY NASAL 16GM EA NOSTRIL SCH (07:47)
[2020-06-18 07:50] LABS: Basophils % (A) 0 %; Eosinophils # (A) 0.3 k/uL (0-0.7); Eosinophils % (A) 2 %; HCT 39.5 % (39.0-53.0); HGB 11.7 gm/dL (13.0-17.5); Hypochromasia Slight; Lymphocytes # (A) 1.3 k/uL (1.0-4.8); Lymphocytes % (A) 8 %; MCH 25.6 pg (25.0-35.0); MCHC 29.7 g/dL (31.0-37.0); MCV 86.3 fL (80.0-100.0); Mean Platelet Volume 7.3; Monocytes % (A) 6 %; Neutrophils # (A) 13.2 k/uL (1.3-7.7); Neutrophils % (A) 82 %; Platelet Count 653 k/uL (150-450); RBC 4.58 m/uL (4.30-5.90); RDW 14.7 % (11.5-15.5); WBC 16.1 k/uL (3.8-10.6)
--- NOTE | 2020-06-18 10:47 | P.PN ---
Subjective Progress Note Date: 06/18/20 Principal diagnosis: Generalized weakness, weight loss This is an 85-year-old male patient who has been followed up in our office and the patient is a combination of medical problems including questionable history of sarcoidosis, diverticulosis of the colon, history of benign prostatic hypertrophy with outflow obstruction, mild asthma, hyperlipidemia and ALLERGIC rhinitis. More recently, the patient was noted to have some weight loss. For that reason, the patient was given 100 mg on a daily basis. The chest x-ray also done in the office showed a large hiatal hernia. The patient presented to the emergency department today with weight loss, poor appetite and insomnia. This been going on for quite some time. He had significant weight loss according to him he has lost approximately 20 pounds and he has been eating and his getting progressively more weak. No chest pain. No shortness of breath. No nausea. No vomiting. No abdominal pain. He complains of lower extremity pain and tingling. No GI bleeding. No headache. No altered mentation. No fever. No chills. Chest x-ray shows a large hiatal hernia and a white cell count was elevated at 23 with a hemoglobin of 13.1 and a platelet count of 654. He had a serum bicarb of 18 with a potassium level of 5.2 and a sodium level of 134. Renal function was normal. The coagulation profile was within normal. UA showed +1 protein, +1 glucose, +2 ketones and 6 WBCs. He is serum protein is down to 2.8 with a total protein level of 6.3. His lactic acid level was normal at 1.3. Calcium level was at 8.4.The patient was in the hospital back in December 2019 for GI bleed. He was taking Aleve. He came in for dark red blood stool and he underwent EGD and colonoscopy. EGD showed hiatal hernia and mild antral gastritis. Colonoscopy revealed ascending colon polyp and proximal transverse colonic polyp and the patient underwent polypectomy. He had diffuse diverticulosis. He was discharged home. The patient is seen today 06/17/2020 in follow-up on the regular medical floor. He is currently resting comfortably in bed. Awake and alert in no acute distress. Maintaining O2 saturations in the mid 90s on room air. He's been afebrile. Hemodynamically stable. Urine culture pending. Sodium 134. Pota ssium 4.5. Creatinine 0.59. AST 41. ALT 33. Alk phos 136. Chronic rhinitis less than 20. C-reactive protein 216. TSH 1.18. Peripheral pulses 1 and 0.35. Rheumatoid factor 10. ESR 91. His 0.9 normal saline at 100 ML's per hour. On empiric anti-medics in the form of ceftriaxone. Continued on Symbicort and albuterol. Computed tomography scan of the chest abdomen and pelvis revealed no suspicious etiology to account for weight loss. Diverticulosis without acute diverticulitis. Spondylolysis of L5. Cholelithiasis. Large diaphragmatic hernia posterior mediastinum containing the stomach stable from comparison. Computed tomography scan of the brain revealed mild chronic changes of chronic small vessel vascular disease. No acute intracranial abnormality seen. The patient is seen today 06/18/2020 in follow-up on the regular medical floor. He is resting quite comfortably in bed. No shortness of breath, cough or congestion. Maintaining O2 saturation the mid 90s on room air. He is afebrile. Hemodynamically stable. Blood and urine cultures reveal no growth. White count 16.1. Hemoglobin 11.7. Platelet count 653. Bone scan revealed scattered degenerative tracer activity particularly at the shoulders and left greater than right knees. No evidence of osseous metastatic disease. Objective - Vital Signs Vital signs: Vital Signs Temp 97.8 F 06/18/20 07:00 Pulse 72 06/18/20 07:39 Resp 19 06/18/20 07:45 BP 119/69 06/18/20 07:00 Pulse Ox 95 06/18/20 07:00 Intake & Output 06/17/20 06/18/20 06/18/20 18:59 06:59 18:59 Intake Total 1100 Balance 1100 Weight 70.307 kg Intake: Intake, IV Titration 1100 Amount Sodium Chloride 0.9% 1, 1100 000 ml @ 100 mls/hr IV . Q10H [facility] Rx#:[id number] Other: Voiding Method Toilet Toilet Toilet Urinal Urinal Urinal # Voids 3 4 - Exam The patient is a very pleasant 85-year-old gentleman, on room air, appears well nourished and normally developed. Vital signs as documented. Head exam is unremarkable. No scleral icterus or corneal arcus noted. Neck is without jugular venous distension, thyromegaly, or carotid bruits. Carotid upstrokes are brisk bilaterally. Lungs are clear to auscultation and percussion. Cardiac exam reveals the PMI to be normally sized and situated. Rhythm is regular. First and second heart sounds normal. No murmurs, rubs or gallops. Abdominal exam reveals normal bowel sounds, no masses, no organomegaly and no aortic enlargement. Extremities are nonedematous and both femoral and pedal pulses are normal.Exa mination of the skin revealed no evidence of significant rashes, suspicious appearing nevi or other concerning lesions. - Labs CBC & Chem 7: 06/18/20 07:23 06/17/20 06:57 Labs: Abnormal Lab Results - Last 24 Hours (Table) 06/18/20 Range/Units 07:23 WBC 16.1 H (3.8-10.6) k/uL Hgb 11.7 L (13.0-17.5) gm/dL MCHC 29.7 L (31.0-37.0) g/dL Plt Count 653 H (150-450) k/uL Neutrophils # 13.2 H (1.3-7.7) k/uL Microbiology - Last 24 Hours (Table) 06/17/20 00:44 Blood Culture - Preliminary Blood No Growth after 24 hours 06/17/20 01:30 Urine Culture - Preliminary Urine,Voided Assessment and Plan Assessment: 1 unexplained weight loss in addition to loss of appetite and skeletal body aches, rule out paraneoplastic 2 hypoalbuminemia, with inverted albumin to globulin ratio, consider multiple myeloma 3 leukocytosis, unexplained, doubt infectious 4 large hiatal hernia 5 recent hospitalization for GI bleed 6 diverticulosis with tubulovillous adenoma based on a colonoscopy that was done a few months back 7 mild intermittent bronchial asthma 8 questionable history of sarcoidosis and this is remote history and there is no evidence of any ongoing active sarcoidosis for now 9 benign prostatic hypertrophy post TURP 10. ALLERGIC rhinitis Plan The patient was seen and evaluated by Dr. Dejah Mcgovern from the pulmonary standpoint Bone scan reviewed Await further lab results We'll continue to follow I, the cosigning physician, performed a history & physical examination of the patient. Lungs sounds are clear. Maintaining good O2 saturations in the 90s on room air. I discussed the assessment and plan of care with my nurse practitioner, Kina Anjel. I attest to the above note as dictated by her.
[2020-06-18] MEDS: METOCLOPRAMIDE 5 MG/ML 2 ML VIAL IVP SCH (16:50)
--- NOTE | 2020-06-18 17:36 | PN ---
PROGRESS NOTE DATE OF SERVICE: 06/18/2020 This 85-year-old gentleman was admitted with significant anorexia, weakness, also had some proximal myopathy. The patient being closely monitored. No chest pain. No palpitations. No fever. Bone scan did not show acute abnormality. Patient is also evaluated for proteinuria at this time. C-reactive protein is elevated to 216. TSH is 1.80. Rheumatoid factor was 10. No chest pain. No palpitations. No fever. PHYSICAL EXAMINATION: Alert and oriented times three. Pulse is 86. Blood pressure 121/55, respirations 16, temperature 98.2, pulse ox 94% on room air. HEENT: Conjunctivae normal. NECK: No JVD. CARDIOVASCULAR: S1, S2 muffled. RESPIRATORY: Breath sounds diminished in the bases. Scattered rhonchi and crackles. ABDOMEN: Soft. Nontender. LEGS are no edema. No swelling. NERVOUS SYSTEM: No focal deficits. LABS: WBC 16.1, sodium 134. Other labs are noted. ASSESSMENT: 1. Weakness and wasting for evaluation, rule out multiple myeloma. 2. Rule out proximal myopathy and paraneoplastic syndrome. 3. Rule out collagen vascular disorders. 4. Increased WBC, possibly secondary to urinary tract infection. 5. Acute urinary tract infection present on admission. 6. Hyponatremia. 7. Hyperkalemia. 8. Decreased CO2 with possible mild metabolic acidosis. 9. Hypomagnesemia. 10.Hypoalbuminemia with severe protein calorie malnutrition with body mass index of 20.2. 11.History of asthma. 12.Hyperlipidemia. 13.History of prostate disorder. 14.History of hiatal hernia. 15.History of hemorrhoids. 16.History of sarcoidosis. 17.History of enlarged prostate. 18.History of allergic rhinitis. 19.History of degenerative joint disease. 20.History of cholelithiasis. 21.Sinus tachycardia. 22.FULL CODE. RECOMMENDATIONS AND DISCUSSION: I recommend to continue current medications, continue to monitor, symptomatic treatment. Otherwise, at this time, I recommend continue with current labs. 24 hour protein. Otherwise, bone scan is negative for any malignancy at this time. Symptomatic treatment with Reglan. Endoscopy has been done previously per Dr. Tafoya. Serum protein electrophoresis has been requested. PSA is only 2.2. The prognosis is guarded. Further recommendations to follow. MMODL / IJN: [id number] / [facility]
[2020-06-18] MEDS: methylPREDNISolone SOD SUCCI 125 MG/2 ML VIAL IV SCH ×2 (18:11→23:34)
[2020-06-18] MEDS: MONTELUKAST 10 MG TAB PO SCH (20:13)
[2020-06-18] MEDS: ATORVASTATIN 10 MG TAB PO SCH (20:13)
--- NOTE | 2020-06-18 22:20 | P.CONS ---
History of Present Illness - Reason for Consult Consult date: 06/17/20 Weight loss Requesting physician: Evon Quiñonez - Chief Complaint Weight loss - History of Present Illness 85-year-old male with multiple medical comorbidities including asthma, hiatal hernia, sarcoidosis, hyperlipidemia and BPH who was recently hospitalized with GI bleed who presented back due to weight loss. The patient reports losing approximately 20 pounds in the past few months. He reports decreased oral intake. He denies any abdominal pain, nausea or vomiting as the reason for his weight loss. He reports he just does not feel like eating, he points out one reason is the pain that he experiences in his legs. He was seen in 12/2019 for GI bleed and underwent EGD and colonoscopy with EGD significant for a large hiatal hernia with J-shaped stomach and colonoscopy significant for diverticulosis, polypectomy and hemorrhoids. Patient denies any further GI bleeding. Laboratory evaluation on presentation significant for hemoglobin 13.1, platelet count 654,000, the VBC 23, total bilirubin 1.1, alkaline phosphatase 136, AST [address] scan chest/abdomen and pelvis negative for findings to explain weight loss. Review of Systems REVIEW OF SYSTEMS: CONSTITUTIONAL: Denies any fevers, chills, fatigue but does report 20 poundight loss. CARDIOVASCULAR: Denies any chest pain, palpitations high or low blood pressures RESPIRATORY: Denies any shortness of breath, hemoptysis or cough. GENITOURINARY: No dysuria or hematuria. MUSCULOSKELETAL: No weakness reported, leg pain. SKIN: Denies any new rashes or lesions, jaundice or pallor. PSYCHIATRIC: Denies any depression or anxiety. NEUROLOGY: Denies headache, denies any new focal deficits. EARS/NOSE/THROAT: No recent hearing change, congestion, nasal discharge or sore throat. EYES: No pain in eyes, discharge or change in vision. GASTROINTESTINAL: As per HPI. Past Medical History Past Medical History: Asthma, Hyperlipidemia, Prostate Disorder Additional Past Medical History / Comment(s): Hiatal hernia, hemorrhoids, SARCOIDOSIS,enlarged prostate, allergic rhinitis History of Any Multi-Drug Resistant Organisms: None Reported Past Surgical History: Appendectomy, Orthopedic Surgery, Prostate Surgery Additional Past Surgical History / Comment(s): RT ROTATOR CUFF, LYMPH NODE BX , TURP Past Anesthesia/Blood Transfusion Reactions: No Reported Reaction Past Psychological History: No Psychological Hx Reported Smoking Status: Never smoker Past Alcohol Use History: None Reported Past Drug Use History: None Reported - Past Family History Mother Family Medical History: No Reported History Father Family Medical History: No Reported History Medications and Allergies Home Medications Medication Instructions Recorded Confirmed Type Albuterol Sulfate [Proair Hfa] 2 puff INHALATION RT-QID PRN 04/08/14 06/16/20 History Fluticasone/Salmeterol [Advair 2 puff INHALATION RT-BID 04/08/14 06/16/20 History 100-50 Diskus] Ferrous Sulfate [Iron (65 MG 325 mg PO DAILY 07/31/16 06/16/20 History Elemental)] Simvastatin [Zocor] 20 mg PO HS 12/31/19 06/16/20 History Fluticasone Nasal [place] [Flonase 1 spr EA NOSTRIL DAILY 06/16/20 06/16/20 History Nasal [place]] Megestrol [Megace] 400 mg PO DAILY 06/16/20 06/16/20 History Melatonin Unknown Dose Gummy 1 tab PO HS 06/16/20 06/16/20 History Metoprolol Tartrate [Lopressor] 25 mg PO BID 06/16/20 06/16/20 History Montelukast [Singulair] 10 mg PO HS 06/16/20 06/16/20 History Multivitamins, Thera [Multivitamin 1 tab PO DAILY 06/16/20 06/16/20 History (formulary)] Allergies Allergy/AdvReac Type Severity Reaction Status Date / Time No Known Allergies Allergy Verified 06/16/20 10:34 Physical Exam Vitals: Vital Signs Temp Pulse Pulse Resp BP BP Pulse Ox 06/17/20 08:36 80 06/17/20 08:27 76 06/17/20 07:00 98.7 F 99 16 127/75 97 06/17/20 01:40 98.3 F 85 16 111/69 96 06/16/20 19:50 97.8 F 101 H 16 122/73 97 06/16/20 16:00 60 16 06/16/20 13:48 97.8 F 60 16 128/75 99 06/16/20 13:24 97 18 120/71 97 06/16/20 09:50 98.4 F 123 H 18 139/84 98 Intake and Output 06/16/20 06/17/20 06/17/20 22:59 06:59 14:59 Intake Total 780 800 Balance 780 800 Intake: Intake, IV Titration 300 800 Amount Sodium Chloride 0.9% 1, 300 800 000 ml @ 100 mls/hr IV . Q10H [facility] Rx#:[id number] Oral 480 Other: Voiding Method Toilet Toilet Urinal Urinal # Voids 1 3 On physical examination, patient appears comfortable in no apparent distress. HEAD: Normocephalic, atraumatic. EYES: No scleral icterus. No conjunctival injection. MOUTH: No lesions, tongue midline. NECK: Trachea midline, no gross abnormalities. CHEST: Clear to auscultation with no wheezing or rhonchi appreciated. HEART: S1-S2 appreciated. ABDOMEN: Soft, nontender to palpation. Bowel sounds are positive. No organomegaly. No guarding or rigidity. EXTREMITIES: No pedal edema. SKIN: No rashes, no jaundice. NEUROLOGIC: Alert and oriented x3. No focal deficits. Results CBC & Chem 7: 06/18/20 07:23 06/17/20 06:57 Labs: Abnormal Lab Results - Last 24 Hours (Table) 06/16/20 06/16/20 06/16/20 Range/Units 10:45 10:45 10:45 WBC 23.3 H (3.8-10.6) k/uL MCHC 30.9 L (31.0-37.0) g/dL Plt Count 684 H (150-450) k/uL Neutrophils # 20.3 H (1.3-7.7) k/uL Monocytes # 1.4 H (0-1.0) k/uL ESR (0-15) mm/hr INR (<1.2) Sodium 134 L (137-145) mmol/L Potassium 5.2 H (3.5-5.1) mmol/L Carbon Dioxide 18 L (22-30) mmol/L Creatinine 0.64 L (0.66-1.25) mg/dL Glucose 169 H (74-99) mg/dL Calcium (8.4-10.2) mg/dL Magnesium 2.5 H (1.6-2.3) mg/dL Alkaline Phosphatase 144 H (38-126) U/L Creatine Kinase 50 L (55-170) U/L C-Reactive Protein (<10.0) mg/L Total Protein (6.3-8.2) g/dL Total Protein (PEP) (6.2-8.2) g/dL Albumin 2.8 L (3.5-5.0) g/dL Procalcitonin (0.02-0.09) ng/mL Urine Protein 1+ H (Negative) Urine Glucose (UA) 1+ H (Negative) Urine Ketones 2+ H (Negative) Urine WBC 6 H (0-5) /hpf Urine Bacteria Rare H (None) /hpf Urine Mucus Many H (None) /hpf 06/16/20 06/16/20 06/16/20 Range/Units 12:35 22:02 22:02 WBC (3.8-10.6) k/uL MCHC (31.0-37.0) g/dL Plt Count (150-450) k/uL Neutrophils # (1.3-7.7) k/uL Monocytes # (0-1.0) k/uL ESR (0-15) mm/hr INR 1.2 H (<1.2) Sodium (137-145) mmol/L Potassium (3.5-5.1) mmol/L Carbon Dioxide (22-30) mmol/L Creatinine (0.66-1.25) mg/dL Glucose (74-99) mg/dL Calcium (8.4-10.2) mg/dL Magnesium (1.6-2.3) mg/dL Alkaline Phosphatase (38-126) U/L Creatine Kinase (55-170) U/L C-Reactive Protein (<10.0) mg/L Total Protein (6.3-8.2) g/dL Total Protein (PEP) 5.4 L (6.2-8.2) g/dL Albumin (3.5-5.0) g/dL Procalcitonin 0.35 H (0.02-0.09) ng/mL Urine Protein (Negative) Urine Glucose (UA) (Negative) Urine Ketones (Negative) Urine WBC (0-5) /hpf Urine Bacteria (None) /hpf Urine Mucus (None) /hpf 06/17/20 06/17/20 06/17/20 Range/Units 01:30 06:57 06:57 WBC (3.8-10.6) k/uL MCHC (31.0-37.0) g/dL Plt Count (150-450) k/uL Neutrophils # (1.3-7.7) k/uL Monocytes # (0-1.0) k/uL ESR 91 H (0-15) mm/hr INR (<1.2) Sodium 134 L (137-145) mmol/L Potassium (3.5-5.1) mmol/L Carbon Dioxide 20 L (22-30) mmol/L Creatinine 0.59 L (0.66-1.25) mg/dL Glucose 122 H (74-99) mg/dL Calcium 7.6 L (8.4-10.2) mg/dL Magnesium (1.6-2.3) mg/dL Alkaline Phosphatase 136 H (38-126) U/L Creatine Kinase <20 L (55-170) U/L C-Reactive Protein 216.0 H (<10.0) mg/L Total Protein 5.2 L (6.3-8.2) g/dL Total Protein (PEP) (6.2-8.2) g/dL Albumin 2.2 L (3.5-5.0) g/dL Procalcitonin (0.02-0.09) ng/mL Urine Protein Trace H (Negative) Urine Glucose (UA) 1+ H (Negative) Urine Ketones 1+ H (Negative) Urine WBC (0-5) /hpf Urine Bacteria (None) /hpf Urine Mucus (None) /hpf CT scan - abdomen: report reviewed (CT scan negative for any findings which could explain weight loss.) Assessment and Plan (1) Unintentional weight loss Narrative/Plan: 85-year-old male presents to the hospital with complaints of unintentional weight loss approximately 20 pounds, patient has multiple medical comorbidities and was admitted in December of this year for GI bleed with EGD significant for large hiatal hernia and J-shaped stomach and colonoscopy significant for polypectomy, diverticulosis and hemorrhoids. Denies any signs or symptoms of GI bleeding at this time. At this time is reporting that decreased oral intake is not related to nausea or vomiting, G but instead he feels is in part due to the pain he experiences in his legs. Computed tomography scan of the chestabdomen and pelvis negative for anyfindings which could explain unintentional weight loss. Current Visit: Yes Status: Acute Code(s): R63.4 - ABNORMAL WEIGHT LOSS SNOMED Code(s): 934989835 (2) Diverticulosis Current Visit: Yes Status: Acute Code(s): K57.90 - DVRTCLOS OF INTEST, PART UNSP, W/O PERF OR ABSCESS W/O BLEED SNOMED Code(s): 111670087 (3) Hiatal hernia Current Visit: Yes Status: Acute Code(s): K44.9 - DIAPHRAGMATIC HERNIA WITHOUT OBSTRUCTION OR GANGRENE SNOMED Code(s): 11222439 Plan: supportive care Okay for diet as tolerated Megestrol added by primary team continue Protonix therapy No plan for endoscopic evaluation at this time, EGD and colonoscopy performed in 12/2019 with findings as stated above Can consider addition of appetite stimulant such as Remeron if patient continues to reportdecreased appetite May benefit from pain management as he reports that pain in legs is the reason he has not been eating Thank you for allowing us to participate in the care of the patient
--- NOTE | 2020-06-18 22:23 | P.PN ---
Subjective Progress Note Date: 06/18/20 Principal diagnosis: hiatal hernia, diverticulosis,colonic polyps status post polypectomy, unintentional weight loss patient is seen lying in bed at this time with no acute complaints. He did eat breakfastreports for oral intake. No nausea vomiting reported. Objective - Vital Signs Vital signs: Vital Signs Temp 97.8 F 06/18/20 07:00 Pulse 72 06/18/20 07:39 Resp 19 06/18/20 07:45 BP 119/69 06/18/20 07:00 Pulse Ox 95 06/18/20 07:00 Intake & Output 06/17/20 06/18/20 06/18/20 18:59 06:59 18:59 Intake Total 1100 Balance 1100 Weight 70.307 kg Intake: Intake, IV Titration 1100 Amount Sodium Chloride 0.9% 1, 1100 000 ml @ 100 mls/hr IV . Q10H [facility] Rx#:[id number] Other: Voiding Method Toilet Toilet Toilet Urinal Urinal Urinal # Voids 3 4 - Exam On physical examination, patient appears comfortable in no apparent distress. HEAD: Normocephalic, atraumatic. EYES: No scleral icterus. No conjunctival injection. MOUTH: No lesions, tongue midline. NECK: Trachea midline, no gross abnormalities. ABDOMEN: Soft, thin and nontender to palpation. Bowel sounds are positive. No organomegaly. No guarding or rigidity. EXTREMITIES: No pedal edema. SKIN: No rashes, no jaundice. NEUROLOGIC: Alert and oriented x3. No focal deficits. - Labs CBC & Chem 7: 06/18/20 07:23 06/17/20 06:57 Labs: Abnormal Lab Results - Last 24 Hours (Table) 06/18/20 Range/Units 07:23 WBC 16.1 H (3.8-10.6) k/uL Hgb 11.7 L (13.0-17.5) gm/dL MCHC 29.7 L (31.0-37.0) g/dL Plt Count 653 H (150-450) k/uL Neutrophils # 13.2 H (1.3-7.7) k/uL Microbiology - Last 24 Hours (Table) 06/17/20 00:44 Blood Culture - Preliminary Blood No Growth after 24 hours 06/17/20 01:30 Urine Culture - Preliminary Urine,Voided Assessment and Plan (1) Unintentional weight loss Narrative/Plan: 85-year-old male presents to the hospital with complaints of unintentional weight loss approximately 20 pounds, patient has multiple medical comorbidities and was admitted in December of this year for GI bleed with EGD significant for large hiatal hernia and J-shaped stomach and colonoscopy significant for polypectomy, diverticulosis and hemorrhoids. Denies any signs or symptoms of GI bleeding at this time. At this time is reporting that decreased oral intake is not related to nausea or vomiting, G but instead he feels is in part due to the pain he experiences in his legs. Computed tomography scan of the chestabdomen and pelvis negative for anyfindings which could explain unintentional weight loss. Current Visit: Yes Status: Acute Code(s): R63.4 - ABNORMAL WEIGHT LOSS SNOMED Code(s): 683864654 (2) Diverticulosis Current Visit: Yes Status: Acute Code(s): K57.90 - DVRTCLOS OF INTEST, PART UNSP, W/O PERF OR ABSCESS W/O BLEED SNOMED Code(s): 223626888 (3) Hiatal hernia Current Visit: Yes Status: Acute Code(s): K44.9 - DIAPHRAGMATIC HERNIA WITHOUT OBSTRUCTION OR GANGRENE SNOMED Code(s): 49248048 Plan: supportive care Okay for diet as tolerated Megestrol added by primary team continue Protonix therapy No plan for endoscopic evaluation at this time, EGD and colonoscopy performed in 12/2019 with findings as stated above Can consider addition of appetite stimulant such as Remeron if patient continues to reportdecreased appetite consult to dietitian placed May benefit from pain management as he reports that pain in legs is the reason he has not been eating Thank you for allowing us to participate in the care of the patient
[2020-06-19 01:57] LABS: Total Volume 24 Hour,Urine 1625 mls (250-2400)
[2020-06-19 02:16] LABS: Total Protein 24 Hour,Urine 211 mg/24hr (42.0-225.0)
[2020-06-19] MEDS: ALBUTEROL NEBULIZED 2.5 MG/3 ML INHALATION PRN (07:51)
[2020-06-19] MEDS: SYMBICORT 80-4.5 MCG INHALER INHALATION SCH (07:51)
[2020-06-19 08:32] VITALS: BP 106/65; PULSE 65; RESP 17; TEMP 97.9
[2020-06-19] MEDS: METOPROLOL TARTRATE 25 MG TAB PO SCH (08:41)
[2020-06-19] MEDS: MULTIVITAMINS, THERA 1 EACH TAB PO SCH (08:41)
[2020-06-19] MEDS: PANTOPRAZOLE 40 MG/10 ML VIAL IVP SCH (08:41)
[2020-06-19] MEDS: FERROUS SULFATE 325 MG TAB PO SCH (08:42)
[2020-06-19] MEDS: METOCLOPRAMIDE 5 MG/ML 2 ML VIAL IVP SCH (08:42)
[2020-06-19] MEDS: methylPREDNISolone SOD SUCCI 125 MG/2 ML VIAL IV SCH (08:42)
[2020-06-19] MEDS: HEPARIN SODIUM,PORCINE 5,000 UNIT/ML 1 ML VIAL SQ SCH (08:42)
[2020-06-19] MEDS: MEGESTROL 400 MG/10 ML CUP PO SCH (08:42)
[2020-06-19] MEDS: FLUTICASONE 50MCG/SPRAY NASAL 16GM EA NOSTRIL SCH (08:43)
--- NOTE | 2020-06-19 12:09 | P.PN ---
Subjective Progress Note Date: 06/19/20 Principal diagnosis: Generalized weakness, weight loss This is an 85-year-old male patient who has been followed up in our office and the patient is a combination of medical problems including questionable history of sarcoidosis, diverticulosis of the colon, history of benign prostatic hypertrophy with outflow obstruction, mild asthma, hyperlipidemia and ALLERGIC rhinitis. More recently, the patient was noted to have some weight loss. For that reason, the patient was given 100 mg on a daily basis. The chest x-ray also done in the office showed a large hiatal hernia. The patient presented to the emergency department today with weight loss, poor appetite and insomnia. This been going on for quite some time. He had significant weight loss according to him he has lost approximately 20 pounds and he has been eating and his getting progressively more weak. No chest pain. No shortness of breath. No nausea. No vomiting. No abdominal pain. He complains of lower extremity pain and tingling. No GI bleeding. No headache. No altered mentation. No fever. No chills. Chest x-ray shows a large hiatal hernia and a white cell count was elevated at 23 with a hemoglobin of 13.1 and a platelet count of 654. He had a serum bicarb of 18 with a potassium level of 5.2 and a sodium level of 134. Renal function was normal. The coagulation profile was within normal. UA showed +1 protein, +1 glucose, +2 ketones and 6 WBCs. He is serum protein is down to 2.8 with a total protein level of 6.3. His lactic acid level was normal at 1.3. Calcium level was at 8.4.The patient was in the hospital back in December 2019 for GI bleed. He was taking Aleve. He came in for dark red blood stool and he underwent EGD and colonoscopy. EGD showed hiatal hernia and mild antral gastritis. Colonoscopy revealed ascending colon polyp and proximal transverse colonic polyp and the patient underwent polypectomy. He had diffuse diverticulosis. He was discharged home. The patient is seen today 06/17/2020 in follow-up on the regular medical floor. He is currently resting comfortably in bed. Awake and alert in no acute distress. Maintaining O2 saturations in the mid 90s on room air. He's been afebrile. Hemodynamically stable. Urine culture pending. Sodium 134. Pota ssium 4.5. Creatinine 0.59. AST 41. ALT 33. Alk phos 136. Chronic rhinitis less than 20. C-reactive protein 216. TSH 1.18. Peripheral pulses 1 and 0.35. Rheumatoid factor 10. ESR 91. His 0.9 normal saline at 100 ML's per hour. On empiric anti-medics in the form of ceftriaxone. Continued on Symbicort and albuterol. Computed tomography scan of the chest abdomen and pelvis revealed no suspicious etiology to account for weight loss. Diverticulosis without acute diverticulitis. Spondylolysis of L5. Cholelithiasis. Large diaphragmatic hernia posterior mediastinum containing the stomach stable from comparison. Computed tomography scan of the brain revealed mild chronic changes of chronic small vessel vascular disease. No acute intracranial abnormality seen. The patient is seen today 06/18/2020 in follow-up on the regular medical floor. He is resting quite comfortably in bed. No shortness of breath, cough or congestion. Maintaining O2 saturation the mid 90s on room air. He is afebrile. Hemodynamically stable. Blood and urine cultures reveal no growth. White count 16.1. Hemoglobin 11.7. Platelet count 653. Bone scan revealed scattered degenerative tracer activity particularly at the shoulders and left greater than right knees. No evidence of osseous metastatic disease. On 06/19/2020 patient seen in follow-up on a general medical surgical floor. he is resting comfortably in bed, he states his appetite has improved some, he denies any specific complaints. Last week when he was seen by Dr. Vargas in the office patient was complaining of significant generalized aches and pains, and Dr. Vargas started patient on IV steroids based on his elevated inflammatory markers including sed rate and CRP suggesting possibility of a connective tissue disorder. Patient on today's exam states that his aches have improved in his knees. No altered mentation no complaints of shortness of breath, room air pulse ox 94%, patient is afebrile, hemodynamically stable. He remains on IV 0.9 normal saline at a rate of 100 ML per hour. Objective - Vital Signs Vital signs: Vital Signs Temp 97.9 F 06/19/20 07:00 Pulse 85 06/19/20 08:02 Resp 17 06/19/20 07:00 BP 106/65 06/19/20 07:00 Pulse Ox 94 L 06/19/20 07:00 Intake & Output 06/18/20 06/19/20 06/19/20 18:59 06:59 18:59 Intake Total 300 Output Total 100 800 Balance -100 -500 Intake: Intake, IV Titration 300 Amount Sodium Chloride 0.9% 1, 300 000 ml @ 100 mls/hr IV . Q10H [facility] Rx#:[id number] Output: Urine 100 800 Other: Voiding Method Toilet Toilet Urinal Urinal - Exam GENERAL EXAM: Alert, very pleasant, 85-year-old white male, on room air, with a pulse ox of 94%, comfortable in no apparent distress. HEAD: Normocephalic/atraumatic. EYES: Normal reaction of pupils, equal size. Conjunctiva pink, sclera white. NOSE: Clear with pink turbinates. THROAT: No erythema or exudates. NECK: No masses, no JVD, no thyroid enlargement, no adenopathy. CHEST: No chest wall deformity. Symmetrical expansion. LUNGS: Equal air entry with no crackles, wheeze, rhonchi or dullness. CVS: Regular rate and rhythm, normal S1 and S2, no gallops, no murmurs, no rubs ABDOMEN: Soft, nontender. No hepatosplenomegaly, normal bowel sounds, no guarding or rigidity. EXTREMITIES: No clubbing, no edema, no cyanosis, 2+ pulses and upper and lower extremities. MUSCULOSKELETAL: Muscle strength and tone normal. SPINE: No scoliosis or deformity SKIN: No rashes CENTRAL NERVOUS SYSTEM: Alert and oriented -3. No focal deficits, tone is normal in all 4 extremities. PSYCHIATRIC: Alert and oriented -3. Appropriate affect. Intact judgment and insight. - Labs CBC & Chem 7: 06/18/20 07:23 06/17/20 06:57 Labs: Microbiology - Last 24 Hours (Table) 06/17/20 00:44 Blood Culture - Preliminary Blood No Growth after 48 hours 06/17/20 01:30 Urine Culture - Final Urine,Voided Assessment and Plan Plan: Assessment: 1 unexplained weight loss in addition to loss of appetite and skeletal body aches, rule out paraneoplastic 2 hypoalbuminemia, with inverted albumin to globulin ratio, consider multiple myeloma 3 leukocytosis, unexplained, doubt infectious 4 large hiatal hernia 5 recent hospitalization for GI bleed 6 diverticulosis with tubulovillous adenoma based on a colonoscopy that was done a few months back 7 mild intermittent bronchial asthma 8 questionable history of sarcoidosis and this is remote history and there is no evidence of any ongoing active sarcoidosis for now 9 benign prostatic hypertrophy post TURP 10. ALLERGIC rhinitis 11 elevated ESR and CRP, possibility of connective tissue disorder is being considered, and patient was started on IV steroids Plan: Patient can be switched to oral steroids, from pulmonary perspective patient came in considered for discharge home today, he can go home on oral prednisone starting at 30 mg daily until she sees Dr. Vargas in the office next week. There is a possibility patient may have underlying connective tissue disorder. Bone scan was negative for any malignancy at this time. I performed a history & physical examination of the patient and discussed their management with my nurse practitioner, Emilie Fields. I reviewed the nurse practitioner's note and agree with the documented findings and plan of care. Lung sounds are positive for clear breath sounds. The findings and the impression was discussed with the patient. I attest to the documentation by the nurse practitioner. Time with Patient: Less than 30
[2020-06-19 12:25] LABS: Basophils % (A) 0 %; Eosinophils % (A) 0 %; HCT 38.6 % (39.0-53.0); HGB 11.5 gm/dL (13.0-17.5); Hypochromasia Moderate; Lymphocytes # (A) 0.7 k/uL (1.0-4.8); Lymphocytes % (A) 7 %; MCH 25.8 pg (25.0-35.0); MCHC 29.7 g/dL (31.0-37.0); Mean Platelet Volume 7.2; Monocytes # (A) 0.4 k/uL (0-1.0); Monocytes % (A) 4 %; Neutrophils # (A) 8.4 k/uL (1.3-7.7); Neutrophils % (A) 87 %; Platelet Count 565 k/uL (150-450); RBC 4.44 m/uL (4.30-5.90); WBC 9.6 k/uL (3.8-10.6)
--- NOTE | 2020-06-19 14:56 | P.PN ---
Subjective Progress Note Date: 06/19/20 Principal diagnosis: hiatal hernia, diverticulosis,colonic polyps status post polypectomy, unintentional weight loss She was seen and examined at the bedside. He appears comfortable in no acute distress. He states he ate a good breakfast other than not finishing half of his banana. He denies any abdominal pain, nausea, or vomiting. He denies difficulty with swallowing or any choking sensation. He states he feels like he can only eat small amounts before he is feeling that he is full. He reports losing approximately 20 pounds in the past couple months. Objective - Vital Signs Vital signs: Vital Signs Temp 97.9 F 06/19/20 07:00 Pulse 85 06/19/20 08:02 Resp 17 06/19/20 07:00 BP 106/65 06/19/20 07:00 Pulse Ox 94 L 06/19/20 07:00 Intake & Output 06/18/20 06/19/20 06/19/20 18:59 06:59 18:59 Intake Total 300 Output Total 100 800 Balance -100 -500 Intake: Intake, IV Titration 300 Amount Sodium Chloride 0.9% 1, 300 000 ml @ 100 mls/hr IV . Q10H [facility] Rx#:[id number] Output: Urine 100 800 Other: Voiding Method Toilet Toilet Urinal Urinal - Exam General appearance: The patient is alert, oriented, appears comfortable and in no acute distress. HET: Head is normocephalic and atraumatic. Neck: Supple Heart: S1 S2. Regular rate and rhythm. Lungs: No crackles or wheezes are heard. Abdomen: Soft, nontender, nondistended with bowel sounds. No peritoneal signs. No guarding or rigidity. Extremities: Normal skin color and turgor. No edema bilaterally. Neurological: No focal deficits. - Labs CBC & Chem 7: 06/19/20 11:41 06/17/20 06:57 Labs: Abnormal Lab Results - Last 24 Hours (Table) 06/19/20 Range/Units 11:41 Hgb 11.5 L (13.0-17.5) gm/dL Hct 38.6 L (39.0-53.0) % MCHC 29.7 L (31.0-37.0) g/dL Plt Count 565 H (150-450) k/uL Neutrophils # 8.4 H (1.3-7.7) k/uL Lymphocytes # 0.7 L (1.0-4.8) k/uL Microbiology - Last 24 Hours (Table) 06/17/20 00:44 Blood Culture - Preliminary Blood No Growth after 48 hours 06/17/20 01:30 Urine Culture - Final Urine,Voided Assessment and Plan Assessment: (1) Unintentional weight loss Narrative/Plan: 85-year-old male presents to the hospital with complaints of unintentional weight loss approximately 20 pounds, patient has multiple medical comorbidities and was admitted in December of this year for GI bleed with EGD significant for large hiatal hernia and J-shaped stomach and colonoscopy significant for polypectomy, diverticulosis and hemorrhoids. Denies any signs or symptoms of GI bleeding at this time. At this time is reporting that decreased oral intake is not related to nausea or vomiting, G but instead he feels is in part due to the pain he experiences in his legs. Computed tomography scan of the chestabdomen and pelvis negative for anyfindings which could explain unintentional weight loss. Current Visit: Yes Status: Acute Code(s): R63.4 - ABNORMAL WEIGHT LOSS SNOMED Code(s): 668377667 (2) Diverticulosis Current Visit: Yes Status: Acute Code(s): K57.90 - DVRTCLOS OF INTEST, PART UNSP, W/O PERF OR ABSCESS W/O BLEED SNOMED Code(s): 889647044 (3) Hiatal hernia Current Visit: Yes Status: Acute Code(s): K44.9 - DIAPHRAGMATIC HERNIA WITHOUT OBSTRUCTION OR GANGRENE SNOMED Code(s): 30706124 (1) Early satiety Narrative/Plan: Discussed with patient would recommend follow-up with Dr. Tafoya for an outpatient EGD to further investigate early satiety and unintentional weight loss. Last EGD/colonoscopy was December 2019 which revealed a small hiatal hernia with a J-shaped stomach and mild antral gastritis. Colonoscopy revealed diffuse left-sided diverticulosis, ascending colon polyp and proximal transverse colon polyp status post polypectomy and mild external hemorrhoids. Status: Acute Code(s): R68.81 - EARLY SATIETY SNOMED Code(s): 359340159 Plan: supportive care Okay for diet as tolerated Megestrol added by primary team continue Protonix therapy Recommend EGD as an outpatient for further investigation into early satiety and weight loss Can consider addition of appetite stimulant such as Remeron if patient continues to report decreased appetite consult to dietitian placed May benefit from pain management as he reports that pain in legs is the reason he has not been eating Thank you for allowing us to participate in the care of the patient The impression and plan of care has been dictated as directed. Dr. Vishnu Jones I performed a history and examination of this patient, discussed the same with the dictator. I agree with the dictator's note ,documented as a scribe. Any additional findings or plans will be noted.
--- NOTE | 2020-06-20 08:36 | P.DS ---
Providers Date of admission: 06/16/20 12:41 Expected date of discharge: 06/19/20 Attending physician: Evon Quiñonez Consults: 06/16/20 12:42 Consult Physician Routine Consulting Provider: Mitesh Chris Consult Reason/Comments: weakness, Do you want consulting provider notified?: Yes 06/17/20 01:09 Consult Physician Routine Consulting Provider: Sanjuana Jones Consult Reason/Comments: weight loss Do you want consulting provider notified?: Yes, Notify in am Primary care physician: Mitesh Chris [facility] Course: Final diagnosis Weakness and wasting for evaluation, rule out multiple myeloma Rule out proximal myopathy and paraneoplastic syndrome Rule out collagen vascular disorders Increased WBC, possibly secondary to urinary tract infection Acute urinary tract infection, present on admission Hyponatremia hyperkalemia Decreased CO2 with possible mild metabolic acidosis hypomagnesemia Hypoalbuminemia with severe protein calorie malnutrition the BMI of 22.2 History of asthma Hyperlipidemia History of prostate cancer disorder History of hiatal hernia History of hemorrhoids history of sarcoidosis History of enlarged prostate History of ALLERGIC rhinitis History of degenerative joint disease History of cholelithiasis Sinus tachycardia Full code Discharge disposition Patient is being discharged in a stable condition with guarded prognosis to home. Patient will follow-up with Dr. Chris in the outpatient setting upon discharge. Patient also instructed to follow-up with Dr. Michelet COATES in the outpatient setting in 2-3 weeks. Patient is to continue with short course of oral antibiotics in the form of Ceftin 500 mg twice daily for the next 3 days to complete the course along with a prednisone taper. Continue on Protonix along with Reglan until GI follow-up. Total time taken is greater than 35 minutes. History of present illness This is a 85-year-old male who was recently admitted with significant anorexia, weakness, also had some proximal myopathy and was being closely monitored. Pulmonary along with GI following. Patient states he has been losing weight in the amount of up to 20 pounds most recently and has a decrease in appetite and feeling of fullness without completing meals. Patient was seen and evaluated by GI recommending outpatient follow-up for repeat EGD in the near future. Patient was given Reglan with meals and has been tolerating diet. Patient also given a prescription for Remeron if decrease in appetite continues per GI recommendations. Patient will continue on Protonix until GI follow-up. Patient also was continued on oral Ceftin 500 mg twice daily for the next 3 days to complete the course. Patient will continue with the prednisone taper upon discharge and will be following up with Dr. Chris in one week as scheduled. Patient continues to have a lateral lower extremity discomfort and will be following up in the outpatient setting. Currently no reports of chest pain, shortness of breath, or palpitations. Patient is afebrile. No reports of nausea or vomiting and patient is tolerating diet. Patient will be discharged home today. Guarded prognosis. On exam vital signs are stable. Temp is 97.9F, pulse is 65, respirations are 17, blood pressure is 106/65, oxygen saturation is 94% on room air. Cardio S1, S2 are muffled. Respiratory system shows diminished breath sounds at the bases with no wheezing or rhonchi noted. Abdomen is soft and nontender. Nervous system shows no focal deficits. Please refer to medication reconciliation sheet for a list of medications. Patient Condition at Discharge: Stable Plan - Discharge Summary New Discharge Prescriptions: New Cefuroxime Axetil [Ceftin] 500 mg PO BID 3 Days #6 tab predniSONE 10 mg PO DIRECTED #30 tab Pantoprazole Sodium [Protonix] 40 mg PO BID 30 Days #60 tablet. Metoclopramide [Reglan] 5 mg PO TID #30 tab Mirtazapine [Remeron] 15 mg PO HS #14 tab Continue Fluticasone/Salmeterol [Advair 100-50 Diskus] 2 puff INHALATION RT-BID Albuterol Sulfate [Proair Hfa] 2 puff INHALATION RT-QID PRN PRN Reason: Shortness Of Breath Ferrous Sulfate [Iron (65 MG Elemental)] 325 mg PO DAILY Simvastatin [Zocor] 20 mg PO HS Fluticasone Nasal [place] [Flonase Nasal [place]] 1 spr EA NOSTRIL DAILY Multivitamins, Thera [Multivitamin (formulary)] 1 tab PO DAILY Megestrol [Megace] 400 mg PO DAILY Montelukast [Singulair] 10 mg PO HS Metoprolol Tartrate [Lopressor] 25 mg PO BID Melatonin Unknown Dose Gummy 1 tab PO HS Discharge Medication List Albuterol Sulfate [Proair Hfa] 2 puff INHALATION RT-QID PRN 04/08/14 [History] Fluticasone/Salmeterol [Advair 100-50 Diskus] 2 puff INHALATION RT-BID 04/08/14 [History] Ferrous Sulfate [Iron (65 MG Elemental)] 325 mg PO DAILY 07/31/16 [History] Simvastatin [Zocor] 20 mg PO HS 12/31/19 [History] Fluticasone Nasal [place] [Flonase Nasal [place]] 1 spr EA NOSTRIL DAILY 06/16/20 [History] Megestrol [Megace] 400 mg PO DAILY 06/16/20 [History] Melatonin Unknown Dose Gummy 1 tab PO HS 06/16/20 [History] Metoprolol Tartrate [Lopressor] 25 mg PO BID 06/16/20 [History] Montelukast [Singulair] 10 mg PO HS 06/16/20 [History] Multivitamins, Thera [Multivitamin (formulary)] 1 tab PO DAILY 06/16/20 [History] Cefuroxime Axetil [Ceftin] 500 mg PO BID 3 Days #6 tab 06/19/20 [Rx] Metoclopramide [Reglan] 5 mg PO TID #30 tab 06/19/20 [Rx] Mirtazapine [Remeron] 15 mg PO HS #14 tab 06/19/20 [Rx] Pantoprazole Sodium [Protonix] 40 mg PO BID 30 Days #60 tablet. 06/19/20 [Rx] predniSONE 10 mg PO DIRECTED #30 tab 06/19/20 [Rx] Follow up Appointment(s)/Referral(s): Mitesh Chris MD [Primary Care Provider] - 07/05/20 10:30 am Randell Tafoya MD [STAFF PHYSICIAN] - 07/11/20 11:00 am Patient Instructions/Handouts: Anorexia in Older Adults (GEN) Activity/Diet/Wound Care/Special Instructions: Activity Limited until follow-up Follow-up with primary care provider upon discharge Follow-up with GI in the outpatient setting upon discharge Continue with the prednisone taper Continue with antibiotics until finished Continue with Remeron once daily at bed Per GI recommendations until GI follow- up Continue current diet Continue with 6 small meals throughout the day Discharge Disposition: HOME SELF-CARE
[2020-06-20 13:58] LABS: Albumin 1.79 g/dL (3.80-4.90); Gamma Globulin 1.01 g/dL (0.70-1.50)
--- NOTE | 2020-06-21 12:35 | CDI ---
Documentation Clarification Form Date: 06/21/2020 11:16:06 AM From: Sanna Holt RN CCDS Admit Date: 06/16/2020 12:41:00 PM Patient Name: Dmitry Hernandez Visit Number: [id number] Discharge Date: 06/19/2020 02:08:00 PM ATTENTION: The Clinical Documentation Specialists (CDI) and [facility] Coding Staff appreciate your assistance in clarifying documentation. Please respond to the clarification below the line at the bottom and electronically sign. The CDI & [facility] Coding staff will review the response and follow-up if needed. Please note: Queries are made part of the Legal Health Record. If you have any questions, please contact the author of this message via ITS. Dr. Evon Quiñonez The patients principal diagnosis has not been clearly identified and requires clarification. History/Risk Factors: 85-year-old male presents to the ED with weight loss, poor appetite, insomnia and bilateral lower extremity pain for several weeks. Medical History: Asthma, HLD, Prostate, Hiatal Hernia, Sarcoidosis and enlarged prostate. Clinical Indicators: 06/16 Vital Signs: BP: 139/84; HR: 123; Temp: 98.4 F; RR: 18; SpO2 98% ra 06/13 Lab findings: Wbc 23.3; PLT 684; Neutrophils 20.3; Na 134; K 5.2; Cr 0.64; Mag 2.5, Alk Phos 144; Creatine Kinase 50; Albumin 2.8; Rheumatoid factor 10, MARKELL screen Neg. UA Wbc 6, Bacteria rare. 06/16 EKG; Sinus Tach Radiology findings: 06/16 CT Abd: Diverticulosis without acute diverticulitis; Spondylolysis of L5; Cholelithiasis; Large diaphragmatic hernia posterior mediastinum containing the stomach, stable from comparison. 06/17: Brain CT: Mild changes of chronic small vessel ischemic disease. 06/17 Bone Scan: Scattered degenerative tracer activity particularly at the shoulders and left greater than right knees. 06/19 Pulmonary PN: Last week when he was seen by Dr. Vargas in the office patient was complaining of significant generalized aches and pains, and Dr. Vargas started patient on IV steroids based on inflammatory markers including sed rate and CROP suggesting possibility of a connective tissue disorder. 06/19 GI PN: Assessment - Unintentional weight loss; Diverticulosis; Hiatal Hernia; Early Satiety Treatment: 06/16 Ceftraxone Iv; Protonix Iv; 0.9NS 1L bolus; 09ns 100cchr 06/17 Megace PO; 06/18 Reglan IV Consults: See above In your professional opinion, can you please clarify which diagnosis, after study, accounted for the patients presenting symptoms and was the reason chiefly responsible for the admission? Weakness and wasting due to (please specify) (Last Revision: January 2018) reduced po intake MTDD
== END 2020-06-19 14:08 | disposition home or self-care (01) | DRG 91 ==
LOC: EC 09:47 → 4SSUR 12:41
PROVIDERS: ADMIT Hospitalist; ATTEND Hospitalist
DX: G72.9 Myopathy, unspecified (principal); E43 Unspecified severe protein-calorie malnutrition; C90.00 Multiple myeloma not having achieved remission; N13.8 Other obstructive and reflux uropathy; N39.0 Urinary tract infection, site not specified; E87.1 Hypo-osmolality and hyponatremia; E87.2 Acidosis; E86.0 Dehydration; M35.9 Systemic involvement of connective tissue, unspecified; G13.0 Paraneoplastic neuromyopathy and neuropathy; G47.00 Insomnia, unspecified; M79.604 Pain in right leg; K44.9 Diaphragmatic hernia without obstruction or gangrene; E78.5 Hyperlipidemia, unspecified; K80.20 Calculus of gallbladder without cholecystitis without obstruction; J45.20 Mild intermittent asthma, uncomplicated; E87.5 Hyperkalemia; E83.41 Hypermagnesemia; R82.4 Acetonuria; M19.90 Unspecified osteoarthritis, unspecified site; J31.0 Chronic rhinitis; R32 Unspecified urinary incontinence; E83.42 Hypomagnesemia; M43.00 Spondylolysis, site unspecified; R68.81 Early satiety; K64.4 Residual hemorrhoidal skin tags; R00.0 Tachycardia, unspecified; N40.1 Benign prostatic hyperplasia with lower urinary tract symptoms; K57.30 Diverticulosis of large intestine without perforation or abscess without bleeding; D12.6 Benign neoplasm of colon, unspecified; M79.605 Pain in left leg; Z79.899 Other long term (current) drug therapy; Z90.89 Acquired absence of other organs; Z85.46 Personal history of malignant neoplasm of prostate; Z98.890 Other specified postprocedural states; Z87.19 Personal history of other diseases of the digestive system; Z68.22 Body mass index [BMI] 22.0-22.9, adult
CPT/HCPCS: 36415; 70450; 71046; 71260; 74177; 78306; 80053; 81001; 81003; 81050; 82164; 82550; 83605; 83735; 84145; 84153; 84156; 84165; 84443; 85025; 85610; 85652; 85730; 86038; 86140; 86334; 86335; 86431; 87040; 87086; 93005; 93306; 94640; 96361; 96374; 99285

== ENCOUNTER 2020-08-31 17:04 | Emergency (ER) | payer MEDICARE ==
[2020-08-31 17:10] VITALS: TEMP 97.4
[2020-08-31] MEDS ORDERED: LIDOCAINE 1% INJ 10MG/ML (20 ML MDV) SQ ONE (18:44)
[2020-08-31] MEDS ORDERED: BACITRACIN OINT 1 EACH PACKET TOPICAL ONE (18:44)
--- NOTE | 2020-08-31 18:51 | ED ---
Fall HPI - General Chief Complaint: Fall Stated Complaint: Fall, Facial Injury Time Seen by Provider: 08/31/20 18:29 Source: patient Mode of arrival: wheelchair - History of Present Illness Initial Comments: Patient is an 85-year-old male presenting to the emergency Department with complaints of a laceration on his face after falling about 3 hours prior to arrival. Patient states he was wheeling a wheelbarrow and tripped and fell forward hitting the lawnmower. Patient states he wears glasses and those were pushed into his face, cutting him on the right side of his nose. He denies being on blood thinners. He denies having a headache, no neck pain, no chest pain, no abdominal pain. Denies any nausea or vomiting. He denies any extremity pain. He states his tetanus vaccine is up-to-date. Patient states he is not dizzy. He has no further complaints at this time. Upon arrival to the ER his vital signs are stable. - Related Data Home Medications Medication Instructions Recorded Confirmed Albuterol Sulfate [Proair Hfa] 2 puff INHALATION RT-QID PRN 04/08/14 08/31/20 Ferrous Sulfate [Iron (65 MG 325 mg PO BID 07/31/16 08/31/20 Elemental)] Simvastatin [Zocor] 20 mg PO HS 12/31/19 08/31/20 Fluticasone Nasal [place] [Flonase 2 spray EA NOSTRIL BID 06/16/20 08/31/20 Nasal [place]] Megestrol [Megace] 400 mg PO DAILY 06/16/20 08/31/20 Metoprolol Tartrate [Lopressor] 50 mg PO DAILY 06/16/20 08/31/20 Metoprolol Tartrate [Lopressor] 25 mg PO HS 08/31/20 08/31/20 predniSONE 15 mg PO DAILY 08/31/20 08/31/20 Previous Rx's Medication Instructions Recorded Amoxicillin/Potassium Clav 1 tab PO BID 5 Days #10 tab 08/31/20 [Augmentin 875-125 Tablet] Allergies Allergy/AdvReac Type Severity Reaction Status Date / Time No Known Allergies Allergy Verified 08/31/20 20:25 Review of Systems ROS Statement: Those systems with pertinent positive or pertinent negative responses have been documented in the HPI. ROS Other: All systems not noted in ROS Statement are negative. Past Medical History Past Medical History: Asthma, Hyperlipidemia, Prostate Disorder Additional Past Medical History / Comment(s): Hiatal hernia, hemorrhoids, SARCOIDOSIS,enlarged prostate, allergic rhinitis History of Any Multi-Drug Resistant Organisms: None Reported Past Surgical History: Appendectomy, Orthopedic Surgery, Prostate Surgery Additional Past Surgical History / Comment(s): RT ROTATOR CUFF, LYMPH NODE BX , TURP Past Anesthesia/Blood Transfusion Reactions: No Reported Reaction Past Psychological History: No Psychological Hx Reported Smoking Status: Never smoker Past Alcohol Use History: None Reported Past Drug Use History: None Reported - Past Family History Mother Family Medical History: No Reported History Father Family Medical History: No Reported History General Exam - General Exam Comments Initial Comments: GENERAL: Patient is well-developed and well-nourished. Patient is nontoxic and in no acute distress. HEAD: Atraumatic, normocephalic. No hematomas, no signs of basal skull fracture. EYES: Pupils equal round and reactive to light, extraocular movements intact, sclera anicteric, conjunctiva are normal. Eyelids were unremarkable. Patient has a 2 cm laceration on the medial aspect of the right canthus that extends through the canthus towards the nasal bone. ENT: TMs normal, nares patent, oropharynx clear without exudates. Moist mucous membranes. Pain with palpation of the nasal bone NECK: Normal range of motion, supple without lymphadenopathy or JVD. LUNGS: Unlabored respirations. Breath sounds clear to auscultation bilaterally and equal. No wheezes rales or rhonchi. HEART: Regular rate and rhythm without murmurs, rubs or gallops. ABDOMEN: Soft, nontender, normoactive bowel sounds. No guarding, no rebound. No masses appreciated. : Deferred MUSCULOSKELETAL: Normal extremities with adequate strength and normal range of motion, no pitting or edema. No clubbing or cyanosis. NEUROLOGICAL: Patient is alert and oriented x 3. Motor and sensory are also intact. Cranial nerves II through XII grossly intact. Symmetrical smile. Normal speech, normal gait. PSYCH: Normal mood, normal affect. SKIN: Warm, Dry, normal turgor. Patient has a 2 cm laceration on the right side of his nasal bone near the medial canthus of his right eye extending down on the side of his nose. Bleeding is controlled this time. Patient also has a small 0.5 cm laceration on his nasal bridge. This bleeding is also controlled. Patient also has a minor skin tear to the right forearm, this requires no suturing, and bleeding is controlled this well. Limitations: no limitations Course Vital Signs 08/31/20 08/31/20 08/31/20 17:07 18:22 21:24 Temperature 97.4 F L Pulse Rate 112 H 89 Respiratory 18 18 16 Rate Blood Pressure 133/85 128/76 O2 Sat by Pulse 98 95 Oximetry Procedures - Laceration Laceration #1 Consent Obtained: verbal consent Indication: laceration Site: face (nasal bone) Size (cm): 0 (0.5cm) Description: linear Depth: simple, single layer Anesthetic Used: lidocaine 1% Anesthesia Technique: local infiltration Pre-repair: irrigated extensively Type of Sutures: nylon Size of Sutures: 5-0 Number of Sutures: 1 Technique: simple, interrupted Patient Tolerated Procedure: well Laceration #2 Consent Obtained: verbal consent Indication: laceration Site: face (right medial canthus) Size (cm): 2 Description: linear Depth: simple, single layer Anesthetic Used: lidocaine 1% Anesthesia Technique: local infiltration Amount (mls): 2 Pre-repair: irrigated extensively Type of Sutures: vicryl Size of Sutures: 6-0 Number of Sutures: 2 Technique: simple, interrupted Patient Tolerated Procedure: well Medical Decision Making - Medical Decision Making Patient is an 85-year-old male presenting after a trip and fall at his house 3 hours prior to arrival. Patient has a 2 cm laceration minutes on the right medial canthi aspect extending through the canthus towards the nasal bone. He also has a smaller 0.5 cm laceration on the nasal bone. He is not on blood thinners. Bleeding is controlled with a bandage. I did do a CT of the brain which showed no acute process, Facial bones CT revealed a nasal bone fracture, soft tissue swelling and soft tissue air consistent with a laceration on the right side of the nose, no evidence of orbital blowout fracture. Given the severity of the laceration on the medial right eye we did contact on-call edger tailer, Dr. Coronado who spoke with Dr. Kumar regarding the lacerati on repair and patient will follow up with Dr. Coronado in the office on Friday. Patient was started on antibiotics as well, first dose given in the ER. Patient tolerated procedure well. He is stable for discharge. Return parameters were discussed with the patient he verbalizes understanding. Case discussed in detail with Dr. Kumar. Disposition Clinical Impression: Fall, Laceration of right eyelid involving lacrimal passages, Laceration of nose, Nasal bone fracture Disposition: HOME SELF-CARE Condition: Stable Instructions (If sedation given, give patient instructions): Care For Your Stitches (ED) Additional Instructions: Please return to the Emergency Department if symptoms worsen or any other concerns. Keep areas clean and dry. The stitch on the nasal bony to be removed in 7 days. Take antibiotics as prescribed. Follow-up with edger tailer as discussed. Prescriptions: Amoxicillin/Potassium Clav [Augmentin 875-125 Tablet] 1 tab PO BID 5 Days #10 tab Is patient prescribed a controlled substance at d/c from ED?: No Referrals: Mitesh Chris MD [Primary Care Provider] - 1-2 days Rudy Cohen MD [STAFF PHYSICIAN] - 1-2 days
--- NOTE | 2020-08-31 19:23 | CT ---
EXAMINATION TYPE: CT brain wo con DATE OF EXAM: 08/31/2020 COMPARISON: 06/17/2020 HISTORY: Facial lacerations post fall injury CT DLP: 1311.4 mGycm Automated exposure control for dose reduction was used. There is cerebral cortical atrophy. There is no mass effect nor midline shift. There is no sign of in tracranial hemorrhage. The calvarium is intact. There is normal aeration of the mastoid sinuses. IMPRESSION: Cerebral atrophy. No acute intracranial abnormality. No change compared to old exam.
--- NOTE | 2020-08-31 19:28 | CT ---
EXAMINATION TYPE: CT facial bones wo con DATE OF EXAM: 08/31/2020 COMPARISON: None HISTORY: Fall. Injury. CT DLP: mGycm Automated exposure control for dose reduction was used. Images were obtained from the bottom of the mandible to the top of the frontal sinuses without contra st. The mandibular ring is intact. Temporomandibular joints are intact. Zygomatic arches appear normal. T he maxilla is intact. There is no evidence of a blowout fracture. Orbital margins are intact. There i s no evidence of retro-orbital mass. There is comminuted fracture of the nasal bone on the right side. There is soft tissue air bubbles on the right side of the nose. There is mild mucosal thickening in the ethmoid sinuses. There is normal aeration of the frontal sinuses. IMPRESSION: Nasal bone fracture with some comminution. Soft tissue swelling and soft tissue air consistent with l aceration on the right side of the nose. No evidence of orbital blowout fracture.
[2020-08-31] MEDS ORDERED: AMOXIC-POT CLAV 875-125MG 1 EACH TAB PO STA (19:51)
[2020-08-31 21:25] VITALS: BP 128/76; PULSE 89; RESP 16
== END 2020-08-31 21:15 | disposition home or self-care (01) ==
LOC: EC 17:04
DX: S02.2XXB Fracture of nasal bones, initial encounter for open fracture (principal); S51.811A Laceration without foreign body of right forearm, initial encounter; J45.909 Unspecified asthma, uncomplicated; E78.5 Hyperlipidemia, unspecified; Z79.899 Other long term (current) drug therapy; Z79.51 Long term (current) use of inhaled steroids; Z79.890 Hormone replacement therapy; W01.198A Fall on same level from slipping, tripping and stumbling with subsequent striking against other object, initial encounter; Y92.009 Unspecified place in unspecified non-institutional (private) residence as the place of occurrence of the external cause
CPT/HCPCS: 70486; 70450; 99283; 12011; J2001

== ENCOUNTER 2020-09-10 15:37 | Emergency (ER) | payer MEDICARE ==
[2020-09-10 15:45] VITALS: TEMP 97
--- NOTE | 2020-09-10 15:58 | ED ---
General Adult HPI - General Chief complaint: Fall Stated complaint: Fall/Eye Lac Time Seen by Provider: 09/10/20 15:54 Source: patient, family Mode of arrival: wheelchair Limitations: no limitations - History of Present Illness Initial comments: Patient presents the ED with his for evaluation. Per , the patient has been having frequent falls for the past couple of weeks, but she states that he has had intermittent falling for the past 8 months or so. Patient states that he has felt lightheaded intermittently as well, but he denies having any LOC or syncopal episodes. Patient most recently fell just prior to coming to the ED today, and he has sustained some skin tears from his fall today. Patient is currently only complaining of having some pain to his right cheek region. Patient denies any other site of pain. Patient denies fever or chills, headache, focal numbness/weakness/neuro deficit, visual changes, neck/back/extremity pain, chest pain, dyspnea, cough or cold symptoms, abdominal pain, nausea/vomiting/diarrhea, bloody or melanotic stool, dysuria or urinary symptoms, leg or calf swelling or pain, or any other symptoms or complaints. Patient's states that the patient's tetanus is up-to-date. - Related Data Home Medications Medication Instructions Recorded Confirmed Albuterol Sulfate [Proair Hfa] 2 puff INHALATION RT-QID PRN 04/08/14 08/31/20 Ferrous Sulfate [Iron (65 MG 325 mg PO BID 07/31/16 08/31/20 Elemental)] Simvastatin [Zocor] 20 mg PO HS 12/31/19 08/31/20 Fluticasone Nasal [place] [Flonase 2 spray EA NOSTRIL BID 06/16/20 08/31/20 Nasal [place]] Megestrol [Megace] 400 mg PO DAILY 06/16/20 08/31/20 Metoprolol Tartrate [Lopressor] 50 mg PO DAILY 06/16/20 08/31/20 Metoprolol Tartrate [Lopressor] 25 mg PO HS 08/31/20 08/31/20 predniSONE 15 mg PO DAILY 08/31/20 08/31/20 Previous Rx's Medication Instructions Recorded Amoxicillin/Potassium Clav 1 tab PO BID 5 Days #10 tab 08/31/20 [Augmentin 875-125 Tablet] Allergies Allergy/AdvReac Type Severity Reaction Status Date / Time No Known Allergies Allergy Verified 09/10/20 15:45 Review of Systems ROS Statement: Those systems with pertinent positive or pertinent negative responses have been documented in the HPI. ROS Other: All systems not noted in ROS Statement are negative. Past Medical History Past Medical History: Asthma, Hyperlipidemia, Prostate Disorder Additional Past Medical History / Comment(s): Hiatal hernia, hemorrhoids, SARCOIDOSIS,enlarged prostate, allergic rhinitis History of Any Multi-Drug Resistant Organisms: None Reported Past Surgical History: Appendectomy, Orthopedic Surgery, Prostate Surgery Additional Past Surgical History / Comment(s): RT ROTATOR CUFF, LYMPH NODE BX , TURP Past Anesthesia/Blood Transfusion Reactions: No Reported Reaction Past Psychological History: No Psychological Hx Reported Smoking Status: Never smoker Past Alcohol Use History: None Reported Past Drug Use History: None Reported - Past Family History Mother Family Medical History: No Reported History Father Family Medical History: No Reported History General Exam Limitations: no limitations General appearance: alert, in no apparent distress Head exam: Present: other (Patient is noted to have a skin tear over his right zygoma with mild surrounding tenderness) Eye exam: Present: normal appearance, PERRL, EOMI ENT exam: Present: mucous membranes moist, TM's normal bilaterally Neck exam: Present: normal inspection, full ROM, other (Trachea is in midline). Absent: tenderness, meningismus Respiratory exam: Present: normal lung sounds bilaterally. Absent: respiratory distress, wheezes, rales, rhonchi, chest wall tenderness Cardiovascular Exam: Present: regular rate, normal rhythm, normal heart sounds, other (Normal radial pulses bilaterally) GI/Abdominal exam: Present: soft. Absent: distended, tenderness, guarding Extremities exam: Present: full ROM, other (Superficial skin tears are noted over the patient's right shoulder, right elbow, right wrist right fourth finger and left fifth finger without any swelling, tenderness or deformity appreciated). Absent: tenderness Back exam: Present: normal inspection. Absent: tenderness Neurological exam: Present: alert, oriented X3, CN II-XII intact. Absent: motor sensory deficit Psychiatric exam: Present: normal affect, normal mood Skin exam: Present: warm, dry, normal color Course Vital Signs 09/10/20 09/10/20 09/10/20 15:40 15:58 16:00 Temperature 97.0 F L Pulse Rate 101 H Respiratory 18 Rate Blood Pressure 138/97 144/86 O2 Sat by Pulse 99 97 97 Oximetry 09/10/20 09/10/20 09/10/20 16:30 17:00 17:30 Temperature Pulse Rate 111 H 98 93 Respiratory 22 17 20 Rate Blood Pressure 144/86 129/80 114/87 O2 Sat by Pulse 97 96 Oximetry 09/10/20 18:00 Temperature Pulse Rate 118 H Respiratory 17 Rate Blood Pressure 122/78 O2 Sat by Pulse 96 Oximetry - Reevaluation(s) Reevaluation #1: 09/10/20 18:40 Patient denies development of any new pain or symptoms while in the ED. Patient remains alert and breathing comfortably. Patient and are aware the patient's test results. I have discussed hospital admission with the patient, but he declines, stating that he wishes to go home at this time. Patient's states that the patient has a follow-up appointment already scheduled with his primary care provider in the next 1-2 weeks. Patient and were counseled about falls, lightheadedness and skin tears. They were clearly explained return and follow-up instructions. Patient was instructed to have a low threshold for return to the ED. A single suture was also removed from a well-healed wound over the patient's nasal bones per the patient's request. EKG Findings - EKG Comments: EKG Findings:: Sinus tachycardia, ventricular rate of 101 bpm, occasional PACs with aberrant conduction, normal OK and QRS intervals, normal QT interval, normal axis, voltage criteria for LVH, no ST or T-wave abnormality Medical Decision Making - Medical Decision Making No acute injury is seen on the patient's CT imaging obtained today. Patient's labs are fairly unremarkable. Patient has declined my offer for hospital admission given his frequent falls and lightheadedness. Will discharge patient home with his at this time. Patient and were given fall precautions and wound care instructions, and they were clearly explained return and follow- up instructions. They feel comfortable to plan. - Lab Data Result diagrams: 09/10/20 16:32 09/10/20 16:33 Lab Results 09/10/20 09/10/20 09/10/20 Range/Units 16:32 16:33 16:33 WBC 8.6 (3.8-10.6) k/uL RBC 4.63 (4.30-5.90) m/uL Hgb 13.8 (13.0-17.5) gm/dL Hct 43.1 (39.0-53.0) % MCV 93.0 (80.0-100.0) fL MCH 29.7 (25.0-35.0) pg MCHC 31.9 (31.0-37.0) g/dL RDW 18.8 H (11.5-15.5) % Plt Count 232 (150-450) k/uL MPV 7.2 Neutrophils % 82 % Lymphocytes % 11 % Monocytes % 6 % Eosinophils % 0 % Basophils % 1 % Neutrophils # 7.0 (1.3-7.7) k/uL Lymphocytes # 0.9 L (1.0-4.8) k/uL Monocytes # 0.5 (0-1.0) k/uL Eosinophils # 0.0 (0-0.7) k/uL Basophils # 0.1 (0-0.2) k/uL Anisocytosis Slight PT 10.1 (9.0-12.0) sec INR 1.0 (<1.2) APTT 21.8 L (22.0-30.0) sec Sodium 135 L (137-145) mmol/L Potassium 4.3 (3.5-5.1) mmol/L Chloride 104 (98-107) mmol/L Carbon Dioxide 19 L (22-30) mmol/L Anion Gap 12 mmol/L BUN 15 (9-20) mg/dL Creatinine 0.53 L (0.66-1.25) mg/dL Est GFR (CKD-EPI)AfAm >90 (>60 ml/min/1.73 sqM) Est GFR (CKD-EPI)NonAf >90 (>60 ml/min/1.73 sqM) Glucose 242 H (74-99) mg/dL Calcium 9.0 (8.4-10.2) mg/dL Magnesium 2.2 (1.6-2.3) mg/dL Total Bilirubin 0.5 (0.2-1.3) mg/dL AST 31 (17-59) U/L ALT 46 (4-49) U/L Alkaline Phosphatase 80 (38-126) U/L Troponin I (0.000-0.034) ng/mL Total Protein 6.2 L (6.3-8.2) g/dL Albumin 3.5 (3.5-5.0) g/dL 09/10/20 Range/Units 16:33 WBC (3.8-10.6) k/uL RBC (4.30-5.90) m/uL Hgb (13.0-17.5) gm/dL Hct (39.0-53.0) % MCV (80.0-100.0) fL MCH (25.0-35.0) pg MCHC (31.0-37.0) g/dL RDW (11.5-15.5) % Plt Count (150-450) k/uL MPV Neutrophils % % Lymphocytes % % Monocytes % % Eosinophils % % Basophils % % Neutrophils # (1.3-7.7) k/uL Lymphocytes # (1.0-4.8) k/uL Monocytes # (0-1.0) k/uL Eosinophils # (0-0.7) k/uL Basophils # (0-0.2) k/uL Anisocytosis PT (9.0-12.0) sec INR (<1.2) APTT (22.0-30.0) sec Sodium (137-145) mmol/L Potassium (3.5-5.1) mmol/L Chloride (98-107) mmol/L Carbon Dioxide (22-30) mmol/L Anion Gap mmol/L BUN (9-20) mg/dL Creatinine (0.66-1.25) mg/dL Est GFR (CKD-EPI)AfAm (>60 ml/min/1.73 sqM) Est GFR (CKD-EPI)NonAf (>60 ml/min/1.73 sqM) Glucose (74-99) mg/dL Calcium (8.4-10.2) mg/dL Magnesium (1.6-2.3) mg/dL Total Bilirubin (0.2-1.3) mg/dL AST (17-59) U/L ALT (4-49) U/L Alkaline Phosphatase (38-126) U/L Troponin I <0.012 (0.000-0.034) ng/mL Total Protein (6.3-8.2) g/dL Albumin (3.5-5.0) g/dL - Radiology Data Radiology results: report reviewed (Noncontrast CT head shows no acute intracranial abnormality; noncontrast CT facial bones shows no acute fracture, but does show a subacute right nasal bone fracture) Disposition Clinical Impression: Falls, Lightheadedness, Skin tear Disposition: HOME SELF-CARE Condition: Stable Instructions (If sedation given, give patient instructions): Fall Prevention for Older Adults (ED), Lightheadedness (ED), Skin Tear (ED) Additional Instructions: Return to the ER immediately should you develop new or worsening pain, fainting, worsening dizziness, a fever, shortness of breath/trouble breathing, or new or worsening symptoms. Follow up closely with your primary care provider. Is patient prescribed a controlled substance at d/c from ED?: No Referrals: Mitesh Chris MD [Primary Care Provider] - 1-2 days Time of Disposition: 18:44
[2020-09-10 17:13] LABS: Anisocytosis Slight; Basophils # (A) 0.1 k/uL (0-0.2); Basophils % (A) 1 %; Eosinophils % (A) 0 %; HCT 43.1 % (39.0-53.0); HGB 13.8 gm/dL (13.0-17.5); Lymphocytes # (A) 0.9 k/uL (1.0-4.8); Lymphocytes % (A) 11 %; MCH 29.7 pg (25.0-35.0); MCHC 31.9 g/dL (31.0-37.0); Mean Platelet Volume 7.2; Monocytes # (A) 0.5 k/uL (0-1.0); Monocytes % (A) 6 %; Neutrophils % (A) 82 %; Platelet Count 232 k/uL (150-450); RBC 4.63 m/uL (4.30-5.90); RDW 18.8 % (11.5-15.5); WBC 8.6 k/uL (3.8-10.6)
[2020-09-10 17:15] LABS: AST 31 U/L (17-59); African American GFR (CKD) >90 (>60 ml/min/1.73 sqM); Albumin 3.5 g/dL (3.5-5.0); Alkaline Phosphatase 80 U/L (38-126); Anion Gap 12 mmol/L; Blood Urea Nitrogen 15 mg/dL (9-20); Carbon Dioxide 19 mmol/L (22-30); Chloride 104 mmol/L (98-107); Glucose 242 mg/dL (74-99); Magnesium 2.2 mg/dL (1.6-2.3); Non-African American GFR(CKD) >90 (>60 ml/min/1.73 sqM); Sodium 135 mmol/L (137-145); Total Bilirubin 0.5 mg/dL (0.2-1.3); Total Protein 6.2 g/dL (6.3-8.2)
[2020-09-10 17:21] LABS: ALT 46 U/L (4-49)
[2020-09-10 17:23] LABS: Partial Thromboplastin Time 21.8 sec (22.0-30.0); Prothrombin Time 10.1 sec (9.0-12.0)
[2020-09-10 17:40] LABS: Potassium 4.3 mmol/L (3.5-5.1)
--- NOTE | 2020-09-10 17:43 | CT ---
EXAMINATION TYPE: CT brain wo con DATE OF EXAM: 09/10/2020 COMPARISON: 08/31/2020. HISTORY: Fall injury, right side facial laceration CT DLP: 1323.4 mGycm Automated exposure control for dose reduction was used. FINDINGS: There is no acute intracranial hemorrhage, mass effect, midline shift or hydrocephalus. There is mode rate parenchymal volume loss and mild white matter disease. No calvarial fracture. Age-indeterminate right nasal bone fracture. IMPRESSION: NO ACUTE INTRACRANIAL ABNORMALITY. AGE-INDETERMINATE RIGHT NASAL BONE FRACTURE.
--- NOTE | 2020-09-10 17:49 | CT ---
EXAMINATION TYPE: CT facial bones wo con DATE OF EXAM: 09/10/2020 COMPARISON: 08/31/2020. HISTORY: Fall injury, right side facial laceration CT DLP: 1323.4 mGycm Automated exposure control for dose reduction was used. TECHNIQUE: CT scan of the facial bones is performed without contrast, axial images are obtained, zay nal reformatted images are also reviewed. FINDINGS: There is no acute fracture or dislocation of the imaged facial bones. There is subacute right nasal b one fracture. The paranasal sinuses are adequately aerated. The zygomatic arches, orbits and mandible s are grossly intact. There is improvement of previous mild soft tissue edema anterior to the right maxilla without signifi cant residual. IMPRESSION: No acute fracture. Subacute right nasal bone fracture.
[2020-09-10 18:24] VITALS: PULSE 118; RESP 17
[2020-09-10 19:01] VITALS: BP 118/87
== END 2020-09-10 19:01 | disposition home or self-care (01) ==
LOC: EC 15:37
DX: S01.81XA Laceration without foreign body of other part of head, initial encounter (principal); R42 Dizziness and giddiness; J45.909 Unspecified asthma, uncomplicated; D86.9 Sarcoidosis, unspecified; E78.5 Hyperlipidemia, unspecified; Z79.51 Long term (current) use of inhaled steroids; Z79.890 Hormone replacement therapy; Z79.899 Other long term (current) drug therapy; W19.XXXA Unspecified fall, initial encounter
CPT/HCPCS: 36415; 70450; 70486; 80053; 83735; 84484; 85025; 85610; 85730; 93005; 99284

== ENCOUNTER → 2020-11-08 | Outpatient (CLI) | payer MEDICARE ==
--- NOTE | 2020-11-10 18:45 | HM ---
HOLTER MONITOR REPORT The patient was monitored for 24 hours. The baseline rhythm is sinus mechanism, rate of 103. Minimum was 73, maximum 131 beats per minute. Ventricular ectopic activity was present in the form of rare single PVCs with rare couplets. Supraventricular ectopic activity was present with rare single PACs. No symptoms were reported. CONCLUSION: 1. Sinus tachycardia baseline rhythm. 2. Rare ventricular ectopic activity. 3. Rare supraventricular ectopic activity. 4. No symptoms were reported. MMODL / IJN: [id number] /
== END | disposition home or self-care (01) ==
LOC: RADECHMAIN 11:55
PROVIDERS: ATTEND Internal Medicine
DX: R00.0 Tachycardia, unspecified (principal)
CPT/HCPCS: 93225; 93226

== ENCOUNTER → 2020-11-30 | Outpatient (CLI) | payer MEDICARE ==
[2020-11-30 20:02] LABS: Protein, Total 6.1 g/dL (6.2-8.2)
[2020-11-30 21:44] LABS: Hemoglobin A1C 9.3 % (4.0-6.0)
[2020-12-01 15:00] LABS: Albumin 2.92 g/dL (3.80-4.90); Gamma Globulin 0.82 g/dL (0.70-1.50)
== END | disposition home or self-care (01) ==
LOC: LABWHC1 10:49
PROVIDERS: ATTEND Psychiatry & Neurology Neurology
DX: G62.9 Polyneuropathy, unspecified (principal); M62.81 Muscle weakness (generalized); R73.9 Hyperglycemia, unspecified
CPT/HCPCS: 36415; 82550; 82607; 82747; 83036; 84165; 84443; 85652; 86618

== ENCOUNTER → 2020-12-07 | Outpatient (CLI) | payer MEDICARE ==
--- NOTE | 2020-12-07 23:34 | MR ---
MRI CERVICAL SPINE: CLINICAL HISTORY: Leg pain, falls, myelopathy. TECHNIQUE: Multiplanar, multisequence imaging of the cervical spine is performed without IV contrast. COMPARISON: None. FINDINGS: Sagittal images of the cervical spine show the craniocervical junction to appear within nor mal limits. The cervical and upper thoracic spinal cord is normal in course, caliber, and signal. Th ere is grade 1 retrolisthesis C5 on C6. Vertebral body heights are maintained. Advanced disc space na rrowing C3-C4 level. Moderate disc space narrowing C5-C6 and C6-C7 levels. Moderate multilevel anteri or spurring. The bone marrow signal intensity is within normal limits. Axial images at C2-C3 level show uncovertebral facet degenerative changes bilaterally causing mild ri ght-sided neural foraminal narrowing. Axial images at C3-C4 level shows subtle spondylolisthesis with broad-based posterior disc protrusion and uncovertebral facet degenerative changes bilaterally, there is mild effacement anterior thecal s ac. Patent bilateral neural foramina. Axial images at C4-C5 level show uncovertebral facet degenerative changes bilaterally with broad-base d right paracentral disc protrusion mildly effacing the anterior thecal sac, patent bilateral neural foramina. Axial images at C5-C6 level show facet degenerative changes causing [id number] left-sided neura l foraminal narrowing. Subtle spondylolisthesis. Axial images at C6-C7 levels with broad-based posterior disc protrusion effacing anterior thecal sac. Patent bilateral neural foramina. Axial images at C7-T1 level appear within normal limits. Visualized brain parenchyma shows moderate generalized atrophy. 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
== END | disposition home or self-care (01) ==
LOC: RADMRIMAIN 15:06
PROVIDERS: ATTEND Psychiatry & Neurology Neurology
DX: M43.12 Spondylolisthesis, cervical region (principal); M47.12 Other spondylosis with myelopathy, cervical region
CPT/HCPCS: 72141

== ENCOUNTER → 2021-01-01 | Outpatient (CLI) | payer MEDICARE | END | disposition home or self-care (01) | LOC: LABWHC1 10:41 | PROVIDERS: ATTEND Psychiatry & Neurology Neurology | DX: R79.9 Abnormal finding of blood chemistry, unspecified (principal) | CPT/HCPCS: 36415; 86334 ==

== ENCOUNTER → 2021-02-15 | Outpatient (CLI) | payer MEDICARE ==
[2021-02-15 18:35] LABS: Basophils # (A) 0.05 X 10*3/uL (0.00-0.10); Basophils % (A) 0.5 %; Eosinophils # (A) 0.05 X 10*3/uL (0.04-0.35); Eosinophils % (A) 0.5 %; HCT 42.6 % (39.6-50.0); HGB 13.2 g/dL (13.0-17.0); Lymphocytes # (A) 1.49 X 10*3/uL (0.90-5.00); Lymphocytes % (A) 15.3 %; MCH 28.3 pg (27.0-32.0); MCV 91.4 fL (80.0-97.0); Mean Platelet Volume 10.8 fL (9.5-12.2); Monocytes # (A) 0.93 X 10*3/uL (0.20-1.00); Monocytes % (A) 9.6 %; Neutrophils # (A) 7.08 X 10*3/uL (1.80-7.70); Neutrophils % (A) 72.8 %; Platelet Count 300 X 10*3/uL (140-440); RBC 4.66 X 10*6/uL (4.40-5.60); RDW 16.1 % (11.5-14.5); WBC 9.73 X 10*3/uL (4.50-10.00)
[2021-02-15 20:42] LABS: Erythrocyte Sedimentation Rate 28 mm/Hr (0-20)
[2021-02-16 01:55] LABS: African American GFR (CKD) 101.1 (60.0-200.0); Albumin 4.1 g/dL (3.80-4.90); Albumin/Globulin Ratio 1.86 (1.60-3.17); Anion Gap 13.2 mmol/L (4.00-12.00); BUN/Creat Ratio 18.57 Ratio (12.00-20.00); C Reactive Protein 1.4 mg/dL (0.0-0.8); Calcium 8.9 mg/dL (8.7-10.3); Carbon Dioxide 18.8 mmol/L (21.6-31.8); Globulin 2.2 g/dL (1.6-3.3); Non-African American GFR(CKD) 87.3 (60.0-200.0); Potassium 4.2 mmol/L (3.5-5.5); Total Bilirubin 0.4 mg/dL (0.3-1.2); Total Protein 6.3 g/dL (6.2-8.2)
== END | disposition home or self-care (01) ==
LOC: LABWHC1 12:08
PROVIDERS: ATTEND Internal Medicine
DX: M35.3 Polymyalgia rheumatica (principal)
CPT/HCPCS: 36415; 80053; 85025; 85652; 86140

== ENCOUNTER → 2022-01-17 | Outpatient (CLI) | payer MEDICARE ==
[2022-01-17 14:58] LABS: Basophils # (A) 0.05 X 10*3/uL (0.00-0.10); Basophils % (A) 0.5 %; Eosinophils # (A) 0.25 X 10*3/uL (0.04-0.35); Eosinophils % (A) 2.6 %; HCT 46.9 % (39.6-50.0); HGB 14.4 g/dL (13.0-17.0); Immature Grans, Automated 0.5 %; Lymphocytes % (A) 20.7 %; MCH 27.4 pg (27.0-32.0); MCHC 30.7 g/dL (32.0-37.0); MCV 89.3 fL (80.0-97.0); Monocytes # (A) 0.78 X 10*3/uL (0.20-1.00); Monocytes % (A) 8.1 %; NRBC Per 100 WBC 0 /100 WBCS (0.0-0.0); Neutrophils # (A) 6.53 X 10*3/uL (1.80-7.70); Neutrophils % (A) 67.6 %; Platelet Count 332 X 10*3/uL (140-440); RBC 5.25 X 10*6/uL (4.40-5.60); RDW 15.3 % (11.5-14.5); WBC 9.66 X 10*3/uL (4.50-10.00)
[2022-01-17 15:37] LABS: ALT 10 U/L (10-49); AST 17 U/L (14-35); African American GFR (CKD) 95.1 (60.0-200.0); Albumin/Globulin Ratio 1.29 (1.60-3.17); Alkaline Phosphatase 87 U/L (41-126); BUN/Creat Ratio 16.25 Ratio (12.00-20.00); Calcium 9.3 mg/dL (8.7-10.3); Carbon Dioxide 22.4 mmol/L (20.0-27.5); Chloride 102 mmol/L (96-109); Chol/HDL Ratio 4.52 Ratio; Globulin 3.1 g/dL (1.6-3.3); Glucose 106 mg/dL (70-110); Potassium 4.6 mmol/L (3.5-5.5); Sodium 139 mmol/L (135-145); Total Protein 7.1 g/dL (6.2-8.2)
[2022-01-17 15:54] LABS: Erythrocyte Sedimentation Rate 45 mm/Hr (0-20)
== END | disposition home or self-care (01) ==
LOC: LABWHC1 09:56
PROVIDERS: ATTEND Internal Medicine
DX: R53.1 Weakness (principal); R53.83 Other fatigue
CPT/HCPCS: 36415; 80053; 80061; 82306; 84439; 84443; 85025; 85652

== ENCOUNTER 2022-05-03 12:19 | Emergency (ER) | payer MEDICARE ==
--- NOTE | 2022-05-03 13:27 | ED ---
Skin/Abscess/FB HPI - General Chief complaint: Skin/Abscess/Foreign Body Stated complaint: Tick bite Time Seen by Provider: 05/03/22 12:24 Source: patient Mode of arrival: ambulatory Limitations: no limitations - History of Present Illness Initial comments: Patient is an 87-year-old male presenting with chief complaint of tick bite on his back. Patient states that he removed the tick 2 days ago, and he wants to get the site examined. Patient does not know how long the tick was attached. His notes that when she initially remove the tach the area was very red and swollen. There is still a silver dollar-sized area of redness and swelling. Patient's has been applying Neosporin and rubbing alcohol to keep the wound clean. Patient is otherwise asymptomatic, he denies body aches, fatigue, chest pain, shortness of breath, numbness, tingling, palpitations, weakness, abdominal pain, nausea, vomiting, headache, vision or hearing changes, rash and other areas of the body, diarrhea, dysuria, hematuria. - Related Data Home Medications Medication Instructions Recorded Confirmed Albuterol Sulfate [Proair Hfa] 2 puff INHALATION RT-QID PRN 04/08/14 08/31/20 Ferrous Sulfate [Iron (65 MG 325 mg PO BID 07/31/16 08/31/20 Elemental)] Simvastatin [Zocor] 20 mg PO HS 12/31/19 08/31/20 Fluticasone Nasal [place] [Flonase 2 spray EA NOSTRIL BID 06/16/20 08/31/20 Nasal [place]] Megestrol [Megace] 400 mg PO DAILY 06/16/20 08/31/20 Metoprolol Tartrate [Lopressor] 50 mg PO DAILY 06/16/20 08/31/20 Metoprolol Tartrate [Lopressor] 25 mg PO HS 08/31/20 08/31/20 predniSONE 15 mg PO DAILY 08/31/20 08/31/20 Previous Rx's Medication Instructions Recorded Amoxicillin/Potassium Clav 1 tab PO BID 5 Days #10 tab 08/31/20 [Augmentin 875-125 Tablet] Doxycycline [Vibramycin] 100 mg PO BID 10 Days #20 capsule 05/03/22 Allergies Allergy/AdvReac Type Severity Reaction Status Date / Time No Known Allergies Allergy Verified 05/03/22 12:23 Review of Systems ROS Statement: Those systems with pertinent positive or pertinent negative responses have been documented in the HPI. ROS Other: All systems not noted in ROS Statement are negative. Past Medical History Past Medical History: Asthma, Hyperlipidemia, Prostate Disorder Additional Past Medical History / Comment(s): Hiatal hernia, hemorrhoids, SARCOIDOSIS,enlarged prostate, allergic rhinitis History of Any Multi-Drug Resistant Organisms: None Reported Past Surgical History: Appendectomy, Orthopedic Surgery, Prostate Surgery Additional Past Surgical History / Comment(s): RT ROTATOR CUFF, LYMPH NODE BX , TURP Past Anesthesia/Blood Transfusion Reactions: No Reported Reaction Past Psychological History: No Psychological Hx Reported Smoking Status: Never smoker Past Alcohol Use History: None Reported Past Drug Use History: None Reported - Past Family History Mother Family Medical History: No Reported History Father Family Medical History: No Reported History General Exam Limitations: no limitations General appearance: alert, in no apparent distress Head exam: Present: atraumatic, normocephalic, normal inspection Eye exam: Present: normal appearance, EOMI. Absent: scleral icterus, periorbital swelling Neck exam: Present: normal inspection. Absent: tenderness Respiratory exam: Present: normal lung sounds bilaterally. Absent: respiratory distress, wheezes, rales, rhonchi, stridor Cardiovascular Exam: Present: regular rate, normal rhythm, normal heart sounds. Absent: systolic murmur, diastolic murmur, rubs, gallop, clicks Back exam: Present: rash noted (3 cm x 3 cm area of redness, warmth, induration. It does not appear to be the classic erythema migrans pattern of the bull's- eye) Neurological exam: Present: alert, oriented X3, CN II-XII intact Psychiatric exam: Present: normal affect, normal mood Course Vital Signs 05/03/22 05/03/22 12:20 13:49 Temperature 98.4 F 97.7 F Pulse Rate 88 84 Respiratory 20 18 Rate Blood Pressure 107/67 105/72 O2 Sat by Pulse 98 96 Oximetry Medical Decision Making - Medical Decision Making Patient is an 87-year-old male presenting with chief complaint of tick bite that he wishes to have examined. Patient's remove the tick 2 days ago from his back, however they do not know how long it was attached. Patient reports that he feels otherwise fine, no fatigue, muscle soreness, headache, vision or hearing changes. On examination there is 3x3cm area of redness and induration, this does not resemble a classic bull's-eye rash of erythema migrans, however we will treat for Lyme's disease prophylactically. Lyme titers were drawn, instructed the patient to ensure he follows up with his PCP this week to review the results. He was provided with doxycycline 100 mg twice a day for 10 days. Report back to ER with any new or worsening symptoms. I discussed return parameters answered all questions. Patient conveyed verbal understanding and agreed to the plan. I discussed this case with my attending Dr. Leonard. Disposition Clinical Impression: Tick bite Disposition: HOME SELF-CARE Condition: Good Instructions (If sedation given, give patient instructions): Lyme Disease (ED), Tick Bite (ED) Additional Instructions: Follow-up with PCP this week to review Lyme titers that were drawn today. Report back to ER with any new or worsening symptoms. Take medication as prescribed. Prescriptions: Doxycycline [Vibramycin] 100 mg PO BID 10 Days #20 capsule Is patient prescribed a controlled substance at d/c from ED?: No Referrals: Mitesh Chris MD [Primary Care Provider] - 1-2 days Time of Disposition: 13:34
[2022-05-03] MEDS ORDERED: DOXYCYCLINE 100 MG CAP PO STA (13:33)
[2022-05-03 13:51] VITALS: BP 105/72; PULSE 84; RESP 18; TEMP 97.7
[2022-05-06 10:25] LABS: Lyme IgG/IgM 0.74 Index
== END 2022-05-03 13:55 | disposition home or self-care (01) ==
LOC: EC 12:19
DX: S30.860A Insect bite (nonvenomous) of lower back and pelvis, initial encounter (principal); R60.9 Edema, unspecified; J45.909 Unspecified asthma, uncomplicated; E78.5 Hyperlipidemia, unspecified
CPT/HCPCS: 36415; 86618; 99282

== ENCOUNTER → 2022-06-19 | Outpatient (CLI) | payer MEDICARE ==
--- NOTE | 2022-06-19 14:23 | US ---
EXAMINATION TYPE: US axilla LT DATE OF EXAM: 06/19/2022 COMPARISON: NONE CLINICAL HISTORY: L02.91 SKIN ABCESS. Left axilla palpable x 1 week that had some drainage. No injur y. Patient states it has gone down in size. Left axilla palpable scanned. Superficial complex lesion - 1.4 x 1.3 x 1.0 cm with peripheral vascula r flow. IMPRESSION: Nonspecific subcutaneous lesion could reflect an infected sebaceous cyst. Correlate clin ically.
== END | disposition home or self-care (01) ==
LOC: RADUSWWP 13:09
PROVIDERS: ATTEND Internal Medicine
DX: L02.91 Cutaneous abscess, unspecified (principal)

== ENCOUNTER → 2022-09-23 | Outpatient (CLI) | payer MEDICARE ==
[2022-09-23 15:02] LABS: ALT 13 U/L (10-49); AST 18 U/L (14-35); LDL Cholesterol,Calculated 108.9 mg/dL (0.0-131.0)
== END | disposition home or self-care (01) ==
LOC: LABWHC1 08:10
PROVIDERS: ATTEND Internal Medicine Interventional Cardiology
DX: E78.2 Mixed hyperlipidemia (principal)
CPT/HCPCS: 36415; 80061; 84450; 84460

== ENCOUNTER 2023-06-03 00:49 | Emergency (ER) | payer MEDICARE ==
[2023-06-03 00:55] VITALS: RESP 18
[2023-06-03] MEDS ORDERED: DIPH,PERTUS(ACELL)TETVAC-LF 0.5 ML VIAL IM ONE (01:08)
[2023-06-03] MEDS ORDERED: LIDOCAINE 1% INJ 10MG/ML (20 ML MDV) SQ ONE (01:08)
--- NOTE | 2023-06-03 02:02 | ED ---
Head Injury HPI - General Chief complaint: Head Injury Stated complaint: Head injury,Fall Time Seen by Provider: 06/03/23 01:04 Source: patient Mode of arrival: ambulatory Limitations: no limitations - History of Present Illness Initial comments: 88-year-old male presenting with chief complaint of head injury. Patient states that he rolled out of bed and hit his head on the dresser. He denies loss of consciousness or blood thinners. Patient does have a laceration to the left side of the head. He denies nausea, vomiting, dizziness, vision or hearing changes, numbness, tingling, weakness. - Related Data Home Medications Medication Instructions Recorded Confirmed Albuterol Sulfate [Proair Hfa] 2 puff INHALATION RT-QID PRN 04/08/14 08/31/20 Ferrous Sulfate [Iron (65 MG 325 mg PO BID 07/31/16 08/31/20 Elemental)] Simvastatin [Zocor] 20 mg PO HS 12/31/19 08/31/20 Fluticasone Nasal [place] [Flonase 2 spray EA NOSTRIL BID 06/16/20 08/31/20 Nasal [place]] Megestrol [Megace] 400 mg PO DAILY 06/16/20 08/31/20 Metoprolol Tartrate [Lopressor] 50 mg PO DAILY 06/16/20 08/31/20 Metoprolol Tartrate [Lopressor] 25 mg PO HS 08/31/20 08/31/20 predniSONE 15 mg PO DAILY 08/31/20 08/31/20 Previous Rx's Medication Instructions Recorded Amoxicillin/Potassium Clav 1 tab PO BID 5 Days #10 tab 08/31/20 [Augmentin 875-125 Tablet] Doxycycline [Vibramycin] 100 mg PO BID 10 Days #20 capsule 05/03/22 Allergies/Adverse reactions: Allergies Allergy/AdvReac Type Severity Reaction Status Date / Time No Known Allergies Allergy Verified 06/03/23 00:51 Review of Systems ROS Statement: Those systems with pertinent positive or pertinent negative responses have been documented in the HPI. ROS Other: All systems not noted in ROS Statement are negative. Past Medical History Past Medical History: Asthma, Hyperlipidemia, Prostate Disorder Additional Past Medical History / Comment(s): Hiatal hernia, hemorrhoids, SARCOIDOSIS,enlarged prostate, allergic rhinitis History of Any Multi-Drug Resistant Organisms: None Reported Past Surgical History: Appendectomy, Orthopedic Surgery, Prostate Surgery Additional Past Surgical History / Comment(s): RT ROTATOR CUFF, LYMPH NODE BX , TURP Past Anesthesia/Blood Transfusion Reactions: No Reported Reaction Past Psychological History: No Psychological Hx Reported Smoking Status: Never smoker Past Alcohol Use History: None Reported Past Drug Use History: None Reported - Past Family History Mother Family Medical History: No Reported History Father Family Medical History: No Reported History General Exam Limitations: no limitations General appearance: alert, in no apparent distress Head exam: Present: atraumatic, normocephalic, normal inspection Eye exam: Present: normal appearance, PERRL, EOMI. Absent: scleral icterus, periorbital swelling Neck exam: Present: normal inspection, full ROM. Absent: tenderness Respiratory exam: Present: normal lung sounds bilaterally. Absent: respiratory distress, wheezes, rales, rhonchi, stridor Cardiovascular Exam: Present: regular rate, normal rhythm, normal heart sounds. Absent: systolic murmur, diastolic murmur, rubs, gallop, clicks Neurological exam: Present: alert, oriented X3, CN II-XII intact Expanded Patient oriented to: Present: person, place, time Speech: Present: fluid speech Cranial nerves: EOM's Intact: Normal Motor strength exam: RUE: 5, LUE: 5, RLE: 5, LLE: 5 Eye Response: (4) open spontaneously Motor Response: (6) obeys commands Verbal Response: (5) oriented [place] Total: 15 Psychiatric exam: Present: normal affect, normal mood Skin exam: Present: warm, dry, intact, normal color. Absent: rash Course Vital Signs 06/03/23 06/03/23 06/03/23 00:51 01:45 02:32 Temperature 98.1 F Pulse Rate 83 75 77 Respiratory 18 18 18 Rate Blood Pressure 153/79 119/72 128/73 O2 Sat by Pulse 98 96 97 Oximetry Procedures - Laceration Laceration #1 Consent Obtained: verbal consent Indication: laceration Site: scalp Size (cm): 3 Description: linear Depth: simple, single layer Anesthetic Used: lidocaine 1%, without epi Type of Sutures: other (kaylen) Number of Sutures: 3 Patient Tolerated Procedure: well Medical Decision Making - Medical Decision Making Was pt. sent in by a medical professional or institution (, PA, [facility], urgent care, hospital, or senior care...) When possible be specific @ -No Did you speak to anyone other than the patient for history (EMS, parent, family, police, friend...)? What history was obtained from this source @ -No Did you review nursing and triage notes (agree or disagree)? Why? @ -I reviewed and agree with nursing and triage notes Were old charts reviewed (outside hosp., previous admission, EMS record, old EKG, old radiological studies, urgent care reports/EKG's, senior care records)? Report findings @ -No old charts were reviewed Differential Diagnosis (chest pain, altered mental status, abdominal pain women, abdominal pain men, vaginal bleeding, weakness, fever, dyspnea, syncope, headache, dizziness, GI bleed, back pain, seizure, CVA, palpatations, mental health, musculoskeletal)? @ -not applicable EKG interpreted by me (3pts min.). @ -As above X-rays interpreted by me (1pt min.). @ -None done CT interpreted by me (1pt min.). @ -CT shows no acute intracranial process or cervical spine fracture U/S interpreted by me (1pt. min.). @ -None done What testing was considered but not performed or refused? (CT, X-rays, U/S, labs)? Why? @ -None What meds were considered but not given or refused? Why? @ -None Did you discuss the management of the patient with other professionals (professionals i.e. , PA, [facility], lab, RT, psych nurse, social group worker, meter reader chief, teacher, digital marketing officer, pillowcase folder)? Give summary @ -No Was smoking cessation discussed for >3mins.? @ -No Was critical care preformed (if so, how long)? @ -No Were there social determinants of health that impacted care today? How? (Homelessness, low income, unemployed, alcoholism, drug addiction, transportation, low edu. Level, literacy, decrease access to med. care, senior living, rehab)? @ -No Was there de-escalation of care discussed even if they declined (Discuss DNR or withdrawal of care, Hospice)? DNR status @ -No What co-morbidities impacted this encounter? (DM, HTN, Smoking, COPD, CAD, Cancer, CVA, ARF, Chemo, Hep., AIDS, mental health diagnosis, sleep apnea, morbid obesity)? @ -None Was patient admitted / discharged? Hospital course, mention meds given and route, prescriptions, significant lab abnormalities, going to OR and other pertinent info. @ -88-year-old male presenting with chief complaint of head injury. Patient rolled out of bed this evening. He hit his head on his dresser. No loss of consciousness or blood thinners. There is a 3 cm scalp laceration to the left side. CT is negative for acute intracranial process or cervical spine fracture. Laceration is repaired with kaylen. Patient educated on wound care and alarm symptoms. Follow-up with PCP. Report back to ER with any new or worsening symptoms. Discussed return parameters and answered all questions. Patient conveyed verbal understanding and agreed to the plan. I discussed this case in detail with my attending Dr. Santiago Undiagnosed new problem with uncertain prognosis? @ -No Drug Therapy requiring intensive monitoring for toxicity (Heparin, Nitro, Insulin, Cardizem)? @ -No Were any procedures done? @ -Laceration repair Diagnosis/symptom? @ -Scalp laceration Acute, or Chronic, or Acute on Chronic? @ -Acute Uncomplicated (without systemic symptoms) or Complicated (systemic symptoms)? @ -Uncomplicated Side effects of treatment? @ -No Exacerbation, Progression, or Severe Exacerbation? @ -No Poses a threat to life or bodily function? How? (Chest pain, [place], [place], pneumonia, PE, COPD, DKA, ARF, appy, cholecystitis, CVA, Diverticulitis, Homicidal, Suicidal, threat to staff... and all critical care pts) @ -No Disposition Clinical Impression: Scalp laceration Disposition: HOME SELF-CARE Condition: Good Instructions (If sedation given, give patient instructions): Head Injury (ED), Staple Care (ED) Additional Instructions: Follow-up with PCP. Report back to ER with any new or worsening symptoms. Kaylen may be removed in 7-10 days. Do not get the wound wet for 24 hours. Is patient prescribed a controlled substance at d/c from ED?: No Referrals: Mitesh Chris MD [Primary Care Provider] - 1-2 days Time of Disposition: 03:31
--- NOTE | 2023-06-03 03:04 | CT ---
EXAM: CT Head Without Intravenous Contrast CLINICAL HISTORY: ITS.REASON CT Reason: head injury TECHNIQUE: Axial computed tomography images of the head/brain without intravenous contrast. CTDI is 45.2 mGy and DLP is 1094.5 mGy-cm. This CT exam was performed using one or more of the following dose reduction techniques: automated exposure control, adjustment of the mA and/or kV according to patient size, and/or use of iterative reconstruction technique. COMPARISON: No relevant prior studies available. FINDINGS: Brain: No hemorrhage, herniation, or mass effect. Chronic microvascular ischemic changes. Ventricles: No hydrocephalus. Age related cerebral volume loss. Bones/joints: Unremarkable. Soft tissues: Unremarkable. Sinuses: Unremarkable. Mastoid air cells: Clear. IMPRESSION: No acute hemorrhage, hydrocephalus, or mass effect. EXAM: CT Cervical Spine Without Intravenous Contrast CLINICAL HISTORY: ITS.REASON CT Reason: head injury TECHNIQUE: Axial computed tomography images of the cervical spine without intravenous contrast. CTDI is 13.4 mGy and DLP is 345.9 mGy-cm. This CT exam was performed using one or more of the following dose reduction techniques: automated exposure control, adjustment of the mA and/or kV according to patient size, and/or use of iterative reconstruction technique. COMPARISON: No relevant prior studies available. FINDINGS: Vertebrae: No acute fracture. Discs/spinal canal/neural foramina: degenerative changes. Soft tissues: No prevertebral swelling. IMPRESSION: No acute fracture or subluxation.
[2023-06-03 03:51] VITALS: BP 123/72; PULSE 65; TEMP 97.7
== END 2023-06-03 03:50 | disposition home or self-care (01) ==
LOC: EC 00:49
DX: S01.01XA Laceration without foreign body of scalp, initial encounter (principal); J45.909 Unspecified asthma, uncomplicated; E78.5 Hyperlipidemia, unspecified; Z79.899 Other long term (current) drug therapy; Z23 Encounter for immunization; W22.8XXA Striking against or struck by other objects, initial encounter
CPT/HCPCS: 72125; 70450; 90715; 99284; 90471; J2001

== ENCOUNTER 2024-05-17 12:19 | Emergency (ER) | payer MEDICARE ==
[2024-05-17 12:30] VITALS: RESP 18
[2024-05-17] MEDS: TOPICAL SKIN ADHESIVE 1 EACH AMP TOPICAL ONE ×2 (13:05)
[2024-05-17] MEDS: DIPH,PERTUS(ACELL)TETVAC-LF 0.5 ML VIAL IM ONE (13:06)
--- NOTE | 2024-05-17 14:09 | XR ---
EXAMINATION TYPE: XR forearm LT DATE OF EXAM: 05/17/2024 2:03 PM CLINICAL INDICATION:Male, 89 years old with history of fall, pain; [facility] COMPARISON: None TECHNIQUE: XR forearm LT; forearm was examined in AP and lateral projections. FINDINGS: No acute osseous pathology, soft tissue swelling or joint dislocations are seen. Atelectas is of the arterial vasculature. IMPRESSION: No evidence of acute fracture.
--- NOTE | 2024-05-17 14:23 | ED ---
Fall HPI - General Chief Complaint: Fall Stated Complaint: L arm lac Time Seen by Provider: 05/17/24 12:30 Source: patient Mode of arrival: ambulatory - History of Present Illness Initial Comments: 89-year-old male presents emergency department for a fall. States that he had a fall from standing. He lost his balance and fell onto his outstretched hands. He does have a skin tear noted to the left forearm and right hand. He denies hitting his head. No loss of consciousness. He does not take blood thinners. He denies any joint pain. No neck or back pain. He is unaware of his last tetanus shot. No other alleviating, precipitating or modifying factors - Related Data Home Medications Medication Instructions Recorded Confirmed Albuterol Sulfate [Proair Hfa] 2 puff INHALATION RT-QID PRN 04/08/14 05/17/24 Ferrous Sulfate [Iron (65 MG 325 mg PO BID 07/31/16 05/17/24 Elemental)] Simvastatin [Zocor] 20 mg PO HS 12/31/19 05/17/24 Aspirin EC [Ecotrin Low Dose] 81 mg PO HS 05/17/24 05/17/24 Fluticasone Propion/Salmeterol 1 puff INHALATION RT-BID 05/17/24 05/17/24 [Wixela 100-50 Inhub] Montelukast [Singulair] 10 mg PO HS 05/17/24 05/17/24 Allergies Allergy/AdvReac Type Severity Reaction Status Date / Time No Known Allergies Allergy Verified 05/17/24 14:16 Review of Systems ROS Statement: Those systems with pertinent positive or pertinent negative responses have been documented in the HPI. ROS Other: All systems not noted in ROS Statement are negative. Past Medical History Past Medical History: Asthma, Hyperlipidemia, Prostate Disorder Additional Past Medical History / Comment(s): Hiatal hernia, hemorrhoids, SARCOIDOSIS,enlarged prostate, allergic rhinitis History of Any Multi-Drug Resistant Organisms: None Reported Past Surgical History: Appendectomy, Orthopedic Surgery, Prostate Surgery Additional Past Surgical History / Comment(s): RT ROTATOR CUFF, LYMPH NODE BX , TURP Past Anesthesia/Blood Transfusion Reactions: No Reported Reaction Past Psychological History: No Psychological Hx Reported Smoking Status: Never smoker Past Alcohol Use History: None Reported Past Drug Use History: None Reported - Past Family History Mother Family Medical History: No Reported History Father Family Medical History: No Reported History General Exam Limitations: no limitations General appearance: alert, in no apparent distress Head exam: Present: atraumatic, normocephalic, normal inspection Eye exam: Present: normal appearance, PERRL, EOMI. Absent: scleral icterus, conjunctival injection, periorbital swelling ENT exam: Present: normal exam, mucous membranes moist Neck exam: Present: normal inspection. Absent: tenderness, meningismus, lymphadenopathy Respiratory exam: Present: normal lung sounds bilaterally. Absent: respiratory distress, wheezes, rales, rhonchi, stridor Cardiovascular Exam: Present: regular rate, normal rhythm, normal heart sounds. Absent: systolic murmur, diastolic murmur, rubs, gallop, clicks GI/Abdominal exam: Present: soft, normal bowel sounds. Absent: distended, tenderness, guarding, rebound, rigid Extremities exam: Present: normal inspection, full ROM, normal capillary refill. Absent: tenderness, pedal edema, joint swelling, calf tenderness Back exam: Present: normal inspection Neurological exam: Present: alert, oriented X3, CN II-XII intact Psychiatric exam: Present: normal affect, normal mood Skin exam: Present: warm, dry, normal color, other (Skin tear left dorsal forearm measuring 9 x 2 cm. Skin tear noted to the right dorsal hand measuring 8 x 1 cm). Absent: rash Course Vital Signs 05/17/24 05/17/24 12:25 15:01 Temperature 97.4 F L 97.9 F Pulse Rate 95 68 Respiratory 18 18 Rate Blood Pressure 117/67 121/70 O2 Sat by Pulse 98 97 Oximetry Medical Decision Making - Medical Decision Making Was pt. sent in by a medical professional or institution (, PA, MORTGAGE LOAN ASSISTANT, urgent care, hospital, or [facility]...) When possible be specific @ -No Did you speak to anyone other than the patient for history (EMS, parent, family, police, friend...)? What history was obtained from this source @ -The does help provide history Did you review nursing and triage notes (agree or disagree)? Why? @ -I reviewed and agree with nursing and triage notes Were old charts reviewed (outside hosp., previous admission, EMS record, old EKG, old radiological studies, urgent care reports/EKG's, [facility] records)? Report findings @ -No old charts were reviewed Differential Diagnosis (chest pain, altered mental status, abdominal pain women, abdominal pain men, vaginal bleeding, weakness, fever, dyspnea, syncope, headache, dizziness, GI bleed, back pain, seizure, CVA, palpatations, mental health, musculoskeletal)? @ -Skin tear, abrasion, laceration, fracture EKG interpreted by me (3pts min.). @ -Not done X-rays interpreted by me (1pt min.). @ -Yes and demonstrates no fracture CT interpreted by me (1pt min.). @ -None done U/S interpreted by me (1pt. min.). @ -None done What testing was considered but not performed or refused? (CT, X-rays, U/S, labs)? Why? @ -None What meds were considered but not given or refused? Why? @ -None Did you discuss the management of the patient with other professionals (professionals i.e. , PA, MORTGAGE LOAN ASSISTANT, lab, RT, psych nurse, delinquency prevention social worker, airport clerk, teacher, founder and chief executive officer, case resource manager)? Give summary @ -No Was smoking cessation discussed for >3mins.? @ -No Was critical care preformed (if so, how long)? @ -No Were there social determinants of health that impacted care today? How? (Homelessness, low income, unemployed, alcoholism, drug addiction, transportation, low edu. Level, literacy, decrease access to med. care, intermediate, rehab)? @ -No Was there de-escalation of care discussed even if they declined (Discuss DNR or withdrawal of care, Hospice)? DNR status @ -No What co-morbidities impacted this encounter? (DM, HTN, Smoking, COPD, CAD, Cancer, CVA, ARF, Chemo, Hep., AIDS, mental health diagnosis, sleep apnea, morbid obesity)? @ -None Was patient admitted / discharged? Hospital course, mention meds given and route, prescriptions, significant lab abnormalities, going to OR and other pertinent info. @ -Upon arrival patient seen and evaluated in room 32. Thorough history and physical exam was performed. X-rays performed to the patient's left forearm. He is offered something for pain. Tetanus is updated. Skin tears were repaired with Exofin. He is to follow-up with his primary care doctor to ensure adequate healing. He is to return for any signs of infection. Patient agreeable to this and he was discharged in stable condition Undiagnosed new problem with uncertain prognosis? @ -No Drug Therapy requiring intensive monitoring for toxicity (Heparin, Nitro, Insulin, Cardizem)? @ -No Were any procedures done? @ -No Diagnosis/symptom? @ -Acute fall, skin tear left forearm, skin tear right hand Acute, or Chronic, or Acute on Chronic? @ -Acute Uncomplicated (without systemic symptoms) or Complicated (systemic symptoms)? @ -Uncomplicated Side effects of treatment? @ -No Exacerbation, Progression, or Severe Exacerbation? @ -No Poses a threat to life or bodily function? How? (Chest pain, [place], [place], pneumonia, PE, COPD, DKA, ARF, appy, cholecystitis, CVA, Diverticulitis, Homicidal, Suicidal, threat to staff... and all critical care pts) @ -No Disposition Clinical Impression: Fall, Skin tear, Left forearm pain Disposition: HOME SELF-CARE Condition: Stable Instructions (If sedation given, give patient instructions): Diphtheria/Pertussis/Tetanus Vaccine (By injection), Skin Tear (ED), Fall Prevention (ED) Additional Instructions: Please keep the area clean and protected. Follow-up with your primary care doctor and return for any new or worsening symptoms Is patient prescribed a controlled substance at d/c from ED?: No Referrals: Peter Pastor MD [Primary Care Provider] - 1-2 days Time of Disposition: 14:23
[2024-05-17 15:03] VITALS: BP 121/70; PULSE 68; TEMP 97.9
== END 2024-05-17 15:04 | disposition home or self-care (01) ==
LOC: EC 12:19
DX: S51.812A Laceration without foreign body of left forearm, initial encounter (principal); S61.411A Laceration without foreign body of right hand, initial encounter; Z23 Encounter for immunization; W18.30XA Fall on same level, unspecified, initial encounter
CPT/HCPCS: 90471; 90715; 99283

== ENCOUNTER → 2024-09-24 | Outpatient (CLI) | payer MEDICARE ==
[2024-09-24 15:41] LABS: BUN/Creat Ratio 16.25 Ratio (12.00-20.00); Chloride 104 mmol/L (96-109); Chol/HDL Ratio 3.75 Ratio; Glucose 103 mg/dL (70-110); LDL Cholesterol,Calculated 88.3 mg/dL (0.0-131.0); Potassium 4.9 mmol/L (3.5-5.5); Sodium 141 mmol/L (135-145)
[2024-09-24 15:42] LABS: ALT 14 U/L (10-49); AST 18 U/L (14-35); Albumin 4.2 g/dL (3.8-4.9); Albumin/Globulin Ratio 1.45 Ratio (1.60-3.17); Alkaline Phosphatase 103 U/L (41-126); Calcium 9.6 mg/dL (8.7-10.3); Carbon Dioxide 26.5 mmol/L (21.6-31.8); Globulin 2.9 g/dL (1.6-3.3); Total Bilirubin 0.4 mg/dL (0.3-1.2); Total Protein 7.1 g/dL (6.2-8.2)
== END | disposition home or self-care (01) ==
LOC: LABWHC1 09:11
PROVIDERS: ATTEND Internal Medicine Interventional Cardiology
DX: E78.2 Mixed hyperlipidemia (principal)
CPT/HCPCS: 36415; 80053; 80061